=== PATIENT | female | born 1975 | race Caucasian/White ===

== ENCOUNTER 2017-11-30 19:46 | Emergency (ER) | payer OTHER, SELFPAY ==
[2017-11-30 19:47] VITALS: BP 152/63; PULSE 113; RESP 18; TEMP 36.9; O2SAT 100; BMI 33.9
--- NOTE | 2017-11-30 21:17 | CT_ITS ---
STUDY: CT ABDOMEN AND PELVIS WITHOUT CONTRAST REASON FOR EXAM: Female, 42 years old. Right flank pain RADIATION DOSAGE (If Supplied By Facility): CTDIvol = ( 13.42 ) mGy, DLP = ( 673.84 ) mGycm TECHNIQUE: Transaxial images were obtained from the dome of the diaphragm to the symphysis pubis without oral contrast, and without intravenous contrast. Sagittal and coronal images were reconstructed. Individualized dose optimization techniques were used for this CT. COMPARISON: March 30, 2015 FINDINGS: The visualized lung bases are unremarkable. The visualized portions of the heart are within normal limits. 2.1 cm simple cyst lateral aspect of the liver. Normal gallbladder and extrahepatic biliary system. Normal spleen. Normal pancreas. Normal bilateral adrenal glands. There are punctate bilateral nonobstructing nephroliths. Normal visualized stomach. Normal small intestine. Normal colon. The appendix is visualized and appears normal. Normal abdominal aorta. Normal inferior vena cava. Normal retroperitoneum. Normal urinary bladder. Fat-containing umbilical hernia. Normal osseous structures. Surgical clips noted in the pelvis. CT/Abdomen/Pelvis without Cont IMPRESSION: Nonobstructing bilateral nephroliths. No radiodense ureterolith. Electronically Signed: Armando Carrion MD at 22:17 EST , Service support ,
[2017-11-30] MEDS: Ondansetron 4 MG/2 ML Vial IV (21:31)
[2017-11-30] MEDS: 0.9% Normal Saline 1,000 ML 250 ML IV (21:31)
[2017-11-30] MEDS: Ketorolac 30 MG/ML Syringe IV (21:31)
[2017-11-30 21:40] LABS: Absolute Lymphocyte Count 2.96 X10^3/ul (0.83-4.51); Absolute Neutrophil Count 4.3 X10^3/uL (2.0-7.7); Basophil# 0.02 X10^3/uL; Basophil% 0.2 % (0-1); Eosinophil# 0.23 X10^3/uL; Eosinophils% 2.8 % (0-5); Hematocrit 41.8 % (37-47); Hemoglobin 13.8 g/dl (12.0-15.0); Lymphocyte # 2.96 X10^3/ul (4.0); Lymphocyte % 36.6 % (19-41); Mean Corpuscular Hgb 28.4 pg (27.0-32.0); Monocyte# 0.56 X10^3/uL; Monocyte% 6.9 % (0-10); Neutrophil # 4.31 X10^3/uL (2.7-7.7); Neutrophil % 53.4 % (47-70); Platelet Count 250 K/mm3 (150-450); RBC Distribution Width CV 13.3 % (11.6-14.6); RBC Distribution Width SD 41.9 fl (35.1-43.9); Red Blood Count 4.86 M/mm3 (4.2-5.4); White Blood Count 8.1 K/mm3 (4.4-11.0)
[2017-11-30 21:41] LABS: POSITIVE COUNT NO; POSITIVE DIFFERENTIAL NO; POSITIVE MORPHOLOGY NO
[2017-11-30 21:49] LABS: Anion Gap 7 (5-15); BUN 13 mg/dL (7-18); BUN/Creat Ratio 15.3 RATIO (10-20); Chloride 109 mmol/L (98-107); Creatinine, Serum 0.85 mg/dL (0.55-1.02); EST Glomerular Filtration Rate 79 mL/min (>60); Est Glom Filt Rate - Afr Amer 95 mL/min (>60); Estimated Creatinine Clearance 79.17 ml/min; Glucose 85 mg/dL (74-106); Potassium 3.8 mmol/L (3.5-5.1); Sodium Level 142 mmol/L (136-145)
[2017-11-30 22:03] LABS: Bacteria 0 SEEN /hpf (None Seen); Color, Urine Yellow (Yellow); Glucose, Dipstick Normal (Normal); Ketone-Dipstick Negative (Negative); Leukocyte Esterase-Dipstick Negative /ul (Negative); Mucous, Urine 0 SEEN /hpf (<or=2+); Nitrite-Dipstick Negative (Negative); Occult Blood-Urine Negative /ul (Negative); Protein-Dipstick Negative (Negative); Urine Bilirubin Dipstick Negative (Negative); Urine Clarity Clear (Clear); Urine Urobilinogen Normal (Normal); White Blood Cells 0 SEEN /hpf (0-5)
[2017-11-30 22:18] LABS: Squamous Epithelial Cells - UA 5-10 SEEN /hpf (5-10)
[2017-11-30 22:19] LABS: Red Blood Cells-Urine 0-5 SEEN /hpf (0-5); Yeast-Urine RARE /hpf (None Seen)
--- NOTE | 2017-11-30 22:56 | CT_ITS ---
STUDY: CT ABDOMEN AND PELVIS WITH CONTRAST REASON FOR EXAM: Female, 42 years old. Right flank pain. Possible renal infarct. RADIATION DOSAGE (If Supplied By Facility): CTDIvol = ( 19.33 ) mGy, DLP = ( 2093.82 ) mGycm TECHNIQUE: Transaxial images were obtained from the dome of the diaphragm to the symphysis pubis without oral contrast. 100ML ml of Isovue 300 contrast was administered. Sagittal and coronal images were reconstructed. Individualized dose optimization techniques were used for this CT. COMPARISON: March 30, 2015. November 30, 2017 at 9:43 PM. FINDINGS: The visualized lung bases are unremarkable. The visualized portions of the heart are within normal limits. 2.6 cm simple cyst lateral aspect, anterior segment right lobe of the liver slightly increased in size since the study of 2014. Normal gallbladder and extrahepatic biliary system. Normal spleen. Normal pancreas. Normal bilateral adrenal glands. Scattered punctate nonobstructing bilateral renal calculi noted on the most recent prior study. Scattered renal calculi similar in size were present on the study of 2014. No evidence of a renal infarction. Normal visualized stomach. Normal small intestine. Normal colon. The appendix is well visualized and appears normal. Normal abdominal aorta. Normal inferior vena cava. Normal retroperitoneum. Scattered subcentimeter left para-aortic lymph nodes coronal image 63 unchanged. No intra-abdominal free air. Normal urinary bladder. There is absence of the uterus consistent with a prior hysterectomy. No adnexal masses seen. Subcentimeter right ovarian cysts. Surgical clips in the inferior pelvis in the midline. There is a small umbilical hernia containing fat. Normal osseous structures. CT/Abdomen/Pelvis W IV Cont ONLY IMPRESSION: No acute findings in the abdomen or pelvis. Small bilateral nonobstructing renal calculi. No evidence of a renal infarct. Colon is grossly normal. Simple right hepatic cyst. No evidence of bowel obstruction. Right ovarian cysts compatible with physiologic cysts. Electronically Signed: Ja Ackerman MD at 0:20 EST , Service support ,
--- NOTE | 2017-11-30 22:57 | ED.VISSUMM ---
- ER Visit Summary Date of Service: 11/30/17 Chief Complaint: Flank pain History of Present Illness: The patient is a 42 F who presents with a right flank pain. She states it has been present for little over week. Seems to come and go. Is gotten more severe over the past day. She does have a history of kidney stones and states that it feels similar but is lower than where it should be. She denies any urinary symptoms. No vomiting or diarrhea. Physical Examination: Afebrile vital signs are stable Gen: Well-nourished well-developed patient is pacing the room Head: Normocephalic atraumatic Eyes: Perrl EOMI ENT: TMs clear no rhinorrhea moist mucous membranes Neck: Supple no lymphadenopathy no JVD nontender CVS: Regular rate rhythm no murmurs normal S1-S2 Respiratory: No distress clear to auscultation bilaterally chest nontender Abdomen: Soft nontender nondistended normal bowel sounds no masses Back: Right CVA tenderness she has tenderness just below the severe area as well. Extremity: Nontender no edema Skin: Normal color no rash Neuro: alert orientated ?3 CN II-XII intact normal strength sensation reflexes gait cerebellar Psych: Normal affect normal mood Test Results: CBC chemistries negative urinalysis no hematuria or evidence of infection CT noncontrasted does not demonstrate an obvious source for the patient's pain Emergency Department Course and Treatment: Patient received IV fluids Toradol morphine and Zofran. Discussed with the patient we decided to repeat the CT with IV contrast. This did not add an obvious cause to the patient's pain did not show any renal infarct. I will write the patient for a few [place]. She is to follow-up with her doctor. Impression: 1. Right flank pain This note was generated with [employer] dictation software. It may contain incorrect words, spelling, and punctuation that were not noted in review of the chart prior to signing ED Disposition - Plan for ED Patient: Disposition: Home or Assisted Living Chief Complaint: Flank Pain Instructions: ED Flank Pain Uncertain Cause Prescriptions: Hydrocodone Bitart/Apap 5-325 [[place] 5/325] 1 - 2 tab PO Q4H PRN PRN 4 Days #20 tab PRN Reason: Pain Referrals: Sunil Kenney MD [Primary Care Provider] - 2 Days
--- NOTE | 2017-11-30 23:00 | ED.DCSUM_ITS ---
- ER Visit Summary Date of Service: 11/30/17 Chief Complaint: Flank pain History of Present Illness: The patient is a 42 F who presents with a right flank pain. She states it has been present for little over week. Seems to come and go. Is gotten more severe over the past day. She does have a history of kidney stones and states that it feels similar but is lower than where it should be. She denies any urinary symptoms. No vomiting or diarrhea. Physical Examination: Afebrile vital signs are stable Gen: Well-nourished well-developed patient is pacing the room Head: Normocephalic atraumatic Eyes: Perrl EOMI ENT: TMs clear no rhinorrhea moist mucous membranes Neck: Supple no lymphadenopathy no JVD nontender CVS: Regular rate rhythm no murmurs normal S1-S2 Respiratory: No distress clear to auscultation bilaterally chest nontender Abdomen: Soft nontender nondistended normal bowel sounds no masses Back: Right CVA tenderness she has tenderness just below the severe area as well. Extremity: Nontender no edema Skin: Normal color no rash Neuro: alert orientated ?3 CN II-XII intact normal strength sensation reflexes gait cerebellar Psych: Normal affect normal mood Test Results: CBC chemistries negative urinalysis no hematuria or evidence of infection CT noncontrasted does not demonstrate an obvious source for the patient's pain Emergency Department Course and Treatment: Patient received IV fluids Toradol morphine and Zofran. Discussed with the patient we decided to repeat the CT with IV contrast. This did not add an obvious cause to the patient's pain did not show any renal infarct. I will write the patient for a few [place]. She is to follow-up with her doctor. Impression: 1. Right flank pain This note was generated with [employer] dictation software. It may contain incorrect words, spelling, and punctuation that were not noted in review of the chart prior to signing ED Disposition - Plan for ED Patient: Disposition: Home or Assisted Living Chief Complaint: Flank Pain Instructions: ED Flank Pain Uncertain Cause Prescriptions: Hydrocodone Bitart/Apap 5-325 [[place] 5/325] 1 - 2 tab PO Q4H PRN PRN 4 Days #20 tab PRN Reason: Pain Referrals: Sunil Kenney MD [Primary Care Provider] - 2 Days
[2017-12-01] MEDS: HYDROcodone Bitartrate/Apap 5/325 Tablet PO ×2 (00:04→00:48)
[2017-12-01] MEDS: diazePAM 5 MG Tablet PO (00:04)
[2017-12-01 00:05] VITALS: BP 126/72; PULSE 95; RESP 16; O2SAT 96
[2017-12-01 00:50] VITALS: BP 126/76; PULSE 98; RESP 16; O2SAT 99
== END 2017-12-01 00:51 | disposition home or self-care (01) ==
PROVIDERS: Emergency Provider Emergency Medicine; Family Provider Family Medicine; PCP Family Medicine
DX: R10.9 Unspecified abdominal pain (principal); Z87.442 Personal history of urinary calculi
CPT/HCPCS: 74176; 74177; 80048; 81001; 85025; 96361; 96374; 96375; 99283; J7030; Q9967; A4216; J2405

== ENCOUNTER → 2018-06-22 09:17 | Outpatient (CLI) | payer OTHER, SELFPAY ==
[2018-06-22 10:02] LABS: Thyroid Stim Hormone (TSH) 2.37 uIU/mL (0.358-3.74)
== END ==
PROVIDERS: Family Provider Family Medicine; PCP Family Medicine; Referring Provider Family Medicine; Visit Provider Family Medicine
DX: E04.1 Nontoxic single thyroid nodule (principal)
CPT/HCPCS: 84443

== ENCOUNTER → 2019-02-13 17:53 | Outpatient (CLI) | payer OTHER, SELFPAY ==
[2019-01-31 09:45] VITALS: BMI 33.3
== END ==
PROVIDERS: Family Provider Family Medicine; PCP Family Medicine; Referring Provider Nurse Practitioner Family; Visit Provider Nurse Practitioner Family
DX: R35.0 Frequency of micturition (principal)
CPT/HCPCS: 87086; 87088

== ENCOUNTER 2019-02-22 07:11 | Day surgery (SDC) | payer OTHER, SELFPAY ==
[2019-01-31 09:45] VITALS: BMI 33.3
--- NOTE | 2019-02-01 10:32 | HP_ITS ---
Intake Vital Signs 01/31/19 Body Mass Index (BMI) 33.3 Intake Visit Reasons: Hemorrhoid FU per patient Chief Complaint: recheck rectum Torch Brazer Required: No Is patient in pain?: Yes Allergies sulfamethoxazole [From Bactrim] Allergy (Unknown, Verified 11/22/18 13:01) Unknown trimethoprim [From Bactrim] Allergy (Unknown, Verified 11/22/18 13:01) Unknown amoxicillin trihydrate [From Augmentin] Allergy (Verified 11/22/18 13:01) Other potassium clavulanate [From Augmentin] Allergy (Verified 11/22/18 13:01) Other codeine Adverse Reaction (Verified 11/22/18 13:01) Vomiting Sulfa (Sulfonamide Antibiotics) Adverse Reaction (Verified 11/22/18 13:01) Mucosal lesions Medications Cyclobenzaprine [Flexeril] 10 mg PO PRN PRN 11/30/17 [History Confirmed 11/22/18] Sertraline HCl [Zoloft] 100 mg PO DAILY 11/30/17 [History Confirmed 11/22/18] albuterol sulfate HFA 90 mcg/actuation aerosol inhaler 2 puff INHALATION Q6H PRN 10/24/18 [History Confirmed 11/22/18] cetirizine 10 mg capsule 10 mg PO DAILY PRN 10/24/18 [History Confirmed 11/22/18] hydrocortisone 2.5 % rectal cream with applicator % TOPICAL PRN 10/24/18 [History Confirmed 11/22/18] zolpidem 5 mg tablet 5 mg PO QHS PRN 10/24/18 [History Confirmed 11/22/18] hydrocortisone 2.5 % topical cream with perineal applicator 1 applic RC QD-BID PRN #30 g 01/06/19 [Rx Confirmed 01/06/19] Is last menstrual period known: No Post menopausal: No Patient : No PFSH Medical History Hx of hysterectomy (Acute) Thyroid nodule (Acute) Hemorrhoids (Chronic) Constipation (Acute) Anxiety (Acute) Depression (Acute) Rectal fissure (Acute) Surgical History Hx of bilateral breast reduction surgery (Acute) History of repair of rectocele (Acute) History of tonsillectomy and adenoidectomy (Acute) Family History Mother Heart disease Father Heart disease High cholesterol Social History Smoking Status: Never smoker second hand exposure: No alcohol intake: never substance use type: does not use caffeine: Yes what type of physical activity do you participate in: none frequency: does not exercise HPI HPI HPI: CARLOS MORIN, is a 43 F who presents to the office today for HPI HPI Surgical H&P: Yes HPI: CARLOS MORIN, is a 43 F who presents to the office today for follow- up for anal fissure and hemorrhoids. Patient states she believes her fissure has improved however she thinks her hemorrhoids are worsening. Patient has been using nifedipine with lidocaine ointment as well as some Anusol cream. Patient states she has bowel once daily. States she does have still minimal blood per rectum on the toilet paper. Patient did have a picture which showed enlarged internal hemorrhoids as well as the external residual tissue that has been present previously. Patient has had no previous colonoscopy denies any family history of colon cancer. Patient states that she feels when she sits there is a pressure sometimes she denies straining or prolonged time on the toilet and has been taking the fiber and stool softeners with Senokot about once a week. She states her reflux is much better with the 20 mg of omeprazole daily denies any symptoms. 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 Digital rectal exam patient does have internal components to her hemorrhoids however not overly enlarged at this time, no gross blood or masses on exam normal sphincter tone. Assessment & Plan Problems 1. BRBPR (bright red blood per rectum) K62.5 2. Anal fissure K60.2 3. Hemorrhoids K64.9 4. Gastroesophageal reflux disease K21.9 Plan Sent in a prescription for hydrocortisone 2.5% and lidocaine 5% suppositories as per patient's picture appears she is having issues with internal hemorrhoids circumferentially however in the office the internal hemorrhoids are not as prominent on exam as they were in the patient's picture. Patient states she has been having bowel movements daily has continue the fiber as well as stool softener and does occasional Senokot once a week, she denies straining or prolonged time on the toilet. Reflux controlled with omeprazole 20 mg p.o. daily continue. I have discussed the above with the patient. I have offered the patient colonoscopy for evaluation. I have explained the risks/benefits of the procedure and described the procedure. I have discussed the risks with the patient, including but not limited to: infection, bleeding, perforation of the GI tract requiring emergency surgery, inability to complete the procedure, injury to any internal organs, complications of anesthesia, etc. - the patient understands and agrees to proceed. I have answered all the patient's questions to the patient's satisfaction and the patient has no further questions. The patient has been given instructions for the colon cleansing preparation. 1 day of clears, MiraLAX/Dulcolax split prep Danielle Jackson M.D. Pager: [phone] [facility] [address] [place] [address], [address] [place] [address] Office: [phone] Dulcolax split prep. Orders Orders: Colonoscopy 01/31/19 Plan Detail Follow Up We will schedule colonoscopy Coding Level of Care Code Off vis,est,level 3 Diagnoses BRBPR (bright red blood per rectum) K62.5 Anal fissure K60.2 Hemorrhoids K64.9 Gastroesophageal reflux disease K21.9 02/01/19 1032 <Electronically signed by Danielle Jackson MD> Date Danielle Jackson MD I have examined the patient the following changes are noted: Patient still has occasional issues with her hemorrhoids and some pain with bowel movements however denies any blood. Patient also complains of some bladder pressure states she was treated with Macrobid for UTI however the culture did not show a UTI once it was completed. And she is still having the pressure with urination denies pain.
[2019-02-22 07:35] VITALS: BP 119/90; PULSE 79; RESP 16; TEMP 36.7; O2SAT 100; BMI 33.3
[2019-02-22 08:20] VITALS: BP 119/90; BP 97/60; PULSE 74; RESP 16; TEMP 36.5; O2SAT 100
--- NOTE | 2019-02-22 08:24 | OP.ENDO_ITS ---
02/22/2019 Sunil Kenney [address] [place] [address] Re : Colonoscopy procedure for Maci Garvey Dear Dr. Kenney This procedure was performed on Friday, February 22, 2019. My impressions and recommendations are as follows: Impressions : - Hemorrhoids found on perianal exam. - Non-bleeding external and internal hemorrhoids. - The entire examined colon is normal. - No specimens collected. Recommendations : - Discharge patient to home. - High fiber diet. - Continue present medications. - Repeat colonoscopy in 10 years for screening purposes. My findings are described in the full procedure note, which is enclosed. If I can be of further assistance, please feel free to contact me at Doctor phone number(s): , Work: . Sincerely, MD Danielle Albarran MD 02/22/2019 8:24:47 AM This report has been signed electronically.
[2019-02-22 08:25] VITALS: BP 119/90; BP 99/67; PULSE 76; RESP 16; O2SAT 100
[2019-02-22 08:30] VITALS: BP 119/90; BP 98/69; PULSE 74; RESP 16; O2SAT 100
[2019-02-22 08:38] VITALS: BP 103/72; BP 119/90; PULSE 72; RESP 16; TEMP 36.6; O2SAT 100
[2019-02-22 08:55] VITALS: BP 119/90
== END 2019-02-22 09:01 | disposition home or self-care (01) ==
LOC: EN 07:12 → AC 07:13
PROVIDERS: Family Provider Family Medicine; PCP Family Medicine; Referring Provider Family Medicine; Visit Provider Surgery
PROC: 0DJD8ZZ Inspection of Lower Intestinal Tract, Via Natural or Artificial Opening Endoscopic (ICD-10-PCS; CPT 45378; principal; 2019-02-22 07:55)
DX: K64.0 First degree hemorrhoids (principal); K21.9 Gastro-esophageal reflux disease without esophagitis; K60.2 Anal fissure, unspecified; K64.4 Residual hemorrhoidal skin tags; Z87.19 Personal history of other diseases of the digestive system; Z79.899 Other long term (current) drug therapy; E04.1 Nontoxic single thyroid nodule; F41.9 Anxiety disorder, unspecified; F32.9 Major depressive disorder, single episode, unspecified; J45.909 Unspecified asthma, uncomplicated
CPT/HCPCS: 45378; J7120

== ENCOUNTER 2019-03-06 11:52 | Day surgery (SDC) | payer OTHER, SELFPAY ==
[2019-03-02 10:09] VITALS: BMI 33.3
[2019-03-06] VITALS (9 sets, daily range): BP systolic 113–122; BP diastolic 57–89; PULSE 76–88; RESP 16; TEMP 36.1–36.8; O2SAT 94–100; BMI 33.2
--- NOTE | 2019-03-06 13:08 | HP.PCM_ITS ---
History and Physical Date of Admission: 03/06/19 Intake Vital Signs 03/02/19 Body Mass Index (BMI) 33.3 Intake Visit Reasons: Discuss Hemorroidectomy Surgery Chief Complaint: recheck rectum Finger Cobbler Required: No Is patient in pain?: Yes (rectal pain) Allergies sulfamethoxazole [From Bactrim] Allergy (Unknown, Verified 03/02/19 10:08) Unknown trimethoprim [From Bactrim] Allergy (Unknown, Verified 03/02/19 10:08) Unknown amoxicillin trihydrate [From Augmentin] Allergy (Verified 03/02/19 10:08) Other potassium clavulanate [From Augmentin] Allergy (Verified 03/02/19 10:08) Other codeine Adverse Reaction (Verified 03/02/19 10:08) Vomiting Sulfa (Sulfonamide Antibiotics) Adverse Reaction (Verified 03/02/19 10:08) Mucosal lesions Medications Sertraline HCl [Zoloft] 100 mg PO DAILY 11/30/17 [History Confirmed 03/02/19] albuterol sulfate HFA 90 mcg/actuation aerosol inhaler 2 puff INHALATION Q6H PRN 10/24/18 [History Confirmed 03/02/19] cetirizine 10 mg capsule 10 mg PO DAILY PRN 10/24/18 [History Confirmed 03/02/19] hydrocortisone 2.5 % rectal cream with applicator 1 % TOPICAL PRN PRN 10/24/18 [History Confirmed 03/02/19] zolpidem 5 mg tablet 5 mg PO QHS PRN 10/24/18 [History Confirmed 03/02/19] hydrocortisone 2.5 % topical cream with perineal applicator 1 applic RC QD-BID PRN #30 g 01/06/19 [Rx Confirmed 03/02/19] Omeprazole Magnesium [Prilosec Otc] 20 mg PO DAILY 02/15/19 [History Confirmed 03/02/19] PFSH Medical History Hx of hysterectomy (Acute) Thyroid nodule (Acute) Hemorrhoids (Chronic) Constipation (Acute) Anxiety (Acute) Depression (Acute) Rectal fissure (Acute) Surgical History Hx of bilateral breast reduction surgery (Acute) History of repair of rectocele (Acute) History of tonsillectomy and adenoidectomy (Acute) Family History Mother Heart disease Father Heart disease High cholesterol Social History Smoking Status: Never smoker second hand exposure: No alcohol intake: never substance use type: does not use caffeine: Yes what type of physical activity do you participate in: none frequency: does not exercise HPI HPI HPI: CARLOS MORIN, is a 44 F who presents to the office today for HPI HPI Surgical H&P: Yes HPI: CARLOS MORIN, is a 44 F who presents to the office today for hemorrhoids/anal fissure. Patient states she is still having some blood in the toilet as well as when she is wiping. She also has pain with bowel movements as well as after bowel movements. Patient states the pain is a 5/10 with a bowel movement in 4/10 rest the day. Patient had tried medical management however that has not made much of a difference. Patient's colonoscopy showed a normal colon in internal and external hemorrhoids. Patient would like to proceed with surgery. Patient has been taking fiber gummy supplements as well as stool softeners she has not currently been doing sitz baths. ROS General General: No weight change or fatigue Gastro Gastrointestinal: No abdominal pain, No nausea or vomiting, No diarrhea, Yes blood in stool, Yes acid reflux (controlled with meds), Yes hemorrhoids, No black,tarry stools Exam Const General: cooperative, comfortable, no acute distress Resp Effort & Inspection: normal respiratory effort Cardio Rate: regular rate GI Inspection: non-distended Palpation: soft, no guarding, nontender Other: HAWA: Deferred Neuro General: oriented x3 Cranial Nerves: CN's II-XI intact bilaterally Extrem General: no clubbing, cyanosis or edema Assessment & Plan Problems 1. Anal fissure K60.2 2. BRBPR (bright red blood per rectum) K62.5 3. Hemorrhoids K64.9 Plan Reviewed the procedure: Bolycsjuwifgkocs-1-9 cushions, lateral internal sphincterotomy including risks but not limited to bleeding, infection, incontinence, urinary retention, anal stenosis and anesthesia. Discussed patient will only plan to do only 2 of the 3 columns of hemorrhoidal cushions. Discussed with patient this can be a painful procedure and it is important to balance the pain meds and stool softeners/sitz bath's to try to still continue to have soft stools, no constipation or diarrhea as those can make hemorrhoids worse. Patient was agreeable with plan had no further questions this time. Danielle Jackson M.D. Pager: [phone] [facility] [address] [place] [address], [address] [place] [address] Office: [phone] Plan Detail Follow Up We will schedule surgery Coding Level of Care Code Off vis,est,level 3 Diagnoses Anal fissure K60.2 BRBPR (bright red blood per rectum) K62.5 Hemorrhoids K64.9 03/02/19 1029 <Electronically signed by Danielle Jackson MD> Date Danielle Jackson MD
--- NOTE | 2019-03-06 13:30 | HEM_PTH ---
PATIENT: CARLOS MORIN LOC: [facility] U#:[id number] AGE/SX: 44/F ROOM: RE03/06/[address]: Dr. Danielle Jackson MD : 1975 BED: DIS: 03/06/2019 SPEC #: [id number] RECD: 03/06/19 16:37 STATUS: MARCOS REChelsie #: [id number] TREVOR: 03/06/19 13:[address]: Danielle Jackson DEPT: SURGICAL PATHOLOGY RECD BY: Nestor Wilson ENTERED: 03/07/19 09:15 SP TYPE: HEMORRHOID OTHR DR: Dr. Sunil Kenney MD Tissues: HEMORRHOIDS Procedures: Surgery Specimen Level III HEADER OPERATION: Hemorrhoidectomy, lateral internal sphincterotomy PRE-OP DIAGNOSIS: Anal fissure, hemorrhoids, bright red blood per rectum TISSUE SUBMITTED: Hemorrhoids MICROSCOPIC DIAGNOSIS Hemorrhoids: Fragments of anorectal mucosa with dilated and congested blood vessels, consistent with hemorrhoids. SINDY:ishmael 03/08/19 MICROSCOPIC DESCRIPTION Slides are reviewed. GROSS DESCRIPTION Received in fixative is one container labeled with the patient's name and designated hemorrhoids. The specimen consists of two irregular fragments of pink-benitez soft tissue that in aggregate measure 2.5 x 2 x 0.8 cm. Stitch Bonder Machine Operator Helper sections are submitted in one cassette. / SINDY:ishmael 03/07/19 TC:5 CPT: 56044
[2019-03-06] MEDS: BUPIVACAINE LIPOSOME/PF 20 ML VIAL OPERA.SITE (14:15)
[2019-03-06] MEDS: Dibucaine 30 GM Tube 1 APPLIC (14:25)
--- NOTE | 2019-03-06 14:28 | PCM.OPRPT ---
Report of Operation Date of Procedure: 03/06/19 Pre-Operative Diagnosis: External and internal hemorrhoid, chronic anal fissure Post-Operative Diagnosis: Same Surgery/Procedure Performed:: Hemorrhoidectomy, lateral internal sphincterotomy event marketing specialist: Berry Acuña Type of Anesthesia:: General/Supplemental Anesthesiologist: Liu Martínez Special Medications: None Estimated Blood Loss (mL): 10 cc Fluids Replaced: 1000 cc Description of Procedure: The patient was brought into the operating room and general anesthesia was induced. She was placed in prone jackknife lithotomy position. A timeout was completed verifying correct patient, procedure, site, mposition, and special equipment prior to beginning the procedure. The buttocks were taped apart. Perineum was prepared prepped and draped in standard sterile fashion. Local anesthesia was injected as a perianal nerve block-1% lidocaine one-to-one mixture with Exparel with epi total of 13 mL. Anus carefully dilated. Small Hill-Rodriguez retractor was introduced and 3 marginal pedicles identified. She was noted to have internal and external hemorrhoids at the right posterior location with anal fissure at the posterior position. 2-0 Vicryl suture was placed at the base of the pedicle and retracted externally to exteriorize the hemorrhoidal pedicle. An elliptical incision was made extending from perianal skin to anal rectal ring including both internal and external hemorrhoids and excising a minimal amount of anoderm. Cautery was used to separate the hemorrhoid from the underlying tissue. Careful not to involve any of the sphincter muscle. The pedicle was indicated from the base and sent to pathology. Hemostasis was achieved using electrocautery. Following the hemostasis the skin and mucosal incisions were closed with the running locking suture of 2-0 chromic. Next attention was turned to the left lateral position incision was made in the anal mucosa and the internal sphincter was identified. Using Metzenbaum scissors approximately third of the anal sphincter was divided hemostasis was obtained with electrocautery. The incision was sutured with 2-0 chromic running locking suture A Surgifoam with dibucaine was placed in the anus. The rest of the Exparel was used for local anesthesia for a total of 20 cc throughout the case. A gauze pad tucked between the gluteal folds. The patient tolerated procedure well and was extubated and taken to the postanesthesia care unit in stable condition. - Complications none
--- NOTE | 2019-03-06 14:32 | OP.PCM_ITS ---
Report of Operation Date of Procedure: 03/06/19 Pre-Operative Diagnosis: External and internal hemorrhoid, chronic anal fissure Post-Operative Diagnosis: Same Surgery/Procedure Performed:: Hemorrhoidectomy, lateral internal sphincterotomy records tech: Berry Acuña Type of Anesthesia:: General/Supplemental Anesthesiologist: Liu Martínez Special Medications: None Estimated Blood Loss (mL): 10 cc Fluids Replaced: 1000 cc Description of Procedure: The patient was brought into the operating room and general anesthesia was induced. She was placed in prone jackknife lithotomy position. A timeout was completed verifying correct patient, procedure, site, mposition, and special equipment prior to beginning the procedure. The buttocks were taped apart. Perineum was prepared prepped and draped in standard sterile fashion. Local anesthesia was injected as a perianal nerve block-1% lidocaine one-to-one mixture with Exparel with epi total of 13 mL. Anus carefully dilated. Small Hill-Rodriguez retractor was introduced and 3 marginal pedicles identified. She was noted to have internal and external hemorrhoids at the right posterior location with anal fissure at the posterior position. 2-0 Vicryl suture was placed at the base of the pedicle and retracted externally to exteriorize the hemorrhoidal pedicle. An elliptical incision was made extending from perianal skin to anal rectal ring including both internal and external hemorrhoids and excising a minimal amount of anoderm. Cautery was used to separate the hemorrhoid from the underlying tissue. Careful not to involve any of the sphincter muscle. The pedicle was indicated from the base and sent to pathology. Hemostasis was achieved using electrocautery. Following the hemostasis the skin and mucosal incisions were closed with the running locking suture of 2-0 chromic. Next attention was turned to the left lateral p osition incision was made in the anal mucosa and the internal sphincter was identified. Using Metzenbaum scissors approximately third of the anal sphincter was divided hemostasis was obtained with electrocautery. The incision was sutured with 2-0 chromic running locking suture A Surgifoam with dibucaine was placed in the anus. The rest of the Exparel was used for local anesthesia for a total of 20 cc throughout the case. A gauze pad tucked between the gluteal folds. The patient tolerated procedure well and was extubated and taken to the postanesthesia care unit in stable condition. - Complications none
--- NOTE | 2019-03-06 14:33 | PCM.DC.GS ---
Discharge Diet: Light diet - advance as tolerated Discharge Activity: May not drive while taking narcotic pain medications. May shower in (days): 1 Lifting Restrictions: No lifting greater than 20 pounds x 4 weeks Call your doctor if your incision/area has: Continuous Slow Oozing, Sudden Increased Bleeding, Increased Pain/ Swelling, Increased Redness, Foul Smelling Discharge, Swelling at the incision site Call your doctor if you observe: Fever of 101 or Higher Additional Instructions: It okay to take ibuprofen 400-600 mg PO q6hr PRN along with the Percocet. Avoid Tylenol since there is already Tylenol in the Percocet. Take all pain meds with food. Percocet can cause constipation recommend taking stool softener (i.e. Colace/docusate) daily or twice daily while taking the pain meds. Recommend starting some MiraLAX in 1 to 2 days if no bowel movement. Sitz bath's 2-3 times daily Use dibucaine to the rectal area to the 4 times as needed, once that runs out okay to get [id number] lidocaine 5% and apply similarly. Allergies/Adverse Reactions: Allergies sulfamethoxazole [From Bactrim] Allergy (Unknown, Verified 03/03/19 10:24) Unknown trimethoprim [From Bactrim] Allergy (Unknown, Verified 03/03/19 10:24) Unknown amoxicillin trihydrate [From Augmentin] Allergy (Verified 03/03/19 10:24) Other potassium clavulanate [From Augmentin] Allergy (Verified 03/03/19 10:24) Other codeine Adverse Reaction (Verified 03/03/19 10:24) Vomiting Sulfa (Sulfonamide Antibiotics) Adverse Reaction (Verified 03/03/19 10:24) Mucosal lesions Medications to take at Discharge Sertraline HCl [Zoloft] 100 mg PO DAILY 11/30/17 albuterol sulfate HFA 90 mcg/actuation aerosol inhaler 2 puff INHALATION Q6H PRN 10/24/18 cetirizine 10 mg capsule 10 mg PO DAILY PRN 10/24/18 hydrocortisone 2.5 % rectal cream with applicator 1 % TOPICAL PRN PRN 10/24/18 zolpidem 5 mg tablet 5 mg PO QHS PRN 10/24/18 hydrocortisone 2.5 % topical cream with perineal applicator 1 applic RC QD-BID PRN #30 g 04/12/19 Omeprazole Magnesium [Prilosec Otc] 20 mg PO DAILY 02/15/19 Oxycodone HCl/Acetaminophen [Percocet 5/325] 1 - 2 tablet PO Q4H PRN PRN 5 Days #40 tablet 03/06/19 The following prescriptions were given: Oxycodone HCl/Acetaminophen [Percocet 5/325] 1 - 2 tablet PO Q4H PRN PRN 5 Days #40 tablet PRN Reason: Pain Primary Care Physician: Sunil Kenney MD [Primary Care Provider] - Test Results: Test results from this visit will be discussed in further detail at your follow-up appointment, if applicable. Please Follow Up With: Danielle Jackson MD - At 5:00 on the weekends call [phone] with any concerns When: Call the office for a follow-up appointment in 3 weeks. Proposed Discharge Date: 03/06/19
--- NOTE | 2019-03-06 14:36 | DCINST_ITS ---
Discharge Diet: Light diet - advance as tolerated Discharge Activity: May not drive while taking narcotic pain medications. May shower in (days): 1 Lifting Restrictions: No lifting greater than 20 pounds x 4 weeks Call your doctor if your incision/area has: Continuous Slow Oozing, Sudden Increased Bleeding, Increased Pain/ Swelling, Increased Redness, Foul Smelling Discharge, Swelling at the incision site Call your doctor if you observe: Fever of 101 or Higher Additional Instructions: It okay to take ibuprofen 400-600 mg PO q6hr PRN along with the Percocet. Avoid Tylenol since there is already Tylenol in the Percocet. Take all pain meds with food. Percocet can cause constipation recommend taking stool softener (i.e. Colace/docusate) daily or twice daily while taking the pain meds. Recommend starting some MiraLAX in 1 to 2 days if no bowel movement. Sitz bath's 2-3 times daily Use dibucaine to the rectal area to the 4 times as needed, once that runs out okay to get [id number] lidocaine 5% and apply similarly. Allergies/Adverse Reactions: Allergies sulfamethoxazole [From Bactrim] Allergy (Unknown, Verified 03/03/19 10:24) Unknown trimethoprim [From Bactrim] Allergy (Unknown, Verified 03/03/19 10:24) Unknown amoxicillin trihydrate [From Augmentin] Allergy (Verified 03/03/19 10:24) Other potassium clavulanate [From Augmentin] Allergy (Verified 03/03/19 10:24) Other codeine Adverse Reaction (Verified 03/03/19 10:24) Vomiting Sulfa (Sulfonamide Antibiotics) Adverse Reaction (Verified 03/03/19 10:24) Mucosal lesions Medications to take at Discharge Sertraline HCl [Zoloft] 100 mg PO DAILY 11/30/17 albuterol sulfate HFA 90 mcg/actuation aerosol inhaler 2 puff INHALATION Q6H PRN 10/24/18 cetirizine 10 mg capsule 10 mg PO DAILY PRN 10/24/18 hydrocortisone 2.5 % rectal cream with applicator 1 % TOPICAL PRN PRN 10/24/18 zolpidem 5 mg tablet 5 mg PO QHS PRN 10/24/18 hydrocortisone 2.5 % topical cream with perineal applicator 1 applic RC QD-BID PRN #30 g 04/12/19 Omeprazole Magnesium [Prilosec Otc] 20 mg PO DAILY 02/15/19 Oxycodone HCl/Acetaminophen [Percocet 5/325] 1 - 2 tablet PO Q4H PRN PRN 5 Days #40 tablet 03/06/19 The following prescriptions were given: Oxycodone HCl/Acetaminophen [Percocet 5/325] 1 - 2 tablet PO Q4H PRN PRN 5 Days #40 tablet PRN Reason: Pain Primary Care Physician: Sunil Kenney MD [Primary Care Provider] - Test Results: Test results from this visit will be discussed in further detail at your follow- up appointment, if applicable. Please Follow Up With: Danielle Jackson MD - At 5:00 on the weekends call [phone] with any concerns When: Call the office for a follow-up appointment in 3 weeks. Proposed Discharge Date: 03/06/19
[2019-03-06] MEDS: dexAMETHasone 10 MG/ML Vial IV (15:36)
== END 2019-03-06 16:55 | disposition home or self-care (01) ==
LOC: SDC 11:54 → AC 11:55
PROVIDERS: Family Provider Family Medicine; PCP Family Medicine; Referring Provider Surgery; Visit Provider Surgery
PROC: (CPT 46080; principal; 2019-03-06 13:15)
DX: K64.4 Residual hemorrhoidal skin tags (principal); K64.8 Other hemorrhoids; K60.1 Chronic anal fissure
CPT/HCPCS: 00902; 46080; 46260; 88304; J7120; J2405

== ENCOUNTER 2019-04-11 10:14 | Day surgery (SDC) | payer OTHER, SELFPAY ==
--- NOTE | 2019-03-02 10:29 | HP_ITS ---
Intake Vital Signs 03/02/19 Body Mass Index (BMI) 33.3 Intake Visit Reasons: Discuss Hemorroidectomy Surgery Chief Complaint: recheck rectum Treasury Director Required: No Is patient in pain?: Yes (rectal pain) Allergies sulfamethoxazole [From Bactrim] Allergy (Unknown, Verified 03/02/19 10:08) Unknown trimethoprim [From Bactrim] Allergy (Unknown, Verified 03/02/19 10:08) Unknown amoxicillin trihydrate [From Augmentin] Allergy (Verified 03/02/19 10:08) Other potassium clavulanate [From Augmentin] Allergy (Verified 03/02/19 10:08) Other codeine Adverse Reaction (Verified 03/02/19 10:08) Vomiting Sulfa (Sulfonamide Antibiotics) Adverse Reaction (Verified 03/02/19 10:08) Mucosal lesions Medications Sertraline HCl [Zoloft] 100 mg PO DAILY 11/30/17 [History Confirmed 03/02/19] albuterol sulfate HFA 90 mcg/actuation aerosol inhaler 2 puff INHALATION Q6H PRN 10/24/18 [History Confirmed 03/02/19] cetirizine 10 mg capsule 10 mg PO DAILY PRN 10/24/18 [History Confirmed 03/02/19] hydrocortisone 2.5 % rectal cream with applicator 1 % TOPICAL PRN PRN 10/24/18 [History Confirmed 03/02/19] zolpidem 5 mg tablet 5 mg PO QHS PRN 10/24/18 [History Confirmed 03/02/19] hydrocortisone 2.5 % topical cream with perineal applicator 1 applic RC QD-BID PRN #30 g 01/06/19 [Rx Confirmed 03/02/19] Omeprazole Magnesium [Prilosec Otc] 20 mg PO DAILY 02/15/19 [History Confirmed 03/02/19] PFSH Medical History Hx of hysterectomy (Acute) Thyroid nodule (Acute) Hemorrhoids (Chronic) Constipation (Acute) Anxiety (Acute) Depression (Acute) Rectal fissure (Acute) Surgical History Hx of bilateral breast reduction surgery (Acute) History of repair of rectocele (Acute) History of tonsillectomy and adenoidectomy (Acute) Family History Mother Heart disease Father Heart disease High cholesterol Social History Smoking Status: Never smoker second hand exposure: No alcohol intake: never substance use type: does not use caffeine: Yes what type of physical activity do you participate in: none frequency: does not exercise HPI HPI HPI: CARLOS MORIN, is a 44 F who presents to the office today for HPI HPI Surgical H&P: Yes HPI: CARLOS MORIN, is a 44 F who presents to the office today for hemorrhoids/anal fissure. Patient states she is still having some blood in the toilet as well as when she is wiping. She also has pain with bowel movements as well as after bowel movements. Patient states the pain is a 5/10 with a bowel movement in 4/10 rest the day. Patient had tried medical management however that has not made much of a difference. Patient's colonoscopy showed a normal colon in internal and external hemorrhoids. Patient would like to proceed with surgery. Patient has been taking fiber gummy supplements as well as stool softeners she has not currently been doing sitz baths. ROS General General: No weight change or fatigue Gastro Gastrointestinal: No abdominal pain, No nausea or vomiting, No diarrhea, Yes blood in stool, Yes acid reflux (controlled with meds), Yes hemorrhoids, No black,tarry stools Exam Const General: cooperative, comfortable, no acute distress Resp Effort & Inspection: normal respiratory effort Cardio Rate: regular rate GI Inspection: non-distended Palpation: soft, no guarding, nontender Other: HAWA: Deferred Neuro General: oriented x3 Cranial Nerves: CN's II-XI intact bilaterally Extrem General: no clubbing, cyanosis or edema Assessment & Plan Problems 1. Anal fissure K60.2 2. BRBPR (bright red blood per rectum) K62.5 3. Hemorrhoids K64.9 Plan Reviewed the procedure: Hemorrhoidectomy, lateral internal sphincterotomy including risks but not limited to bleeding, infection, incontinence, urinary retention, anal stenosis and anesthesia. Discussed patient will only plan to do only 2 of the 3 columns of hemorrhoidal cushion. Discussed with patient this can be a painful procedure and it is important to balance the pain meds and stool softeners/sitz bath's to try to still continue to have soft stools, no constipation or diarrhea as those can make hemorrhoids worse. Patient was agreeable with plan had no further questions this time. Danielle Jackson M.D. Pager: [phone] [facility] [address] [place] [address], [address] [place] [id number] Office: [phone] Plan Detail Follow Up We will schedule surgery Coding Level of Care Code Off vis,est,level 3 Diagnoses Anal fissure K60.2 BRBPR (bright red blood per rectum) K62.5 Hemorrhoids K64.9 03/02/19 1029 <Electronically signed by Danielle Hernandez am, MD> Date _ Danielle Jackson MD I have re-examined the patient. There are no clinical changes since date of exam.
[2019-03-06 12:17] VITALS: BMI 33.2
[2019-04-11 10:30] VITALS: BP 135/70; PULSE 89; RESP 16; TEMP 37.3; O2SAT 100; BMI 32.9
--- NOTE | 2019-04-11 11:50 | HEM_PTH ---
PATIENT: CARLOS MORIN LOC: [facility] [place] U#:[id number] AGE/SX: 44/F ROOM: RE04/11/[address]: Dr. Danielle Jackson MD : 1975 BED: DIS: 04/11/2019 SPEC #: [id number] RECD: 04/11/19 16:38 STATUS: MARCOS REChelsie #: [id number] TREVOR: 04/11/19 11:[address]: Danielle Jackson DEPT: SURGICAL PATHOLOGY RECD BY: Jack June ENTERED: 04/12/19 12:33 SP TYPE: HEMORRHOID OTHR DR: Dr. Sunil Kenney MD Tissues: HEMORRHOIDS Procedures: Surgery Specimen Level III HEADER OPERATION: Hemorrhoidectomy PRE-OP DIAGNOSIS: Hemorrhoids TISSUE SUBMITTED: Hemorrhoids MICROSCOPIC DIAGNOSIS Hemorrhoids, hemorrhoidectomy: Submucosal vascular ectasia and thrombosis consistent with hemorrhoid. AM:ishmael 04/13/19 MICROSCOPIC DESCRIPTION Slides are reviewed. GROSS DESCRIPTION Received in fixative is one container labeled with the patient's name and designated hemorrhoids. The specimen consists of a polypoid piece of benitez mucosal tissue measuring 1.5 x 1 x 0.7 cm. The specimen is bisected and reveals congested cut surfaces. The entire specimen is submitted in one cassette. / SJ:rg 04/12/19 TC:5 [facility]: [id number]
[2019-04-11] MEDS: Bupivacaine Mpf 0.5% 30 ML VIAL (12:25)
[2019-04-11] MEDS: Lubricating Jelly 60 GM Tube 30 GM TOPICAL (12:25)
[2019-04-11] MEDS: BUPIVACAINE LIPOSOME/PF 20 ML VIAL OPERA.SITE (12:30)
[2019-04-11] MEDS: Dibucaine 30 GM Tube 1 APPLIC (12:43)
--- NOTE | 2019-04-11 12:50 | PCM.OPRPT ---
Report of Operation Date of Procedure: 04/11/19 Pre-Operative Diagnosis: Hemorrhoidectomy Post-Operative Diagnosis: Same Surgery/Procedure Performed:: Hemorrhoidectomy paper roll machine operator: Karthik Sanchez Type of Anesthesia:: General/Supplemental Anesthesiologist: Chris Eric Special Medications: none Specimen's removed: hemorrhoid Estimated Blood Loss (mL): < 10 cc Fluids Replaced: 1000 cc Description of Procedure: The patient was brought into the operating room and general anesthesia was induced. She was placed in prone jackknife lithotomy position. A timeout was completed verifying correct patient, procedure, site, mposition, and special equipment prior to beginning the procedure. The buttocks were taped apart. Perineum was prepared prepped and draped in standard sterile fashion. Local anesthesia was injected as a perianal nerve block-0.5% lidocaine one-to-one mixture with Exparel with epi total of 10 mL. Anus carefully dilated. Small Hill-Rodriguez retractor was introduced. She was noted to have mainly an external hemorrhoid at the left lateral/posterior location with separation of the mucosa from the previous hemorrhoidectomy internally to that. 0 Vicryl suture was placed at the base of the pedicle. An elliptical incision was made excising the external hemorrhoid with minimal amount of anoderm. Cautery was used to separate the hemorrhoid from the underlying tissue. Careful not to involve any of the sphincter muscle. The hemorrhoid was sent to pathology. Suture of 2-0 chromic was used to reapproximate the previous area of hemorrhoidectomy to the area the previous external hemorrhoid. Hemostasis was achieved using electrocautery. Following the hemostasis the skin and mucosal incisions were closed with the running locking suture of 2-0 chromic. A Surgifoam with dibucaine was placed in the anus. The rest of the Exparel was used for local anesthesia for a total of 20 cc throughout the case. A gauze pad tucked between the gluteal folds. The patient tolerated procedure well and was extubated and taken to the postanesthesia care unit in stable condition. - Complications none
--- NOTE | 2019-04-11 12:57 | DCINST_ITS ---
Discharge Diet: Light diet - advance as tolerated Discharge Activity: May not drive while taking narcotic pain medications. Lifting Restrictions: No lifting greater than 20 pounds x 4 weeks Call your doctor if your incision/area has: Continuous Slow Oozing, Sudden Increased Bleeding, Increased Pain/ Swelling, Increased Redness, Foul Smelling Discharge, Swelling at the incision site Call your doctor if you observe: Fever of 101 or Higher Remove Dressing in (days):: 1 - Okay to remove the Surgifoam from the rectum if it does not fall out on its own Allergies/Adverse Reactions: Allergies sulfamethoxazole [From Bactrim] Allergy (Unknown, Verified 04/10/19 14:54) Unknown trimethoprim [From Bactrim] Allergy (Unknown, Verified 04/10/19 14:54) Unknown amoxicillin trihydrate [From Augmentin] Allergy (Verified 04/10/19 14:54) Other potassium clavulanate [From Augmentin] Allergy (Verified 04/10/19 14:54) Other codeine Adverse Reaction (Verified 04/10/19 14:54) Vomiting Sulfa (Sulfonamide Antibiotics) Adverse Reaction (Verified 04/10/19 14:54) Mucosal lesions Medications to take at Discharge Sertraline HCl [Zoloft] 100 mg PO DAILY 11/30/17 albuterol sulfate HFA 90 mcg/actuation aerosol inhaler 2 puff INHALATION Q6H PRN 10/24/18 cetirizine 10 mg capsule 10 mg PO DAILY PRN 10/24/18 hydrocortisone 2.5 % rectal cream with applicator 1 % TOPICAL PRN PRN 10/24/18 zolpidem 5 mg tablet 5 mg PO QHS PRN 10/24/18 Omeprazole Magnesium [Prilosec Otc] 20 mg PO DAILY 02/15/19 hydrocortisone 2.5 % topical cream with perineal applicator 1 applic TOPICAL BID-TID PRN #30 g 03/24/19 Oxycodone HCl/Acetaminophen [Percocet 5/325] 1 - 2 tab PO Q6H PRN PRN 6 Days #40 tab 04/11/19 The following prescriptions were given: Oxycodone HCl/Acetaminophen [Percocet 5/325] 1 - 2 tab PO Q6H PRN PRN 6 Days #40 tab PRN Reason: Pain Transmission Status: Received by [facility] Primary Care Physician: Sunil Kenney MD [Primary Care Provider] - Test Results: Test results from this visit will be discussed in further detail at your follow- up appointment, if applicable. Please Follow Up With: Danielle Jackson MD - At 5 PM and on the weekends call [phone] with any concerns When: Follow-up in office in 2 to 3 weeks. Proposed Discharge Date: 04/11/19
[2019-04-11 13:09] VITALS: BP 117/61; BP 135/71; PULSE 88; RESP 14; TEMP 36.2; O2SAT 94
[2019-04-11 13:16] VITALS: BP 109/62; BP 135/71; PULSE 85; RESP 14; O2SAT 94
[2019-04-11 13:29] VITALS: BP 116/66; BP 135/71; PULSE 83; RESP 14; O2SAT 100
[2019-04-11 13:35] VITALS: BP 115/65; BP 135/71; PULSE 88; RESP 16; TEMP 36.2; O2SAT 92
[2019-04-11 14:31] VITALS: BP 125/61; BP 135/71; PULSE 93; RESP 16; TEMP 36.6; O2SAT 99
== END 2019-04-11 14:39 | disposition home or self-care (01) ==
LOC: SDC 10:16 → AC 10:16
PROVIDERS: Family Provider Family Medicine; PCP Family Medicine; Referring Provider Surgery; Visit Provider Surgery
PROC: (CPT 46999; principal; 2019-04-11 11:35)
DX: K64.5 Perianal venous thrombosis (principal); F41.9 Anxiety disorder, unspecified; F32.9 Major depressive disorder, single episode, unspecified; K21.9 Gastro-esophageal reflux disease without esophagitis; J45.909 Unspecified asthma, uncomplicated; Z79.51 Long term (current) use of inhaled steroids; Z79.899 Other long term (current) drug therapy
CPT/HCPCS: 46999; 88304; J7120; J2405

== ENCOUNTER → 2020-04-01 13:52 | Outpatient (CLI) | payer OTHER, SELFPAY ==
[2019-04-27 13:15] VITALS: BMI 32.9
--- NOTE | 2020-04-01 13:55 | RAD_ITS ---
STUDY: X-RAY - LUMBAR SPINE REASON FOR EXAM: Female, 45 years old. lumbago with sciatica right side TECHNIQUE: 4 view(s) of the lumbar spine were obtained. COMPARISON: None FINDINGS: Normal lumbar lordosis. There is no substantial scoliosis. There is a normal alignment of the vertebrae. Normal vertebral bodies and endplates. Normal disc space heights. Fallopian tube clips. Pelvic sutures. RAD/L/S Spine Min 4 Views IMPRESSION: Normal x-ray examination of the lumbar spine. Electronically Signed: David Damian MD at 23:56 EDT Tel , Service support ,
== END ==
PROVIDERS: PCP Family Medicine; Referring Provider Family Medicine; Visit Provider Family Medicine
DX: M54.41 Lumbago with sciatica, right side (principal)
CPT/HCPCS: 72110

== ENCOUNTER → 2020-04-08 14:56 | Outpatient (CLI) | payer OTHER, SELFPAY ==
[2019-04-27 13:15] VITALS: BMI 32.9
--- NOTE | 2020-04-08 14:59 | BI_ITS ---
MAMMOGRAPHY - BILATERAL SCREENING REASON FOR EXAM: Female, 45 years old. Routine annual screening examination. PERTINENT HISTORY: Non-contributory. History of prior bilateral breast reduction surgery and lift. TECHNIQUE: Digital bilateral breast ivory (3D mammographic acquisition) in the CC and MLO projections. 2-D mediolateral oblique (MLO) and craniocaudad (CC) views of both breasts were obtained. CAD: Full Field Digital Mammography with Computer Added Detection was performed. COMPARISON: None. Baseline examination. FINDINGS: Breast Composition: The breasts are heterogeneously dense, which may obscure small masses. There are no dominant masses or suspicious calcifications. No other significant abnormalities are identified. BI/SCREEN MAMM (CAD) W/IVORY BILAT IMPRESSION: Negative screening mammogram. Yearly followup mammogram recommended. (A) ASSESSMENT CATEGORY: BIRADS Category 1: Negative. A letter regarding these results will be sent to the patient by the facility within 30 days. Approximately 10% of breast cancers are not detected by mammography. A normal mammogram should not delay biopsy of a clinically suspicious abnormality. [id number] Electronically Signed: Tristan Pollock, at 8:08 EDT , Service support ,
== END ==
PROVIDERS: PCP Family Medicine; Referring Provider Family Medicine; Visit Provider Family Medicine
DX: Z12.31 Encounter for screening mammogram for malignant neoplasm of breast (principal)
CPT/HCPCS: 77063; 77067

== ENCOUNTER → 2020-05-10 12:37 | Outpatient (CLI) | payer OTHER, SELFPAY ==
[2019-04-27 13:15] VITALS: BMI 32.9
--- NOTE | 2020-05-10 13:00 | MRI_ITS ---
STUDY: MRI LUMBAR SPINE WITHOUT CONTRAST REASON FOR EXAM: Female, 45 years old. Back pain into R leg TECHNIQUE: Standardized fat and water weighted pulse sequences were obtained in the sagittal and axial planes. COMPARISON: X-ray 04/01/2020 FINDINGS: T12-L1: Normal endplates. Normal disc height, hydration and morphology. Normal bilateral facet joints. Normal central canal and bilateral lateral recesses. Normal bilateral intervertebral neural foramina. Normal lumbar lordosis. There is no substantial scoliosis. Normal conus medullaris that terminates at the T12/L1. L1-2: Normal endplates. Normal disc height, hydration and morphology. Normal bilateral facet joints. Normal central canal and bilateral lateral recesses. Normal bilateral intervertebral neural foramina. L2-3: Mild disc desiccation but no disc protrusion, spinal stenosis, or neural foraminal stenosis. L3-4: Normal endplates. Normal disc height, hydration and morphology. Normal bilateral facet joints. Normal central canal and bilateral lateral recesses. Normal bilateral intervertebral neural foramina. L4-5: Mild broad disc protrusion produces mild spinal stenosis and mild bilateral neural foraminal stenosis. L5-S1: Normal endplates. Normal disc height, hydration and morphology. Normal bilateral facet joints. Normal central canal and bilateral lateral recesses. Normal bilateral intervertebral neural foramina. Normal visualized sacral ala. Normal visualized paraspinous soft tissue structures. MRI/Spine Lumbar (Routine) IMPRESSION: Multilevel degenerative changes, as described above. Electronically Signed: Isai Nichole MD at 14:06 EDT Tel , Service support ,
== END ==
PROVIDERS: PCP Family Medicine; Referring Provider Family Medicine; Visit Provider Family Medicine
DX: M54.9 Dorsalgia, unspecified (principal)
CPT/HCPCS: 72148

== ENCOUNTER → 2020-06-26 | Outpatient (CLI) | payer OTHER, SELFPAY ==
[2019-04-27 13:15] VITALS: BMI 32.9
--- NOTE | 2020-06-26 13:43 | US_ITS ---
STUDY: THYROID ULTRASOUND REASON FOR EXAM: Female, 45 years old. NODULES TECHNIQUE: Ultrasound evaluation of the thyroid was performed with real-time and static black-scale imaging. COMPARISON: Prior thyroid ultrasound of 01/14/2016 FINDINGS: RIGHT LOBE: The right lobe of the thyroid gland measures 5.7 x 1.5 x 1.7 cm. There is a heterogeneous echotexture. There are multiple nodules present throughout the right thyroid. The largest nodule is 1.7 x 1.3 x 0.7 cm, hypoechoic, ovoid and wider than tall with marked internodular vascularity. LEFT LOBE: The left lobe of the thyroid gland measures 5.3 x 1.6 x 1.8 cm. There is a heterogeneous echotexture. Numerous subcentimeter complex nodules consistent with choroid cysts. ISTHMUS: The isthmus measures 0.3 centimeter. US/Thyroid IMPRESSION: No substantial change in size or appearance of the thyroid. Numerous nodules bilaterally and generally heterogeneous parenchyma. The dominant follicle of the right thyroid is not substantially changed in appearance and is slightly smaller than on the prior exam. Electronically Signed: Marita Padgett MD at 18:25 EDT , Service support ,
== END | disposition home or self-care (01) ==
LOC: US 13:42
PROVIDERS: PCP Family Medicine; Referring Provider Family Medicine; Visit Provider Family Medicine
DX: E04.1 Nontoxic single thyroid nodule (principal)
CPT/HCPCS: 76536

== ENCOUNTER 2020-07-18 12:00 | Outpatient (RCR) | payer OTHER, SELFPAY ==
[2019-04-27 13:15] VITALS: BMI 32.9
--- NOTE | 2020-04-05 10:24 | HP.PTEVAL ---
Patient's Visit Information CARLOS MORIN is a 45 year old F referred to Physical Therapy by Dr. Felix Ovalle MD with a diagnosis of LOW BACK PAIN. Date of Evaluation: 04/05/20 Physical Therapist: Adali Garcia, PT, Cert MDT - Visit Plan Frequency: 2-3x /Week Duration: 4-6 Weeks Plan: US, IF-ESTIM WITH MH OR CP, POSTURE CORRECTION/STRENGTHENING, INSTRUCTION IN APPROPRIATE BODY MECHANICS AND ACTIVITY MODIFICATIONS. DLS STARTING WITH A NEUTRAL SPINE PROGRESSING ROM TOLERATED. ERASMO LE ROM, STRETCHING AND STRENGTHENING. HEP INSTRUCTION. - Subjective Work/Leisure: [employer]. ONLY MISSED 2 DAYS OF WORK. WORKING NOW. Disability: NO. Present symptoms: RIGHT LOW BACK PAIN, RIGHT THIGH, LEG, FOOT AND TOES. ALSO HAS NUMBESS AND TINGLING IN THE LEG. NO LLE SX'S. Present since: ABOUT A MONTH AGO. Pain Scale: WORST 7/10, LEAST 2/10. Currently: 4/10. Commenced as a result of: HELPIING LOAD A GRILL IN THE CAR AND TWISTED WHILE PULLING. Symptoms at onset: LOW BACK. Worse: SITTING, AT WORK AND AFTER WORK, REPETATIVE MOTIONS LIKE VACUMING, BENDING, LIFTING, TWISTING. Better: ICE, MOTRIN, TYLONOL, NEUROTIN. Disturbed sleep: YES. Previous history/Previous treatment: H/O INTERMITTENT MILD LOW BACK PAIN SELF TREATED. Treatment this episode: NEUROTIN - CURRENT, 2 ROUNDS OF STEROID - DONE, MUSCLE RELAXER - DONE. Coughing/sneezing/straining: NEGATIVE. Gait: DIFFICULTY INITIATING GAIT AFTER SITTING. Difficulty initiating urinatin: NO. Accidents: NO. Unexplained weight loss: NO. Imaging: LUMBAR X-RAY - NORMAL PER PATIENT REPORT AND [employer] EMR. PMH: DEPRESSION. H/O NECK PROBLEMS TREATED WITH PT. Recent major surgery: HYSTERECTOMY - Objective Sitting/Standing Posture: POOR. Lordosis: NORMAL. Lateral shift: NO. Relevant shift: N/A. Active Correction of posture: BETTER ACTIVELY AND PASSIVELY WITH LUMBAR SUPPORT. Other Observations: INDEP GAIT INTO PT. DIFFICULTY TRANSITIONING FROM SIT TO STAND AND INITIATING GAIT AFTER SITTING. LOOKS UNCOMFORTABLE SITTING. SIFTS WEIGHT TO LEFT BUTTOCK. Motor deficit: ERASMO LE'S GROSSLY 5/5 WITH MMT'ING EXCEPT RIGHT HIP 4/5. Sensory deficit: ERASMO LE LIGHT TOUCH SENSATION INTACT AND SYMMETRICAL. ROM deficit: ERASMO LE'S WFL. Reflexes: 2/3 ERASMO LE'S. Dural Signs: POSITIVE RIGHT LE. Lumbar mvmt loss: flex - MOD. ext - MOD. R SG - MOD. L SG - GIGI. PATIENT WITH INCREASED LB DISCOMFORT/TIGHTNESS AT THE END OF THE AVAILABLE ROM ALL PLANES. Core strength: POOR. Palpation: TENDERNESS WITH PALPATION OF THE LOWER LUMBAR SPINE AND RIGHT PARASPINAL REGIONS. TREATMENT: NEUROMUSCULAR REEDUCATION - RETRAINING OF MVMT AND POSTURE FOR SITTING, LYING AND STANDING ACTIVITIES. - Goals Goal 1:: DECREASE C/O LOW BACK AND RIGHT LE SXS'. Goal Time Frame: 4-6 Weeks Goal 2:: IMPROVE PERSONAL CARE, LIFTING, SITTING, STANDING, SLEEP, RECREATIONAL AND WORK FUNCTION Goal Time Frame: 4-6 Weeks Goal 3:: INSTRUCT IN PROPHYLAXIS Goal Time Frame: 4-6 Weeks - Anticipated Interventions Patient/Client Instruction: Educate patient on: Condition, Plan of Care, Risk Factors, Benefits of Fitness Program For the Purpose of:: To improve self management Therapeutic Exercise to Include: Strength training, Body mechanics, Postural training, Flexibilty training, Neuromotor development, Dynamic Lumbar Stabilization For the Purpose of:: To decrease pain, To improve muscle performance and motor function, To increase tolerance to activity/condition/position, To improve ability of physical actions for home/community/work/leisure TENS: Yes IF ES: Yes Cryotherapy (ice pack, ice massage): Yes Thermo therapy (hot pack): Yes Ultrasound (thermal/non thermal): Yes For the Purpose of:: To decrease pain, To improve nutrient delivery to tissue Thank you for the opportunity to evaluate your patient. For Medicare and Medicare HMO plans, please review the plan of care and approve it. It will need to be FAXED BACK to us at [phone] for Medicare purposes. For Medicare only, by signing this I certify the plan of care. Please let me know if there are questions or concerns regarding this plan of care. Physician Signature: Date:
--- NOTE | 2020-04-17 13:04 | HP.PTREVAL_ITS ---
Dr. Felix Ovalle MD, It has been my pleasure to treat CARLOS MORIN over the last 6 visits for LOW BACK PAIN. Please see the progress note below for an update on the physical therapy plan of care! Subjective: PATIENT REPORTS HER BACK IS FEELING A LITTLE BETTER BUT LEG IS NOT BETTER. FEELING SOME PIN PRICKS ON THE OUTSIDE OF THE RIGHT LEG AND ON THE TOP OF THE RIGHT FOOT. HAD SX'S IN TOES INTITIALLY BUT THAT HAD GONE AWAY. NO WORSE WITH EX'S. RIGHT LEG AND FOOT SX'S CAME ON IN SITTING. PATIENT REPORTS SHE IS FRUSTRATED WITH THE PAIN AND WANTS TO SEE THE DOCTOR AGAIN. SHE REPORTS THAT WHEN SHE GOT HOME FROM WORK YESTERDAY SHE TOLD HER THAT HER LEG HURT SO BAD SHE WANTED TO CUT IT OFF. Objective/Function: PATIENT CONTINUES TO HAVE LIMITED LUMBAR MOBILITY AND POSITIVE RIGHT LE DURAL SIGN. REDUCED SX' AFTER THERAPY AGAIN TODAY THOUGH. RIGHT ANKLE IS STILL STRONG. HAVING FOOT SX'S (TINGLING ON THE TOP OF THE FOOT) AGAIN. PATIENTS GAIT AND TRANSFERS ARE VERY GUARDED. Plan Plan: US, IF-ESTIM WITH MH OR CP, POSTURE CORRECTION/STRENGTHENING, INSTRUCTION IN APPROPRIATE BODY MECHANICS AND ACTIVITY MODIFICATIONS. DLS STARTING WITH A NEUTRAL SPINE PROGRESSING ROM TOLERATED. ERASMO LE ROM, STRETCHING AND STRENGTHENING. HEP INSTRUCTION. Goals Goal 1:: DECREASE C/O LOW BACK AND RIGHT LE SXS'. Goal Time Frame: 4-6 Weeks Goal Progress: Not Progressing Goal 2:: IMPROVE PERSONAL CARE, LIFTING, SITTING, STANDING, SLEEP, RECREATIONAL AND WORK FUNCTION Goal Time Frame: 4-6 Weeks Goal Progress: Not Progressing Goal 3:: INSTRUCT IN PROPHYLAXIS Goal Time Frame: 4-6 Weeks Goal Progress: Not Progressing Anticipated Interventions Patient/Client Instruction: Educate patient on: Condition, Plan of Care, Risk Factors, Benefits of Fitness Program For the Purpose of:: To improve self management Therapeutic Exercise to Include: Strength training, Body mechanics, Postural training, Flexibilty training, Neuromotor development, Dynamic Lumbar Stabilization For the Purpose of:: To decrease pain, To improve muscle performance and motor function, To increase tolerance to activity/condition/position, To improve gustabo lity of physical actions for home/community/work/leisure TENS: Yes IF ES: Yes Cryotherapy (ice pack, ice massage): Yes Thermo therapy (hot pack): Yes Ultrasound (thermal/non thermal): Yes For the Purpose of:: To decrease pain, To improve nutrient delivery to tissue Please do not hesitate to contact me at [phone] by phone or if you have questions or concerns regarding this new plan of care! Sincerely, Adali Garcia, PT, Cert MDT
--- NOTE | 2020-06-28 10:36 | HP.PTREVAL_ITS ---
Dr. Felix Elena MD, It has been my pleasure to treat CARLOS MORIN over the last 15 visits for LOW BACK PAIN. Please see the progress note below for an update on the physical therapy plan of care! Subjective: PATIENT REPORTS SHE HAD AN INJECTION WITH DR. GREENBERG LAST WEDNESDAY AND IT ACTUALLY DID HELP. SHE REPORTS HER LOW BACK IS FEELING BETTER. SHE REPORTS HER LEG IS STILL BOTHERING HER A LOT AND SHE HAS WEAKNESS IN HER RIGHT LEG. STATES FEELING A LOT OF NUMBNESS, WEAKNESS AND SOME PAIN IN THE RIGHT THIGH AND CALF. STATES SHE NOTIFIED DR. GREENBERG'S OFFICE ABOUT HER RIGHT LE NUMBESS AND HE WANTED TO SEE HER. SHE REPORTS SHE FOLLOWED UP WITH DR. GREENBERG WEDNESDAY AND HE TOLD HER HER MRI DOESN'T LOOK THAT BAD SO ORDERED A NERVE CONDUCTION TEST. SAW DR. ELENA YESTERDAY OUT OF FRUSTRATION. STATES DR. ELENA IS GOING TO GET IN TOUCH WITH DR. GREENBERG AND SEE IF THE INJECTION CAUSED SOME OF THE NUMBNESS AND FIND OUT WHEN THE NCT WOULD BE. PATIENT IS SUPPOSED TO CONTACT DR. ELENA IF THE NUMBNESS GETS WORSE BUT STATES HE DID NOT RECOMMEND SHE SEE ANOTHER SPECIALIST YET. STATES THEY DISCUSSED A CONSULT WITH DR LENNON THOUGH POSSIBLY IN THE FUTURE. STILL WORKING. WORKED WEDNESDAY BUT A LOT OF PAIN IN THE LEG AFTER. SCHEDULED FOR THIS . PATIENT IS QUESTIONING WHY SHE IS HAVING RIGHT LE WEAKNESS NOW BECAUSE SHE IS WORKING AND DOING PT NOT JUST LYING AROUND. PATIENT REPORTS THAT THE MORE EX SHE DOES THE WORSE IT SEEMS TO FLARE HER UP. STATES SHE HAS NOT BEEN DOING HOME EX'S BECAUSE OF THAT. PATIENT IS REQUESTING LAND VS AQUATIC THERAPY IF FURTHER THERAPY IS RECOMMENDED. Objective/Function: PATIENT WAS SEEN TODAY FOR RE-ASSESSMENT OF PROGRESS TOWARD THE SET PT GOALS AND THE NEED FOR FURTHER PHYSICAL THERAPY VS READINESS FOR DISCHARGE. WITH TESTING OBJECTIVELY AND WITH SUBJECTIVE REPORTS PATIENT SHOWS IMPROVEMENT SINCE STARTING PT BUT REPORTS OF RIGHT LE SX'S (PAIN, NUMBNESS WEAKNESS) ARE OF CONCERN. SHE REPORTS 50% IMPROVEMENT OVER ALL AND HER BACK PAIN IS BETTER AND BACK FEELS LOOSER BUT SHE IS NOT REPORTING IMPROVENT IN HER RIGHT LE SX'S AND HER OSWESTRY SCORE HAS NOT IMPROVED. PATIENT IS ADDRESSING HER RIGHT LE SX'S WITH THE DOCTORS AND COMMUNICATES A GOOD UNDERSTANDING OF TRYING TO AVOID INCREASING RIGHT LE SX'S WITH PT. THIS PT RECOMMENDS CONTINUING PT BASED ON OBJECTIVE TESTING IMPROVEMENTS SEEN AND ROOM FOR FUTHER IMPROVEMENT WITH TRIAL BACK TO LAND PT. UPON EXAM TODAY: INDEP GAIT INTO PT. INDEP TRANSFER SIT TO STAND WITHOUT UE ASSIST AND LESS DIFFICULTY INITIATING GAIT A FTER SITTING COMPARED TO INITIAL EVAL. APPEARS TO TOLERATE SITTING IN THE CLINIC BETTER NOW COMPARED TO INITIAL EVAL WELL. TRANSFERS OFF AND ON TREATMENT TABLE ARE STILL GUARDED. Motor deficit: ERASMO LE'S GROSSLY 5/5 WITH MMT'ING. Sensory deficit: DECREASED RIGHT THIGH LIGHT TOUCH SENSATION REPORTED COMPARED TO LEFT WITH TESTING. ROM deficit: ERASMO LE'S WFL. Reflexes: 2/3 ERASMO LE'S. Dural Signs: NEGATIVE ERASMO LE'S. Lumbar mvmt loss: flex - MIN. ext - MOD. R SG - MOD. L SG - MOD. ROM TESTING DOES NOT APPEAR TO HAVE AN EFFECT ON PAIN TODAY. Core strength: POOR. Palpation: PATIENT STILL WITH TENDERNESS WITH PALPATION OF RIGHT LUMBAR PARASPINAL REGION. Plan Plan: MONITOR RIGHT LE PAIN, NUMBNESS AND WEAKNESS. CONTINUE PT TRANSITIONING BACK TO LAND 3X'S A WK X 3 WKS FOR PAIN RELEIF (US), POSTURE CORRECTION/STRENGTHENING, INSTRUCTION IN APPROPRIATE BODY MECHANICS AND ACTIVITY MODIFICATIONS. DLS TOLERATED. TRUNK ROM TOLERATED. ERASMO LE ROM, STRETCHING AND STRENGTHENING. FURTHER WRITTEN HEP. PATIENT IS AGREEABLE. Goals Goal 1:: DECREASE C/O LOW BACK AND RIGHT LE SXS'. Goal Time Frame: 4-6 Weeks Goal Progress: Not Progressing Goal 2:: IMPROVE PERSONAL CARE, LIFTING, SITTING, STANDING, SLEEP, RECREATIONAL AND WORK FUNCTION Goal Time Frame: 4-6 Weeks Goal Progress: Not Progressing Goal 3:: INSTRUCT IN PROPHYLAXIS Goal Time Frame: 4-6 Weeks Goal Progress: Not Progressing Anticipated Interventions Patient/Client Instruction: Educate patient on: Condition, Plan of Care, Risk Factors, Benefits of Fitness Program For the Purpose of:: To improve self management Therapeutic Exercise to Include: Strength training, Body mechanics, Postural training, Flexibilty training, Neuromotor development, Dynamic Lumbar Stabilization For the Purpose of:: To decrease pain, To improve muscle performance and motor function, To increase tolerance to activity/condition/position, To improve ability of physical actions for home/community/work/leisure TENS: Yes IF ES: Yes Cryotherapy (ice pack, ice massage): Yes Thermo therapy (hot pack): Yes Ultrasound (thermal/non thermal): Yes For the Purpose of:: To decrease pain, To improve nutrient delivery to tissue Please do not hesitate to contact me at [phone] by phone or Fax: if you have questions or concerns regarding this new plan of care! Sincerely, Adali Garcia, PT, Cert MDT
--- NOTE | 2020-08-27 13:11 | HP.PTDCSUM ---
It has been my pleasure to treat CARLOS MORIN referred by Dr. Felix Ovalle MD, with the diagnosis of LOW BACK PAIN for a total of 19 visit(s). Discharge Date: Please see the following information for a summary of their discharge status. Subjective: PATIENT REPORTS SHE SEEMED TO HAVE DONE OK WITH HER LAST TWO PT SESSION BUT SHE WORKED OVER THE WEEKEND AND HAS HAD EVEN MORE LEG PAIN SINCE. STATES THE EX'S DIDN'T MAKE HER WORSE BUT DIDN'T SEEM TO HELP EITHER. BACK IS STARTING TO GET SORE AGAIN TOO. ANA'T WITH DR. LENNON ON WEDNESDAY. STILL WAITING FOR NCT - SCHEDULED FOR END OF SEP 2020 BUT RECENTLY MOVED UP TO AUG 05 2020. STILL FEELING WEAKNESS IN THE LEG SINCE RADHIKA AND BACK PAIN IS BACK TO WHERE IT WAS BEFORE THE SHOT. BACK Pain Intensity (Out of 10): 3 RIGHT LE Pain Intensity (Out of 10): 5 FOOT Pain Intensity (Out of 10): 3 % Improvement: 50 Objective/Function: PATIENT IS NOT IMPROVING FUNCTIONALLY AND IS REPORTING INCREASING PAIN LEVELS. SPINE CONSULT PENDING WEDNESDAY. WILL HOLD UNTIL AFTER CONSULT. Goal 1:: DECREASE C/O LOW BACK AND RIGHT LE SXS'. Goal Progress: Not Progressing Goal 2:: IMPROVE PERSONAL CARE, LIFTING, SITTING, STANDING, SLEEP, RECREATIONAL AND WORK FUNCTION Goal Progress: Not Progressing Goal 3:: INSTRUCT IN PROPHYLAXIS Goal Progress: Not Progressing Plan: HOLD PT UNTIL SPINE CONSULT WEDNESDAY MORNING. PATIENT TO CALL IF SURGEON RECOMMENDS STOPPING PT. If there are questions or concerns regarding this patient's physical therapy, please feel free to call me at [phone]. Thank you for the referral of this patient. Sincerely, Adali Garcia, PT, Cert MDT
--- NOTE | 2020-08-27 13:14 | HP.PT.NRP ---
CARLOS MORIN was seen in my office for initial evaluation on 04/05/20. The following Plan of Care was established for this patient: Initial Frequency: 2-3x /Week Initial Duration: 4-6 Weeks Patient/Client Instruction: Educate patient on: Condition, Plan of Care, Risk Factors, Benefits of Fitness Program For the Purpose of:: To improve self management Therapeutic Exercise to Include: Strength training, Body mechanics, Postural training, Flexibilty training, Neuromotor development, Dynamic Lumbar Stabilization For the Purpose of:: To decrease pain, To improve muscle performance and motor function, To increase tolerance to activity/condition/position, To improve ability of physical actions for home/community/work/leisure TENS: Yes IF ES: Yes Cryotherapy (ice pack, ice massage): Yes Thermo therapy (hot pack): Yes Ultrasound (thermal/non thermal): Yes For the Purpose of:: To decrease pain, To improve nutrient delivery to tissue This patient was last seen in our office 07/18/20. Pertinent comments regarding their Physical therapy will appear below: This patient has not returned to Physical Therapy and is appropriate to return to MD for further follow-up as needed. At this point I will be discontinuing this patient from physical therapy. I would be happy to see this patient again in the future if found appropriate by the physician. Thank you! Adali Garcia, PT, Cert MDT
== END 2020-07-18 19:00 | disposition home or self-care (01) ==
LOC: PT 12:00
PROVIDERS: PCP Family Medicine; Visit Provider Family Medicine
DX: M54.41 Lumbago with sciatica, right side (principal)
CPT/HCPCS: 97014; 97035; 97110; 97112; 97113; 97162; 97164; 97530; G0283

== ENCOUNTER → 2020-07-29 10:12 | Outpatient (CLI) | payer OTHER, SELFPAY ==
[2020-07-22 08:14] VITALS: BMI 33.3
--- NOTE | 2020-07-29 10:13 | MRI_ITS ---
STUDY: MRI LUMBAR SPINE WITHOUT CONTRAST REASON FOR EXAM: Female, 45 years old. increasing pain back and rt leg x 5 months TECHNIQUE: Standardized fat and water weighted pulse sequences were obtained in the sagittal and axial planes. COMPARISON: 05/10/2020 FINDINGS: T12-L1: Normal endplates. Normal disc height, hydration and morphology. Normal bilateral facet joints. Normal central canal and bilateral lateral recesses. Normal bilateral intervertebral neural foramina. Normal lumbar lordosis. There is no substantial scoliosis. Normal conus medullaris that terminates at the T12/L1. L1-2: Normal endplates. Normal disc height, hydration and morphology. Normal bilateral facet joints. Normal central canal and bilateral lateral recesses. Normal bilateral intervertebral neural foramina. L2-3: Mild disc desiccation but no disc protrusion, spinal stenosis, or neural foraminal stenosis. L3-4: Normal endplates. Normal disc height, hydration and morphology. Normal bilateral facet joints. Normal central canal and bilateral lateral recesses. Normal bilateral intervertebral neural foramina. L4-5: No change in the mild broad disc protrusion which produces mild spinal stenosis and mild bilateral neural foraminal stenosis. L5-S1: Normal endplates. Normal disc height, hydration and morphology. Normal bilateral facet joints. Normal central canal and bilateral lateral recesses. Normal bilateral intervertebral neural foramina. Normal visualized sacral ala. Normal visualized paraspinous soft tissue structures. MRI/Spine Lumbar (Routine) IMPRESSION: No change from 05/10/2020. Electronically Signed: Isai Nichole MD at 12:35 EST Tel , Service support ,
== END ==
PROVIDERS: PCP Family Medicine; Referring Provider Orthopaedic Surgery; Visit Provider Orthopaedic Surgery
DX: M54.5 Low back pain (principal); M54.16 Radiculopathy, lumbar region
CPT/HCPCS: 72148

== ENCOUNTER → 2020-08-05 11:56 | Outpatient (CLI) | payer OTHER, SELFPAY ==
[2019-04-27 13:15] VITALS: BMI 32.9
[2020-07-22 08:14] VITALS: BMI 33.3
--- NOTE | 2020-08-05 13:29 | NEURO_ITS ---
NCS and/or EMG Patient Report Ordering Doctor: Shahnaz Mckeon DATE OF SERVICE: 08/05/20 Indication: The patient reports a back injury in February 2020 while twisting to unload her car. Since that time she has experienced burning pain which will radiate down the right lower extremity. Evaluate for lumbosacral radiculopathy. Findings: Nerve conduction studies were performed in the right and left lower extremity. The right peroneal motor study recording the extensor digitorum brevis showed a normal amplitude, normal distal latency and normal conduction velocity. No conduction block or focal slowing was present across the fibular neck. The right tibial motor study recording the abductor hallucis brevis showed a normal amplitude, normal distal latency and normal conduction velocity. Right sural sensory response showed a normal amplitude and conduction velocity. Right superficial peroneal sensory response showed a normal amplitude and conduction velocity. The left peroneal motor study recording the extensor digitorum brevis showed a normal amplitude, normal distal latency and normal conduction velocity. No c onduction block or focal slowing was present across the fibular neck. The left tibial motor study recording the abductor hallucis brevis showed a normal amplitude, normal distal latency and normal conduction velocity. Left sural sensory response showed a normal amplitude and conduction velocity. Left superficial peroneal sensory response showed a normal amplitude and conduction velocity. Needle EMG of the right lower extremity and lumbar paraspinal muscles was performed. No denervation was present in any muscle. All motor unit morphology, activation and recruitment patterns were normal. Impression: This is a normal study. There is no electrophysiologic evidence of lumbosacral radiculopathy, plexopathy, or peripheral neuropathy in the right lower extremity. Please note: the electrodiagnosis of radiculopathy is made on the basis of excluding peripheral nerve lesions on nerve conduction studies and the needle EMG demonstrating denervation and/or reinnervation in the distribution of one or more nerve roots (i.e., acute and/or chronic axonal loss). Thus, electrodiagnostic studies are insensitive in detecting radiculopathy in the absence of axonal loss (e.g., in the setting of compression resulting in intermittent ischemia or mechanical deformation; or demyelination without axonal loss). Thus, clinical correlation is required in the interpretation of this negative electrodiagnostic study for radiculopathy. Xavier Cooper D.O.
== END ==
PROVIDERS: PCP Family Medicine; Referring Provider Anesthesiology Pain Medicine; Visit Provider Anesthesiology Pain Medicine
DX: R20.2 Paresthesia of skin (principal)
CPT/HCPCS: 95886; 95910

== ENCOUNTER 2020-08-29 13:00 | Outpatient (RCR) | payer OTHER, SELFPAY ==
--- NOTE | 2020-08-08 17:17 | HP.PTEVAL ---
Patient's Visit Information CARLOS MORIN is a 45 year old F referred to Physical Therapy by Dr. Carlos Rodriguez DO with a diagnosis of R piriformis syndrome. Date of Evaluation: 08/08/20 Physical Therapist: CLARISA SparksT, OCS, CSCS - Visit Plan Frequency: 2-3x /Week Duration: 4-6 Weeks Plan: 2-3x/week for 2-4 weeks... DTR to R piriformis, stretch R piri, ITB and HS, US thermal to R pirformis, strengthen hip stabs R. - Subjective Hurting since early February after turning adn putting stuff in car. Back got better but leg still hurts. R buttock down laterally to ankle at times. Had MRI and does have ruptured disc on L but symptoms are on R. Had injections from [facility] which helped briefly then pain returned(L5 injections). Had water and land therapy prior to ortho and did a lot of table exercises and strength. Had US to LB and ES. Sleep is not great because of this pain. Pain is 5/10 most days. Worse tranistioning to stad[place] and sitting too long. 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 Basic aDLs are OK, just slow. Hobbies 3 kids 17,15, 12. no time for hobbies. - Pain R buttock and leg Pain Intensity (Out of 10): 4 Pain Intensity Range: 5, 7 - Objective Waalks with slight R antralgia lacking ext at end stance on R.Transfers from adn to sit I. Transfers on table slow and painful until she gets where she is going. LB ext mod limited adn slight painful R. B SB min limited, flexion slow but full. R piriformis tight only compared to L and painful at end range stretch. ITB slightly tight r vs L. HS min tight and increase pain to stretch R. reflexes 2/3 patella and achilles. Sensation WNL to gross light touch LE. Strefngth LE 4/5 without myotomal abnormalities. repeated ext, L SGIS NE on symptoms nor do PA mobs. Max tender R piriformis which is not tender on L side. - Goals Goal 1:: patient pain in R LE 2/10 at worst and 70% better. Goal Time Frame: 4-6 Weeks Goal 2:: Pt I in appropriate HEP to limit future problems. Goal Time Frame: 4-6 Weeks Goal 3:: LEFS score 60/80 Goal Time Frame: 4-6 Weeks Goal 4:: transition in bed without pain. Goal Time Frame: 4-6 Weeks - Rehabilitation Potential Physical Therapy Diagnosis: R piriformis syndrome. Rehabilitation Potential: Fair - Anticipated Interventions Patient/Client Instruction: Educate patient on: Condition, Plan of Care For the Purpose of:: To decrease pain, To improve muscle performance and motor function, To increase tolerance to activity/condition/position, To improve ability of physical actions for home/community/work/leisure, To improve gait and locomotor functions Therapeutic Exercise to Include: Strength training, Flexibilty training, Gait and locomotor training, Passive ROM, Active ROM For the Purpose of:: To decrease pain, To improve muscle performance and motor function Manual Therapy Techniques to Include: Trigger point massage, Mobilization, Passive ROM, Soft tissue mobilization For the Purpose of:: To decrease pain, To increase ROM, To improve muscle performance and motor function, To improve ability of physical actions for home/community/work/leisure Cryotherapy (ice pack, ice massage): Yes Ultrasound (thermal/non thermal): Yes - therml For the Purpose of:: To decrease pain Thank you for the opportunity to evaluate your patient. For Medicare and Medicare HMO plans, please review the plan of care and approve it. It will need to be FAXED BACK to us at [phone] for Medicare purposes. For Medicare only, by signing this I certify the plan of care. Please let me know if there are questions or concerns regarding this plan of care. Physician Signature: Date:
--- NOTE | 2020-08-29 13:35 | HP.PTDCSUM ---
It has been my pleasure to treat CARLOS MORIN referred by Dr. Carlos Rodriguez DO, with the diagnosis of R piriformis syndrome for a total of 6 visit(s). Discharge Date: 08/29/20 Please see the following information for a summary of their discharge status. Subjective: Feel a little better during day with less intense symptoms. Nights stilla struggle. Hard to stay comfortable. R leg worse at night. 3/10 during day when has been moving. Lying flat is most cofortable. Sees Doctor in the next week. Has [facility] neurosurgeon consult Wednesday for second opinion. R buttock and leg Pain Intensity (Out of 10): 2 % Improvement: 30 Objective/Function: L/S ext slow and limited with R sided pain unaffected by repeated motions. Flexion and R SB full and L SB slow and painful R LB. reflexes aptella moustapha chilles 2/3 B. Sensation WNL to gross light touch in B LE but c/o some numbness lateral R upper leg. Strength 4+/5 in LE. Still appears tender to roll on table. Hip ROM now symmetrical and R hip moving wella dn without pain. Overall better hip ROM and flexibility but not the concomitant improvement in symptoms that we hoped for. Goal 1:: patient pain in R LE 2/10 at worst and 70% better. Goal Progress: Progressing Goal 2:: Pt I in appropriate HEP to limit future problems. Goal Progress: Goal Met Goal 3:: LEFS score 60/80 Goal Progress: Not Progressing Goal 4:: transition in bed without pain. Goal Progress: Not Progressing Plan: Pt to schedule with doctor for next appropriate medical step. Would be happy to continue seeing for core strength if no other options appropriate. Pt will cotninue pirifromis stretches and rollotu at home via HEP. Discharge Comments: Pt to schedule with doctor due to lack of adequate improvement. Piriformis treatment has not been overly helpful. still appears low back related to this therapist but patient is to check with doctor as she has had low back therapy in the past without adequate results. If there are questions or concerns regarding this patient's physical therapy, please feel free to call me at [phone]. Thank you for the referral of this patient. Sincerely, Chris Conde, DPT, OCS, CSCS
== END 2020-08-29 19:00 | disposition home or self-care (01) ==
LOC: PT 13:00
PROVIDERS: PCP Family Medicine; Visit Provider Orthopaedic Surgery
DX: G57.01 Lesion of sciatic nerve, right lower limb (principal)
CPT/HCPCS: 97035; 97110; 97140; 97162; 97164

== ENCOUNTER → 2020-09-11 14:14 | Outpatient (CLI) | payer OTHER, SELFPAY ==
--- NOTE | 2020-09-11 14:44 | RAD_ITS ---
chronic low back pain with right sided sciatica Sacroiliac joints 3 views No priors Findings: No significant erosions. No subchondral sclerosis. The sacroiliac joints are not widened There is minimal vacuum phenomena seen at the inferior sacroiliac joints. Small osteophytes are also noted. Clips are seen overlying the pelvis suspect for tubal ligation devices RAD/S-I Jts 3 or More Views IMPRESSION: No acute pathology at 0142 Reported and signed by: Phyllis Tsai DO Electronically Signed: Phyllis Tsai DO at 1:41 EST Tel , Service support ,
--- NOTE | 2020-09-11 14:44 | RAD_ITS ---
STUDY: X-RAY - PELVIS REASON FOR EXAM: Female, 45 years old. Chronic low back pain with right sided sciatica TECHNIQUE: One view of the pelvis was obtained. COMPARISON: None. FINDINGS: There is a non-specific bowel gas pattern. Tubal ligation clips are seen overlying the mid right side of the pelvis. Normal bilateral iliac wings, sacroiliac joints and visualized sacrum. Normal visualized bilateral superior and inferior pubic rami. Normal pubic symphysis. Normal ischial tuberosities. Normal visualized right femoral head. Normal right acetabulum. Normal right hip joint. Normal visualized left femoral head. Normal left acetabulum. Normal left hip joint. RAD/Pelvis 1 or 2 Views IMPRESSION: Normal x-ray examination of the pelvis. Electronically Signed: Tristan Pollock, at 10:25 EST , Service support ,
[2020-09-11 18:20] LABS: Erythrocyte Sedimentation Rate 14 mm/hr (0-20)
[2020-09-11 18:22] LABS: Absolute Lymphocyte Count 2.08 X10^3/uL (0.83-4.51); Absolute Neutrophil Count 4.1 X10^3/uL (2.0-7.7); Basophil# 0.04 X10^3/uL; Basophil% 0.6 % (0-1); Eosinophil# 0.14 X10^3/uL; Hematocrit 46.1 % (37-47); Hemoglobin 14.7 g/dL (12.0-15.0); Lymphocyte # 2.08 X10^3/ul (4.0); Lymphocyte % 29.4 % (19-41); Mean Corp Hgb Conc 31.9 g/dL (32-36); Mean Corpuscular Hgb 27.6 pg (27.0-32.0); Mean Corpuscular Volume 86.7 fL (81-99); Mean Platelet Vol. 10.7 fl (6.2-12.0); Monocyte% 9.9 % (0-10); NRBC Flagged by Analyzer 0 % (0-5); Platelet Count 318 K/mm3 (150-450); RBC Distribution Width CV 13.4 % (11.6-14.6); RBC Distribution Width SD 42.6 fl (35.1-43.9); Red Blood Count 5.32 M/mm3 (4.2-5.4); White Blood Count 7.1 K/mm3 (4.4-11.0)
[2020-09-11 18:26] LABS: Anion Gap 6 (5-15); BUN 14 mg/dL (7-18); BUN/Creat Ratio 17.1 RATIO (10-20); CRP 3.25 mg/L (0.0-3.0); Chloride 112 mmol/L (98-107); Creatinine, Serum 0.82 mg/dL (0.55-1.02); EST Glomerular Filtration Rate 81 mL/min (>60); Est Glom Filt Rate - Afr Amer 98 mL/min (>60); Glucose 87 mg/dL (74-106); Potassium 4.1 mmol/L (3.5-5.1); Rheumatoid Factor < 10.0 IU/mL (<15); Sodium Level 141 mmol/L (136-145)
[2020-09-13 17:02] LABS: ANTINUCLEAR ANTIBODIES DIRECT Negative (Negative)
[2020-09-17 20:32] LABS: HLA B27 Negative (.)
== END ==
PROVIDERS: PCP Family Medicine; Referring Provider Family Medicine; Visit Provider Family Medicine
DX: M54.16 Radiculopathy, lumbar region (principal); M54.41 Lumbago with sciatica, right side; G89.29 Other chronic pain
CPT/HCPCS: 36415; 72170; 72202; 80048; 81374; 85025; 85652; 86038; 86140; 86431

== ENCOUNTER 2020-10-11 13:13 | Emergency (ER) | payer OTHER, SELFPAY ==
[2020-09-29 12:32] VITALS: BMI 32.9
[2020-10-11 13:13] VITALS: BP 125/80; PULSE 90; RESP 20; TEMP 36.6; O2SAT 98; BMI 33.3
--- NOTE | 2020-10-11 13:46 | EKG12_ITS ---
Test Reason : GEN ILLNESS Blood Pressure : / mmHG Vent. Rate : 082 BPM Atrial Rate : 082 BPM P-R Int : 104 ms QRS Dur : 072 ms QT Int : 384 ms P-R-T Axes : 040 014 008 degrees QTc Int : 448 ms Sinus rhythm with short MS Low voltage QRS Borderline ECG Confirmed by ÁNGEL MELO, JUSTEN ([id number]), greeting card editor CIRA MCAHUCA ([id number]) on 10/16/2020 6:37:23 AM Referred By: AURA Confirmed By:JUSTEN NEAL MD
--- NOTE | 2020-10-11 13:49 | ED.DCSUM_ITS ---
- ER Visit Summary Date of Service: 10/11/20 Chief Complaint: Dizziness and palpitations History of Present Illness: The patient is a 45 F who presents with dizziness and palpitations that began today. Patient states her dizziness feels like a spinning sensation. Patient states that at times she feels her heart racing. Patient states that yesterday she was having some nausea, vomiting, and diarrhea. Patient also admits to a cough with some sputum production. Patient recently tested positive for COVID-19 on 09/29/2020. Patient states she still has a sore throat and some rhinorrhea from that. Patient admits to subjective chills but denies any fevers. Patient also admits to mild headache. Physical Examination: Vital signs are stable. Patient is afebrile. Patient is in no acute distress. Oral mucosa is pink and moist. Neck is supple. Trachea is midline. There is no JVD noted. Heart was regular rate and rhythm. Lungs are clear and equal bilaterally. Abdomen is soft. Bowel sounds are normal. There is no tenderness. There is no rebound or guarding noted. Skin is warm dry. Cranial nerves II through XII are intact. There are no focal motor or sensory deficits noted. Extremities are intact. There is no calf tenderness or edema. Test Results: EKG was obtained. On my interpretation, it shows normal sinus rhythm with a rate of 82. There are no acute ST or T wave changes. Portable 1 view chest x-ray was obtained. On my interpretation, lung conteh are clear. There is normal cardiac silhouette. Bony thorax is normal. There is no acute process noted. Radiologist also interpreted the x-ray and agrees. CBC was normal. Comprehensive metabolic profile was essentially within normal limits. Emergency Department Course and Treatment: Patient was given IV fluids. Patient is feeling better on reevaluation. Patient was advised of her findings. Patient was instructed to follow-up with her primary care physician in 5 to 7 days. Patient was advised that she may return to work when she is symptom-free as it has been more than 10 days since her positive COVID-19 test. Patient understood and was agreeable with the plan. All questions were answered. Disposition: Discharge home Impression: 1. COVID-19 This note was generated with [employer] software. It may contain incorrect words, spelling, and punctuation that were not noted in review of the chart prior to signing ED Disposition - Plan for ED Patient: Disposition: Home or Assisted Living Diagnosis: COVID-19 Instructions: Coronavirus Disease 2019 (COVID-19): Overview Referrals: Felix Ovalle MD [Primary Care Provider] - 3-5 Days
[2020-10-11 14:19] LABS: Absolute Lymphocyte Count 1.47 X10^3/uL (0.83-4.51); Absolute Neutrophil Count 3.9 X10^3/uL (2.0-7.7); Basophil# 0.03 X10^3/uL; Basophil% 0.5 % (0-1); Eosinophil# 0.09 X10^3/uL; Eosinophils% 1.4 % (0-5); Hematocrit 41.2 % (37-47); Hemoglobin 13.6 g/dL (12.0-15.0); Lymphocyte # 1.47 X10^3/ul (4.0); Lymphocyte % 23.2 % (19-41); Mean Corpuscular Hgb 28.3 pg (27.0-32.0); Mean Corpuscular Volume 85.7 fL (81-99); Mean Platelet Vol. 9.9 fl (6.2-12.0); Monocyte# 0.81 X10^3/uL; Monocyte% 12.8 % (0-10); NRBC Flagged by Analyzer 0 % (0-5); Neutrophil # 3.91 X10^3/uL (2.7-7.7); Neutrophil % 61.6 % (47-70); Platelet Count 216 K/mm3 (150-450); RBC Distribution Width CV 13.1 % (11.6-14.6); RBC Distribution Width SD 40.7 fl (35.1-43.9); Red Blood Count 4.81 M/mm3 (4.2-5.4); White Blood Count 6.3 K/mm3 (4.4-11.0)
--- NOTE | 2020-10-11 14:25 | RAD_ITS ---
STUDY: X-RAY CHEST REASON FOR EXAM: Female, 45 years old. POSITIVE FOR COVID ON 09/29/20 -- C/O BRADYCARDIA AND CP WITH DIZZINESS TECHNIQUE: Single AP portable view of the chest. COMPARISON: None. FINDINGS: EKG electrodes are seen. The lungs are clear and expanded. There is no demonstrated pleural abnormality. Normal size heart. Normal mediastinum and kim. Normal visualized pulmonary arteries. Normal visualized aortic arch and descending thoracic aorta. Normal visualized thoracic spine. Normal visualized ribs, clavicles, and shoulders. There is no demonstrated abnormality of the visualized soft tissue structures of the upper abdomen. RAD/Chest 1 View (Portable) IMPRESSION: Normal x-ray examination of the chest. Electronically Signed: Tristan Pollock, at 14:49 EST , Service support ,
[2020-10-11 14:28] VITALS: BP 125/80; PULSE 90; RESP 22; TEMP 36.6; O2SAT 98
[2020-10-11 14:37] LABS: ALB/GLOB Ratio 0.9 RATIO (0.9-2.4); AST(SGOT) 49 U/L (15-37); Alanine Aminotransfer ALT/SGPT 76 U/L (13-56); Albumin, Serum 3.4 g/dL (3.2-5.0); Alkaline Phosphatase 126 U/L (45-117); Anion Gap 5 (5-15); BUN 16 mg/dL (7-18); Calcium,Total 8.6 mg/dL (8.5-10.1); Chloride 112 mmol/L (98-107); Creatinine, Serum 0.73 mg/dL (0.55-1.02); EST Glomerular Filtration Rate 93 mL/min (>60); Est Glom Filt Rate - Afr Amer 112 mL/min (>60); Estimated Creatinine Clearance 89.41 ml/min; Globulin 3.6 g/dL (2.2-4.2); Glucose 55 mg/dL (74-106); Potassium 4.1 mmol/L (3.5-5.1); Sodium Level 140 mmol/L (136-145)
[2020-10-11 15:25] VITALS: BP 112/66; BP 115/61; BP 116/73; PULSE 82; PULSE 83; PULSE 90
[2020-10-11 15:26] VITALS: BP 116/73; PULSE 90; RESP 15; O2SAT 98
== END 2020-10-11 15:31 | disposition home or self-care (01) ==
PROVIDERS: Emergency Provider Emergency Medicine; PCP Family Medicine
DX: U07.1 COVID-19 (principal)
CPT/HCPCS: 71045; 80053; 85025; 93005; 99285; A4216

== ENCOUNTER 2021-05-12 06:32 | Day surgery (SDC) | payer OTHER, SELFPAY ==
[2021-04-22 14:16] VITALS: BMI 34.1
[2021-05-12 07:10] VITALS: BP 132/84; PULSE 84; RESP 16; TEMP 37.4; O2SAT 100; BMI 34.0
[2021-05-12] MEDS: Lactated Ringers 1,000 ML 100 ML IV (07:19)
--- NOTE | 2021-05-12 07:57 | RAD_ITS ---
STUDY: X-RAY - LUMBAR SPINE REASON FOR EXAM: Female, 46 years old. Intraoperative digital documentation images. TECHNIQUE: 2 intraoperative digital documentation view(s) of the lumbar spine were obtained. COMPARISON: None FINDINGS: 2 intraoperative digital documentation views. RAD/Lumbar Spine 2 or 3 Views IMPRESSION: Intraoperative digital documentation views Electronically Signed: Dallas Skelton MD at 9:34 EDT , Service support ,
[2021-05-12] MEDS: MethylPREDNISolone Acetate 80 MG/ML Vial (08:05)
[2021-05-12] MEDS: 0.9% Normal Saline (Pres. free 10 ML Vial (08:05)
[2021-05-12] MEDS: Bupivacaine Mpf 0.5% 30 ML VIAL (08:05)
[2021-05-12] MEDS: Lidocaine 1% (5 ml sdv) 5 ML Vial (08:05)
[2021-05-12 08:15] VITALS: BP 132/84; BP 137/69; PULSE 82; RESP 16; TEMP 36.3; O2SAT 97
[2021-05-12 08:20] VITALS: BP 131/73; BP 132/84; PULSE 78; RESP 16; O2SAT 98
[2021-05-12 08:25] VITALS: BP 129/78; BP 132/84; PULSE 79; RESP 16; O2SAT 98
[2021-05-12 08:30] VITALS: BP 125/85; BP 132/84; PULSE 74; RESP 16; TEMP 36.6; O2SAT 98
[2021-05-12 09:06] VITALS: BP 132/84
--- NOTE | 2021-05-12 10:57 | PCM.OPRPT ---
Report of Operation Date of Procedure: 05/12/21 Description of Surgical Findings:: PREOPERATIVE DIAGNOSES: 1. Lumbosacral radiculopathy. 2. Lumbosacral degenerative disk disease. 3. Lumbosacral spinal stenosis. POSTOPERATIVE DIAGNOSES: 1. Lumbosacral radiculopathy. 2. Lumbosacral degenerative disk disease. 3. Lumbosacral spinal stenosis. PROCEDURE PERFORMED: Right-sided lumbar transforaminal epidural steroid injection, L3-4 and L4-5. ANESTHESIA: MAC. BLOOD LOSS: Minimal. COMPLICATIONS: None. DESCRIPTION OF PROCEDURE: History and physical of today was reviewed. Risks and benefits of the procedure were explained. The patient understood and agreed to proceed. Informed consent was obtained. IV inserted per routine protocol. The patient was taken to the operating room and placed in the prone position with a pillow positioned underneath the abdomen. The right side of the lower back was prepped and draped in a sterile fashion using iodine x3. Under fluoroscopy guidance on oblique view, the L3 through L5 vertebral bodies were visualized. The skin and subcutaneous tissue was anesthetized with approximately 5 mL of 1% lidocaine using a 25-gauge regular needle. Under direct visualization with fluoroscopy at approximately 35-degree angle, starting on the right L3, ending on the right L5, using a 22-gauge 5-inch spinal needle, the needle was advanced via the skin. The tip of the needle was maneuvered and directed towards the inferior and medial gutter of the transverse process at the superiormost aspect of the neural foramen. Once the tip of the needle was at the vicinity of the foramen, after negative aspiration for blood or CSF, a total of 1 mL of contrast was injected in divided doses between both levels to confirm correct placement of the needle as well as medial spread. The confirmation was obtained on AP as well as lateral view. After repeated negative aspiration and confirmation on AP as well as lateral view, a total of 6 mL of preservative-free 0.25% Marcaine with 80 mg of Depo-Medrol was injected in divided doses between both levels. The needles were then removed intact. The patient experienced no sign or symptoms of intrathecal or intravascular injection. The patient experienced no paresthesia. The procedure was completed without any apparent difficulty or any complications. The patient appeared to tolerate it well. ASSESSMENT AND PLAN: This is a 46-year-old female with lumbosacral radiculopathy, lumbosacral degenerative disk disease, and lumbosacral spinal stenosis, status post right-sided lumbar transforaminal epidural steroid injection at L3-4 and L4-5. The patient will continue her current medications. The patient will follow up in approximately 2 weeks for reevaluation..
== END 2021-05-12 09:06 | disposition home or self-care (01) ==
LOC: SDC 06:33 → AC 06:34
PROVIDERS: PCP Family Medicine; Referring Provider Anesthesiology Pain Medicine; Visit Provider Anesthesiology Pain Medicine
PROC: 3E0S3BZ Introduction of Anesthetic Agent into Epidural Space, Percutaneous Approach (ICD-10-PCS; CPT 64484; principal; 2021-05-12 07:55)
DX: M51.17 Intervertebral disc disorders with radiculopathy, lumbosacral region (principal); M48.07 Spinal stenosis, lumbosacral region; K21.9 Gastro-esophageal reflux disease without esophagitis; E78.00 Pure hypercholesterolemia, unspecified
CPT/HCPCS: 64484; 64483; 72100; J7120; J3490

== ENCOUNTER → 2021-06-11 09:23 | Outpatient (CLI) | payer OTHER, SELFPAY | PROVIDERS: PCP Family Medicine; Referring Provider Family Medicine; Visit Provider Family Medicine | DX: E04.1 Nontoxic single thyroid nodule (principal) | CPT/HCPCS: 36415; 84439; 84443 ==

== ENCOUNTER 2021-06-16 09:57 | Day surgery (SDC) | payer OTHER, SELFPAY ==
[2021-06-16 10:24] VITALS: BP 137/91; PULSE 99; RESP 16; TEMP 36.5; O2SAT 100; BMI 33.3
[2021-06-16] MEDS: Lactated Ringers 1,000 ML 100 ML IV (10:29)
--- NOTE | 2021-06-16 10:33 | RAD_ITS ---
PROCEDURE: Transforaminal epidural injection. DATE OF EXAMINATION: 06/16/2021. INDICATION: Female, 46 years old. Back pain. FLUOROSCOPY TIME (if supplied): (8 seconds) minutes/seconds. 3 images were submitted. RAD/Lumbar Spine 2 or 3 Views IMPRESSION: Intraoperative imaging provided for right L3-L5 transforaminal epidural injection. Electronically Signed: Tristan Pollock MD at 15:49 EDT , Service support ,
[2021-06-16] MEDS: Lidocaine 1% (5 ml sdv) 5 ML Vial (10:45)
[2021-06-16] MEDS: Bupivacaine 0.25% 30 ML Vial (10:45)
[2021-06-16] MEDS: MethylPREDNISolone Acetate 80 MG/ML Vial (10:45)
[2021-06-16 10:55] VITALS: BP 127/81; BP 137/91; PULSE 81; RESP 16; TEMP 36.2; O2SAT 98
[2021-06-16 11:00] VITALS: BP 129/76; BP 137/91; PULSE 83; RESP 16; O2SAT 99
[2021-06-16 11:15] VITALS: BP 136/86; BP 137/91; PULSE 82; RESP 16; O2SAT 99
[2021-06-16 11:21] VITALS: BP 136/86; BP 137/91; PULSE 81; RESP 16; TEMP 36.4; O2SAT 99
[2021-06-16 11:35] VITALS: BP 137/91
--- NOTE | 2021-06-16 15:40 | PCM.OPRPT ---
Report of Operation Date of Procedure: 06/16/21 Description of Surgical Findings:: PREOPERATIVE DIAGNOSES: 1. Lumbosacral radiculopathy. 2. Lumbosacral degenerative disk disease. 3. Lumbosacral spinal stenosis. POSTOPERATIVE DIAGNOSES: 1. Lumbosacral radiculopathy. 2. Lumbosacral degenerative disk disease. 3. Lumbosacral spinal stenosis. PROCEDURE PERFORMED: Right-sided lumbar transforaminal epidural steroid injection, L3-4 and L4-5. ANESTHESIA: MAC. BLOOD LOSS: Minimal. COMPLICATIONS: None. DESCRIPTION OF PROCEDURE: History and physical of today was reviewed. Risks and benefits of the procedure were explained. The patient understood and agreed to proceed. Informed consent was obtained. IV inserted per routine protocol. The patient was taken to the operating room and placed in the prone position with a pillow positioned underneath the abdomen. The right side of the lower back was prepped and draped in a sterile fashion using iodine x3. Under fluoroscopy guidance on oblique view, the L3 through L5 vertebral bodies were visualized. The skin and subcutaneous tissue was anesthetized with approximately 5 mL of 1% lidocaine using a 25-gauge regular needle. Under direct visualization with fluoroscopy at approximately 35-degree angle, starting on the right L3, ending on the right L5, using a 22-gauge 5-inch spinal needle, the needle was advanced via the skin. The tip of the needle was maneuvered and directed towards the inferior and medial gutter of the transverse process at the superiormost aspect of the neural foramen. Once the tip of the needle was at the vicinity of the foramen, after negative aspiration for blood or CSF, a total of 1 mL of contrast was injected in divided doses between both levels to confirm correct placement of the needle as well as medial spread. The confirmation was obtained on AP as well as lateral view. After repeated negative aspiration and confirmation on AP as well as lateral view, a total of 6 mL of preservative-free 0.25% Marcaine with 80 mg of Depo-Medrol was injected in divided doses between both levels. The needles were then removed intact. The patient experienced no sign or symptoms of intrathecal or intravascular injection. The patient experienced no paresthesia. The procedure was completed without any apparent difficulty or any complications. The patient appeared to tolerate it well. ASSESSMENT AND PLAN: This is a 46-year-old female with lumbosacral radiculopathy, lumbosacral degenerative disk disease, and lumbosacral spinal stenosis, status post right-sided lumbar transforaminal epidural steroid injection at L3-4 and L4-5. The patient will continue her current medications. The patient will follow up in approximately 2 weeks for reevaluation..
== END 2021-06-16 11:38 | disposition home or self-care (01) ==
LOC: SDC 09:58 → AC 09:59
PROVIDERS: PCP Family Medicine; Referring Provider Anesthesiology Pain Medicine; Visit Provider Anesthesiology Pain Medicine
PROC: 3E0S3BZ Introduction of Anesthetic Agent into Epidural Space, Percutaneous Approach (ICD-10-PCS; CPT 64484; principal; 2021-06-16 11:25)
DX: M48.07 Spinal stenosis, lumbosacral region (principal); M51.17 Intervertebral disc disorders with radiculopathy, lumbosacral region; F32.9 Major depressive disorder, single episode, unspecified; F41.9 Anxiety disorder, unspecified; M51.37 Other intervertebral disc degeneration, lumbosacral region; M46.96 Unspecified inflammatory spondylopathy, lumbar region
CPT/HCPCS: 64484; 64483; 72100; J7120

== ENCOUNTER → 2021-07-18 10:31 | Outpatient (CLI) | payer OTHER, SELFPAY ==
--- NOTE | 2021-07-18 10:34 | RAD_ITS ---
STUDY: X-RAY - PELVIS AND RIGHT HIP REASON FOR EXAM: Chronic right hip pain and back pain, status post back injury 1 year ago. TECHNIQUE: 2 views of the pelvis and hip. COMPARISON: Radiographs 09/11/2020. FINDINGS: There are surgical clips in the right hemipelvis. Normal bilateral iliac wings, sacroiliac joints and visualized sacrum. Normal bilateral superior and inferior pubic rami. Normal pubic symphysis. Normal bilateral ischial tuberosities. There is a small right femoral cam lesion and a small herniation pit at the lateral aspect of the femoral neck. There is a small right os acetabula. Normal hip joint. RAD/HIP, UNI W/ Pelvis 2-3 Views IMPRESSION: Small right femoral cam lesion, small herniation pit and os acetabula, possible manifestations of femoroacetabular impingement. Otherwise, unremarkable x-ray examination of the right hip. Electronically Signed: Neo Kohler MD at 11:09 EDT Tel , Service support ,
== END ==
PROVIDERS: PCP Family Medicine; Referring Provider Nurse Practitioner Family; Visit Provider Nurse Practitioner Family
DX: M25.551 Pain in right hip (principal)
CPT/HCPCS: 73502

== ENCOUNTER → 2021-08-04 17:39 | Outpatient (CLI) | payer OTHER, SELFPAY ==
--- NOTE | 2021-08-04 17:42 | MRI_ITS ---
STUDY: MRI RIGHT HIP REASON FOR EXAM: Female, 46 years old. PAIN RT HIP JOINT TECHNIQUE: Standardized fat and water weighted pulse sequences were obtained in all 3 orthogonal planes. COMPARISON: 07/18/2021. FINDINGS: Mild bilateral gluteus medius/minimus insertional tendinosis with peritendinitis (coronal image 16 series 4). Normal rectus femoris tendon. Mild bilateral hip hamstring tendinosis with low-grade left-sided partial tear (coronal image 7 series 4). Normal iliopsoas tendon. Normal adductor tendons. No muscle atrophy. Small left cystic adnexal parenchymal image 19 series 4). Cervical cyst (axial image 4 series 6). Remainder the visualized intra-abdominal/pelvic contents within normal limits. No pathologically enlarged lymph nodes. Normal hip joint without articular joint space narrowing. Normal acetabulum. Normal labrum. Normal femoral head. Normal femoral neck and intratrochanteric region. No trochanteric, iliopsoas or iliopectineal bursitis. Normal superior and inferior pubic rami. Normal pubic symphysis. Normal ischial tuberosity. Normal visualized iliac wing, sacroiliac joint, and sacral ala. MRI/Lower Ext Joint Only (Routine) IMPRESSION: Mild bilateral gluteus medius/minimus insertional tendinosis with peritendinitis Mild bilateral hamstring tendinosis with low-grade partial-thickness left sided tear ACCESS LEAD finding statistically physiologic (consider ultrasound evaluation) Electronically Signed: Chris Coelho DO at 9:55 EST Tel , Service support ,
== END ==
PROVIDERS: PCP Family Medicine; Visit Provider Nurse Practitioner Family
DX: M25.551 Pain in right hip (principal)
CPT/HCPCS: 73721

== ENCOUNTER 2022-02-02 13:00 | Outpatient (RCR) | payer OTHER, SELFPAY ==
--- NOTE | 2021-11-10 17:19 | HP.PTEVAL ---
Patient's Visit Information CARLOS MORIN is a 46 year old F referred to Physical Therapy by JUNI ENGLISH with a diagnosis of Right Labral Repair 10/23/2021. Date of Evaluation: 11/10/21 Physical Therapist: Tori Richmond DPT - Visit Plan Frequency: 2-3x /Week Duration: 4 Weeks Plan: Follow Protocol. Right Hip Protocol- Labral Repair 10/23/2021 - Subjective Patient reports that she had a right labral repair 10/23/[address] Jean. She went home after surgery- NWB on crutches- she is getting around okay just slow. Patient reports that she has mild pain in the hip. She had radiating pain prior to surgery. Worst: 01/04 Agg: sitting, up/down, moving Ease: rest, ice Best: 10/06. Describes the pain as achy. Pain is located in the anterior hip. Incision has steri-strips and is open. No s/s of infection. Sleep: disturbed- hard to get comfortable- sleeping in a bed. Usually a belly sleeper so this is hard to sleep on her back. 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 Went back to MD on Wednesday- he was happy with progress- no x-rays or MRI. Fully I prior to surgery- has family at home that can help- and teenagers at home. She likes to get back to walking for exercise pain free- and work a 12 hour shift on her feet. PMHx: none Meds: zoloft, asprin, naproxen. - Objective Posture: FH, RS- can correct with verbal cues but does not maintain. Gait: non weight bearing on the right LE with axillary crutches. Sensation: WNL. ROM: knee: WNL, Hip: flexion: 90 degrees, abd: 30 degrees, IR: 0 degrees, ER: 30 degrees, extn: 0 degrees. Strength: Core: fair, Hip: 4-/5 throughout, Knee: 4+/5, Ankle: 5/5. Flex: HS: severe, Gastroc: severe - Balance/Special Test Scores Lower Extremity Functional Score: 13 - Goals Goal 1:: Patient will be I with HEP and progression. (follow protocol) Goal Time Frame: 4-6 Weeks Goal 2:: Patient will ambulate >300 feet with normalized gait pattern. (follow protocol) Goal Time Frame: 4-6 Weeks Goal 3:: Patient will SLS for 30 sec without LOB. (follow protocol) Goal Time Frame: 4-6 Weeks Goal 4:: Patient will report 75% return to normal ADL's. (follow protocol) - Rehabilitation Potential Physical Therapy Diagnosis: Patient presents s/p right labral repair- she has decreased pain free ROM, LE and core strength/stabilization, flex and muscular endurance leading to abnormal gait and increased pain with ADL's. Rehabilitation Potential: Good - Anticipated Interventions Patient/Client Instruction: Educate patient on: Benefits of Fitness Program Therapeutic Exercise to Include: Strength training, Endurance training, Agility training, Body mechanics, Postural training, Flexibilty training, Gait and locomotor training, Neuromotor development, Dynamic Lumbar Stabilization, Scapular Strength/Stabilization Comment: Follow Protocol For the Purpose of:: To improve muscle performance and motor function Thank you for the opportunity to evaluate your patient. For Medicare and Medicare HMO plans, please review the plan of care and approve it. It will need to be FAXED BACK to us at [phone] for Medicare purposes. For Medicare only, by signing this I certify the plan of care. Please let me know if there are questions or concerns regarding this plan of care. Physician Signature: Date:
--- NOTE | 2021-12-08 13:22 | HP.PTREVAL ---
JUNI ENGLISH, It has been my pleasure to treat CARLOS MORIN over the last 9 visits for Right Labral Repair 10/23/2021. Please see the progress note below for an update on the physical therapy plan of care! Subjective: Patient reports that she is still having weakness and some soreness mostly at night. Saw the MD Wednesday and he is happy and everything she is doing everything she should be doing. Still is having some pinching- depending on the movement. Stopped using crutches and started driving on Wednesday. Worst: 3/10 Best: 0/10. Eases: ice, rest and Aleve. She would like to get back to normal walking for exercise. Objective/Function: Posture: FH, RS- can correct with verbal cues but does not maintain. Gait: no significant deviation noted Sensation: WNL. ROM: Lumbar: WFL in all planes- report discomfort with rotation right. knee: WNL, Hip: flexion: 120 degrees, abd: 30 degrees, IR: 20 degrees, ER: 60 degrees, extn: 15 degrees. Strength: Core: fair, Hip: 4/5 throughout, Knee: 4+/5, Ankle: 5/5. Flex: HS: mod Gastroc: mod. SLS: 10 sec then LOB-moderate sway Plan Plan: 12/08/21: Continue to follow protocol. Follow Protocol. Right Hip Protocol- Labral Repair 10/23/2021 Balance/Gait/Functional tests - Balance/Special Test Scores Lower Extremity Functional Score: 43 Goals Goal 1:: Patient will be I with HEP and progression. (follow protocol) Goal Time Frame: 4-6 Weeks Goal Progress: Progressing Goal 2:: Patient will ambulate >300 feet with normalized gait pattern. (follow protocol) Goal Time Frame: 4-6 Weeks Goal Progress: Progressing Goal 3:: Patient will SLS for 30 sec without LOB. (follow protocol) Goal Time Frame: 4-6 Weeks Goal Progress: Progressing Goal 4:: Patient will report 75% return to normal ADL's. (follow protocol) Goal Progress: Progressing Anticipated Interventions Patient/Client Instruction: Educate patient on: Benefits of Fitness Program Therapeutic Exercise to Include: Strength training, Endurance training, Agility training, Body mechanics, Postural training, Flexibilty training, Gait and locomotor training, Neuromotor development, Dynamic Lumbar Stabilization, Scapular Strength/Stabilization Comment: Follow Protocol For the Purpose of:: To improve muscle performance and motor function Please do not hesitate to contact me at [phone] by phone or if you have questions or concerns regarding this new plan of care! Sincerely, CLARISA CubaT
--- NOTE | 2022-01-12 11:39 | HP.PTREVAL_ITS ---
JUNI ENGLISH, It has been my pleasure to treat CARLOS MORIN over the last 18 visits for Right Labral Repair 10/23/2021. Please see the progress note below for an update on the physical therapy plan of care! Subjective: Patient reports that she feels a lot stronger but she still has decreased endurance and some pain. Worst in the last week 12/04, most of the time she is pain free or or a 1/10. With certain movements its deep and shooting but more groin pain and thigh discomfort. She is currently back to all normal ADL's. See the MD on Wed and then returns to work on Wednesday. 12-13 hours on her feet- walks about 5 miles- can sit but depends on the day. She has not run or jumped but doesn't know that she wants to. She feels that she is 85- 90% back to baseline. She feels that she can do a lot of the PT stuff at home- and she needs to get on a walking program. Objective/Function: Posture: FH, RS- can correct with verbal cues but does not maintain. Gait: no significant deviation noted Sensation: WNL. ROM: Lumbar: WFL in all planes knee: WNL, Hip: WFL in all planes Strength: Core: fair, Hip: Flexion:12 lbs, Extn:38 IR: 19 ER: 10 Abd: 25 Add:35 (dynamometer lbs of force) , Knee: 4+/5, Ankle: 5/5. Flex: HS: mod Gastroc: mod. SLS: 15 sec then LOB-mild sway Plan Plan: 01/12/22: Hold- return to MD and return to work- will call if questions or needs to come back- I with HEP and walking progression. 12/08/21: Continue to follow protocol. Follow Protocol. Right Hip Protocol- Labral Repair 10/23/2021 Balance/Gait/Functional tests - Balance/Special Test Scores Lower Extremity Functional Score: 48 Tug Test: <10 sec.=free mobile 30 Second Chair Rise Test Seconds: 13 Goals Goal 1:: Patient will be I with HEP and progression. (follow protocol) Goal Time Frame: 4-6 Weeks Goal Progress: Goal Met Goal 2:: Patient will ambulate >300 feet with normalized gait pattern. (follow protocol) Goal Time Frame: 4-6 Weeks Goal Progress: Goal Met Goal 3:: Patient will SLS for 30 sec without LOB. (follow protocol) Goal Time Frame: 4-6 Weeks Goal Progress: Progressing Goal 4:: Patient will report 75% return to normal ADL's. (follow protocol) Goal Progress: Goal Met Anticipated Interventions Patient/Client Instruction: Educate patient on: Benefits of Fitness Program Therapeutic Exercise to Include: Strength training, Endurance training, Agility training, Body mechanics, Postural training, Flexibilty training, Gait and locomotor training, Neuromotor development, Dynamic Lumbar Stabilization, Scapular Strength/Stabilization Comment: Follow Protocol For the Purpose of:: To improve muscle performance and motor function Please do not hesitate to contact me at [phone] by phone or if you have questions or concerns regarding this new plan of care! Sincerely, Tori Richmond DPT
--- NOTE | 2022-04-08 14:45 | HP.PT.NRP ---
CARLOS MORIN was seen in my office for initial evaluation on 11/10/21. The following Plan of Care was established for this patient: Initial Frequency: 2-3x /Week Initial Duration: 4 Weeks Patient/Client Instruction: Educate patient on: Benefits of Fitness Program Therapeutic Exercise to Include: Strength training, Endurance training, Agility training, Body mechanics, Postural training, Flexibilty training, Gait and locomotor training, Neuromotor development, Dynamic Lumbar Stabilization, Scapular Strength/Stabilization For the Purpose of:: To improve muscle performance and motor function This patient was last seen in our office . Pertinent comments regarding their Physical therapy will appear below: Patient has not attended PT in over 30 days and is appropriate to be d/c from PT and return to MD as needed. At this point I will be discontinuing this patient from physical therapy. I would be happy to see this patient again in the future if found appropriate by the physician. Thank you! Tori Richmond, DPT Balance/Gait/Functional tests - Balance/Special Test Scores Lower Extremity Functional Score: 48 Tug Test: <10 sec.=free mobile 30 Second Chair Rise Test Seconds: 13
== END 2022-02-02 19:00 | disposition home or self-care (01) ==
LOC: PT 13:00
PROVIDERS: PCP Family Medicine
DX: S76.011D Strain of muscle, fascia and tendon of right hip, subsequent encounter (principal); M25.851 Other specified joint disorders, right hip
CPT/HCPCS: 97014; 97110; 97162; 97164; G0283

== ENCOUNTER → 2022-07-28 | Outpatient (CLI) | payer OTHER, SELFPAY ==
--- NOTE | 2022-07-28 12:28 | BI_ITS ---
MAMMOGRAPHY - BILATERAL SCREENING REASON FOR EXAM: Female, 47 years old. Routine annual screening examination. PERTINENT HISTORY: Non-contributory. History of prior bilateral breast reduction surgery. TECHNIQUE: Digital bilateral breast ivory (3D mammographic acquisition) in the CC and MLO projections. 2-D mediolateral oblique (MLO) and craniocaudad (CC) views of both breasts were obtained. CAD: Full Field Digital Mammography with Computer Added Detection was performed. COMPARISON: Comparison is made with prior study dated 04/08/2020. FINDINGS: Breast Composition: The breasts are heterogeneously dense, which may obscure small masses. There are no dominant masses or suspicious calcifications. Stable benign-appearing bilateral axillary lymph nodes. No other significant abnormalities are identified. There has been no significant change since the prior study. BI/SCRN MAMM (CAD)W/IVORY BILAT IMPRESSION: Stable bilateral screening mammogram. Yearly follow-up mammogram recommended. (A) ASSESSMENT CATEGORY: BIRADS Category 2: Benign. A letter regarding these results will be sent to the patient by the facility within 30 days. Approximately 10% of breast cancers are not detected by mammography. A normal mammogram should not delay biopsy of a clinically suspicious abnormality. [id number] Electronically Signed: Tristan Pollock MD at 13:46 EDT ,
== END | disposition home or self-care (01) ==
LOC: OPBI 12:27
PROVIDERS: PCP Family Medicine; Referring Provider Family Medicine; Visit Provider Family Medicine
DX: Z12.31 Encounter for screening mammogram for malignant neoplasm of breast (principal)
CPT/HCPCS: 77063; 77067

== ENCOUNTER → 2023-08-10 | Outpatient (CLI) | payer OTHER, SELFPAY ==
--- NOTE | 2023-08-10 13:53 | BI_ITS ---
MAMMOGRAPHY - BILATERAL SCREENING REASON FOR EXAM: Female, 48 years old. Routine annual screening examination. PERTINENT HISTORY: Non-contributory. History of prior bilateral breast reduction surgery and breast lift. TECHNIQUE: Digital bilateral breast ivory (3D mammographic acquisition) in the CC and MLO projections. 2-D mediolateral oblique (MLO) and craniocaudad (CC) views of both breasts were obtained. CAD: Full Field Digital Mammography with Computer Added Detection was performed. COMPARISON: Comparison is made with prior study July 28, 2022 and April 08, 2020. FINDINGS: Breast Composition: The breasts are heterogeneously dense, which may obscure small masses. There are no dominant masses or suspicious calcifications. Stable fat-containing bilateral axillary lymph nodes. No other significant abnormalities are identified. There has been no significant change since the prior study. BI/SCRN MAMM (CAD)W/IVORY BILAT IMPRESSION: Stable bilateral screening mammogram. Yearly follow-up mammogram recommended. (A) ASSESSMENT CATEGORY: BIRADS Category 2: Benign. A letter regarding these results will be sent to the patient by the facility within 30 days. Approximately 10% of breast cancers are not detected by mammography. A normal mammogram should not delay biopsy of a clinically suspicious abnormality. [id number] Electronically Signed: Tristan Pollock MD at 14:36 EST ,
== END | disposition home or self-care (01) ==
LOC: OPBI 13:52
PROVIDERS: PCP Family Medicine; Referring Provider Nurse Practitioner Family; Visit Provider Nurse Practitioner Family
DX: Z12.31 Encounter for screening mammogram for malignant neoplasm of breast (principal)
CPT/HCPCS: 77063; 77067

== ENCOUNTER → 2024-05-21 | Outpatient (CLI) | payer OTHER, SELFPAY | END | disposition home or self-care (01) | LOC: LABSPEC 13:40 | PROVIDERS: PCP Family Medicine; Visit Provider Nurse Practitioner | DX: N39.0 Urinary tract infection, site not specified (principal) | CPT/HCPCS: 87086; 87088; 87186 ==

== ENCOUNTER → 2024-11-07 | Outpatient (CLI) | payer OTHER, SELFPAY ==
[2024-11-07 10:37] LABS: Mucous, Urine 0 SEEN /hpf (<or=2+)
[2024-11-07 10:49] LABS: Color, Urine Yellow (Yellow); Glucose, Dipstick Normal (Normal); Ketone-Dipstick Negative (Negative); Leukocyte Esterase-Dipstick 500 /ul (Negative); Nitrite-Dipstick Positive (Negative); Occult Blood-Urine 250 /ul (Negative); Protein-Dipstick 30 mg/dl (Negative); Specific Gravity, Urine 1.015 (1.002-1.030); Urine Bilirubin Dipstick Negative (Negative); Urine Clarity Cloudy (Clear); Urine Urobilinogen 1 mg/dl (Normal)
[2024-11-07 10:57] LABS: White Blood Cells >100 SEEN /hpf (0-5)
[2024-11-07 10:58] LABS: Bacteria 2+ /hpf (None Seen); Red Blood Cells-Urine 25-50 SEEN /hpf (0-5); Squamous Epithelial Cells - UA 0-5 SEEN /hpf (5-10)
== END | disposition home or self-care (01) ==
PROVIDERS: PCP Family Medicine; Referring Provider Family Medicine; Visit Provider Family Medicine
DX: N39.0 Urinary tract infection, site not specified (principal)
CPT/HCPCS: 81001

== ENCOUNTER 2025-02-14 13:00 | Outpatient (RCR) | payer OTHER, SELFPAY ==
--- NOTE | 2025-01-08 13:30 | HP.PTEVAL_ITS ---
Patient's Visit Information Visit Information Visit Information: CARLOS MORIN is a 49 year old F referred to Physical Therapy by SUSHIL Benites with a diagnosis of IMPINGEMENT SYNDROME OF LEFT SHOULDER,BICEPS TENDITIS OF LEFT SHOULDER. Date of Evaluation: 01/08/25 Physical Therapist: Andrew Maradiaga, PT, Cert MDT, OCS Visit Plan Frequency: 2x /Week Duration: 4 Weeks Plan: PT INTERVENTIONS RTC /SCAPULAR STRENGTHENING ,POSTURAL EX'S ,AND MODALTIES Subjective Subjective: This 49 y/o female presents to physical therapy with left shoulder p ain. Patient has left shoulder pain for ~ [address] x-rays -.and needs PT if MRI is needed. No injury just insidious onset of pain. Patient pain located global shoulder. Patient described as ache. Patient aggravating factors lifting ,OH activity thus affects ADLS and housework task. Alleviating factors cold and motrin. Patient condition affects sleeping on left side. Patient has no trauma.Denies paresthesia/tingling - .Patient condition affects QOL and function/job demands. Patient goals to decrease pain. 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 Left Shoulder: Pain Intensity (Out of 10): 3 Pain Intensity Range: 10 Objective Objective: POSTURE: mild forward posture PALAPTION: tender AC NEURO: denies parestehesia/tingling,reflexes intact AROM: shoulder flexion 120 degrees pain ,abduction 150 degrees ,ER 90 ,IR L1 PROM: flexion /abduction 160 degrees CAPSULAR : WFL MMT: ( peak force) infraspinatus 7.9 subscapularis 15.3 ,supraspinatus 8.2 ,deltoid 7.9 Special Tests L Shoulder External Rotation Lag Test - RC Tear: Negative L Shoulder Lift Off Test - Subscapular Tear: Negative L Shoulder Drop Sign - IS Test: Positive L Shoulder Empty Can - SS: Positive L Shoulder Neer - Impingement: Positive L Shoulder Pickard Ashutosh - Impingement: Positive L Shoulder O[place]riens - SLAP/A-C: Positive Balance/Special Test Scores Quick DASH Score: 31.8175 Goals Goal 1:: Patient to be I with HEP for shoulder Goal Time Frame: 4-6 Weeks Goal 2:: Patient to improve AROM shoulder flexion /abduction 150 degrees with less pain with OH activities Goal Time Frame: 4-6 Weeks Goal 3:: Patient to demonstrate 50% improvement with ADLS and job demands Goal Time Frame: 4-6 Weeks Goal 4:: Patient to improve peak force strength 5-10# improve function and ADLS Goal Time Frame: 4-6 Weeks Goal 5:: Patient be able to perform ADLS and housework tasks with min limitations Goal Time Frame: 4-6 Weeks Rehabilitation Potential Physical Therapy Diagnosis: This patient has left shoulder pain due to possible RTC tear/tendinopathy with pain ,decrease ROM ,weakness ,affects ADLS and housework tasks /job demands thus benefit from skilled PT PT Rehabilitation Potential: Good Anticipated Interventions Patient/Client Instruction: Educate patient on: Condition and Plan of Care For the Purpose of:: To decrease pain, To improve muscle performance and motor function, To increase tolerance to activity/condition/position, To improve ability of physical actions for home/community/work/leisure, To improve health of tissue, To decrease soft tissue restriction, To increase flexibility/ROM, To assume or resume ADL's, To reduce risk of recurrence and To improve tolerance to ADL's Therapeutic Exercise to Include: Strength training, Postural training and Active ROM Comment: RTC For the Purpose of:: To decrease pain, To increase ROM, To improve muscle performance and motor function, To improve ability to perform ADL's, To increase tolerance to activity/condition/position, To improve ability of physical actions for home/community/work/leisure, To improve health of tissue, To decrease soft tissue restriction, To increase flexibility/ROM, To reduce risk of recurrence and To improve tolerance to ADL's Text: Thank you for the opportunity to evaluate your patient. For Medicare and Medicare HMO plans, please review the plan of care and approve it. It will need to be FAXED BACK to us at [phone] for Medicare purposes. For Medicare only, by signing this I certify the plan of care. Please let me know if there are questions or concerns regarding this plan of care. Physician Signature: Date:_
--- NOTE | 2025-02-14 13:43 | HP.PTDCSUM ---
Discharge Summary D/C summary: It has been my pleasure to treat CARLOS MORIN referred by SUSHIL Benites, with the diagnosis of IMPINGEMENT SYNDROME OF LEFT SHOULDER,BICEPS TENDITIS OF LEFT SHOULDER for a total of 5 visit(s). Discharge Date: 02/14/25 Please see the following information for a summary of their discharge status. Subjective Subjective: Patient reports symptoms some worse and not better Any activity OH and lifting is painful some worse with catching Pain Left Shoulder: Pain Intensity (Out of 10): 3 Overall Improvement % Improvement: 0 Objective Objective/Function: POSTURE: mild forward posture PALAPTION: tender AC NEURO: denies parestehesia/tingling,reflexes intact AROM: shoulder flexion 120 degrees pain ,abduction 150 degrees ,ER 90 ,IR L1 PROM: flexion /abduction 160 degrees ,ER 95 CAPSULAR : WFL MMT: ( peak force) infraspinatus 10.0 subscapularis 15.3 ,supraspinatus 7.0 Pain ,deltoid 7.9 pain Goals Goal 1:: Patient to be I with HEP for shoulder Goal Progress: Progressing Goal 2:: Patient to improve AROM shoulder flexion /abduction 150 degrees with less pain with OH activities Goal Progress: Not Progressing Goal 3:: Patient to demonstrate 50% improvement with ADLS and job demands Goal Progress: Not Progressing Goal 4:: Patient to improve peak force strength 5-10# improve function and ADLS Goal Progress: Not Progressing Goal 5:: Patient be able to perform ADLS and housework tasks with min limitations Goal Progress: Not Progressing Plan Plan: -Possible RTC tear -RTD -MRI D/C Information Discharge Comments: RTD d/c sentence: If there are questions or concerns regarding this patient's physical therapy, please feel free to call me at [phone]. Thank you for the referral of this patient. Sincerely, Andrew Maradiaga, PT, Cert MDT, OCS Balance/Gait/Functional tests Balance/Special Test Scores Quick DASH Score: 31.8175 Improvement % Improvement: 0
== END 2025-02-14 19:00 | disposition home or self-care (01) ==
LOC: PT 13:00
PROVIDERS: PCP Family Medicine; Referring Provider Physician Assistant; Visit Provider Physician Assistant
DX: M75.42 Impingement syndrome of left shoulder (principal); M19.012 Primary osteoarthritis, left shoulder
CPT/HCPCS: 97110; 97140; 97162; 97530

== ENCOUNTER → 2025-04-12 | Outpatient (CLI) | payer OTHER, SELFPAY | END | disposition home or self-care (01) | LOC: LABSPEC 18:04 | PROVIDERS: PCP Family Medicine; Visit Provider Family Medicine | DX: N39.0 Urinary tract infection, site not specified (principal) ==

== ENCOUNTER → 2025-04-13 | Outpatient (CLI) | payer OTHER, SELFPAY ==
[2025-04-12 18:52] LABS: Color, Urine Yellow (Yellow); Glucose, Dipstick Normal (Normal); Ketone-Dipstick Negative (Negative); Leukocyte Esterase-Dipstick Negative /ul (Negative); Nitrite-Dipstick Negative (Negative); Occult Blood-Urine Negative /ul (Negative); Protein-Dipstick 15 mg/dl (Negative); Specific Gravity, Urine 1.015 (1.002-1.030); Urine Bilirubin Dipstick Negative (Negative)
== END | disposition home or self-care (01) ==
LOC: LAB 08:50
PROVIDERS: PCP Family Medicine; Referring Provider Family Medicine; Visit Provider Family Medicine
DX: N39.0 Urinary tract infection, site not specified (principal)
CPT/HCPCS: 81002; 87086; 87088; 87491; 87591; 87661

== ENCOUNTER → 2025-08-20 | Outpatient (CLI) | payer OTHER, SELFPAY ==
--- OUTSIDE RECORDS SUMMARY | 2025-08-20 11:59 | XMS RPT_ITS | CCD ---
Author Organization [facility] Care Team Providers Care Sewer Cleaner Name Role Phone Sunil Kenney Primary Care Provider Julius Hinds PA-C Unavailable [phone] Dr. Felix Ovalle Primary Care Provider SUSHIL Naranjo Attending Provider [phone] Dr. Felix Ovalle Referring Provider SUSHIL Patterson Attending Provider Dr. Xavier Ovalle MD Primary Care Provider Aki Mcdonald Attending Provider Aki Mcdonald Referring Provider Jay Naranjo Attending Provider Dr. Xavier Ovalle MD Referring Provider Evgeny LEVY-CJaida Attending Provider Dr. Xavier Ovalle MD Attending Provider Ru Overton MD Unavailable NONE, NONE Unavailable Unavailable Xavier Ovalle MD Unavailable Dr. Xavier Ovalle MD Primary Care Physicia n Jay Naranjo Attending Physician Evgeny LEVY-CJaida Attending Physician Dr. Xavier Ovalle MD Attending Physician Assessment, Health Risk Attending Physician Unav ailable Assessment, Health Risk Referring Provider Unava ilable Tian MELO, Dr. Ru Huerta Attending Physician Tian MELO, Dr. Ru Huerta Referring Provider Sophy LEVY-CRuma Attending Physician [phone] Kleber MONTAÑO, Juan Pablo Unavailable [place], [facility] Unavailable Jaida Pepper Attending Unavailable Ranney, [facility] Primary [facility] Unavailable Ranney, Christopher Referring Unavailable [facility] Ranney, Christopher Attending Unavailable Ranney, [facility] Unavailable Assessment, Health Risk Attending Unavaila ble Assessment, Health Risk Referring Unavaila ble Ranney, [facility] Primary Care Unavailable Ru Overton Attending Unavailable Ru Overton Referring Unavailable Ranney, Christopher Primary Care Unavailable Pedroney, Christbrissa Attending Unavailable Ranney, Christopher Referring Unavailable Aki Hall Attending Unavailable Aki Hall Referring Unavailable Ranney, Christopher Primary Care Unavailable Ranney, Christopher Primary Care Unavailable Ranney, Christsandyer Attending Unavailable Ranney, Christopher Referring Unavailable [facility], [facility] Unavailable Jay Naranjo Attending Unavailable Ranney, [facility] Primary Care Unavailable Ranney, Christopher Primary Care Unavailable Ruma Beckett Attending Unavailable Ranney, Christopher Referring Unavailable Ranney, Christopher Referring Unavailable [facility], [facility] Unavailable Hudson Colby Attending Unavailable Allergies Allergy Classification Reported Allergen(s) Allergy Type Date of Onset Reaction(s) Facility (14 sources) Codeine Drug Allergy 009 GI Upset, Gastrointestinal [facility] (4 sources) Amoxicillin / Clavulanate Drug Allergy [facility] Work Phone: (1 source) Codeine Drug Allergy [facility] Work Phone: (4 sources) House dust mite; Translations: [DUST MITES] allergy to substance [facility] Work Phone: (4 sources) Mold Extract Drug Allergy [facility] Work Phone: (4 sources) Sulfacetamide Drug Allergy [facility] Work Phone: (4 sources) PLANT POLLEN; Translations: [PLANT POLLEN] allergy to substance hay fever [facility] Work Phone: (10 sources) Amoxicillin; Translations: [amoxicillin trihydrate] Drug Allergy [facility] Comment on above: Elevated liver enzym es (9 sources) Sulfamethoxazole Drug Allergy Rash [facility] (10 sources) Sulfonamides (Antibiotic); Translations: [Sulfa (Sulfonamide Antibiotics)] Propensity to adverse reactions Mucosal lesions [facility] (9 sources) Trimethoprim Drug Allergy [facility] (10 sources) potassium clavulanate; Translations: [potassium clavulanate] Allergy to substance [facility] Comment on above: Elevated liver enzym es. (1 source) Codeine Drug Allergy 025 [facility] (1 source) Sulfamethoxazole Drug Allergy [facility] (1 source) Trimethoprim Drug Allergy [facility] Medications Current Medications Medication Drug Class(es) Dates Sig (Normalized) Sig (Original) acetaminophen 325 mg / oxyCODONE hydrochloride 5 mg oral tablet (20 sources) Opioid Agonist Start: 05-20-2025 End: 06-07-2025 Percocet 5 mg-325 mg tablet Take 1 tablet by mouth four times a day for pain for 30 days active - Juan Pablo Shahid PA-C, [address] [facility] [address] Impingement syndrome of left shoulder [facility] Start: 04-11-2019 End: 04-23-2019 Oxycodone-Acetaminophen 1 TA BLET tablet Discontinued 1 - 2 {tbl} PO EVERY 6 HOURS NEEDED as needed for Pain 40 6 April 11, 2019 April 16, 2019 12:00am April 23, 2019 12:08am Status post hemorrhoidectomy Other specified postprocedural states Personal history of other diseases of the digestive system Start: 04-11-2019 End: 04-23-2019 take 1 tablet by mouth every six hours as needed Oxycodone-Acetaminophen Discontinued 1 - 2 TABLET PO EVERY 6 HOURS NEEDED 40 6 April 11, 2019 April 22, 2019 11:08pm Start: 03-13-2019 End: 03-17-2019 Oxycodone-Acetaminophen 1 TA BLET tablet Discontinued 1 - 2 {tbl} PO EVERY 6 HOURS NEEDED as needed for Pain 30 4 March 13, 2019 12:00am March 16, 2019 12:00am March 17, 2019 12:08am Postoperative pain Status post hemorrhoidectomy Other acute postprocedural pain Other specified postprocedural states Start: 03-13-2019 End: 03-17-2019 take 1 tablet by mouth every six hours as needed Oxycodone-Acetaminophen Discontinued 1 - 2 TABLET PO EVERY 6 HOURS NEEDED 30 4 March 12, 2019 11:00pm March 16, 2019 11:08pm Start: 03-06-2019 End: 03-11-2019 Oxycodone-Acetaminophen 1 TA BLET tablet Discontinued 1 - 2 {tbl} PO EVERY 4 HOURS NEEDED as needed for Pain 40 5 March 06, 2019 1:08pm March 10, 2019 12:00am March 11, 2019 12:08am Postoperative pain Other acute postprocedural pain Start: 03-06-2019 End: 03-11-2019 take 1 tablet by mouth every four hours as needed Oxycodone-Acetaminophen Discontinued 1 - 2 TABLET PO EVERY 4 HOURS NEEDED 40 5 March 06, 2019 12:08pm March 10, 2019 11:08pm [id number] 200 actuat albuterol 0.09 mg/actuat metered dose inhaler (16 sources) beta2-Adrenergic Agonist Start: 03-15-2025 Albut sharla Sulfate 90 mcg/actuation HFA aerosol inhaler Active 1 NMA INHALATION EVERY 6 HOURS as needed for shortness of breath or wheezing 6.7 0 March 15, 2025 12:00am Complies with drug therapy Start: 10-24-2018 End: 09-29-2020 Albuterol Sulfate (Proair Hf a) 90 mcg/actuation HFA aerosol inhaler Discontinued 2 NMA INHALATION EVERY 6 HOURS as needed for Sob &/Or Wheezing October 24, 2018 1:00am September 29, 2020 1:33pm Start: 10-24-2018 End: 09-29-2020 take 1 puff(s) by inhalation every six hours Albuterol Sulfate (Proair Hfa) 90 mcg/actuation HFA aerosol inhaler Discontinued 2 PUFF INHALATION EVERY 6 HOURS October 24, 2018 12:00am September 29, 2020 12:33pm baclofen 10 mg oral tablet (3 sources) gamma-Aminobutyric Acid-ergic Agonist Start: 07-02-2025 End: 07-12-2025 baclofen 10 mg tablet Take 1 tablet by mouth three times a day as needed for muscle spasms for 10 days May have sedative effect. Do not mix with other [employer] depressants. active - Juan Pablo Shahid PA-C, [address] [facility] [address] Strain of muscle fascia and tendon of right hip subsequent encounter [facility] Start: 05-20-2025 baclofen 10 mg tablet Take 1 tablet by mouth three times a day for muscle spasms for 30 days May have sedative effect. Do not mix with other [employer] depressants. active Juan Pablo Shahid PA-C, [address] [facility] [address] Strain of muscle fascia and tendon of right hip subsequent encounter [facility] Start: 10-23-2021 take 1 tablet by lou every eight hours as needed for muscle spasms BACLOFEN 10 MG TABS Take 1 tablet by mouth every eight hours as needed Take as needed for muscle spasm baclofen [id number] Julius Hinds PA-C cetirizine hydrochloride 10 mg oral capsule (10 sources) Histamine-1 Receptor Antagonist Start: 10-24-2018 take 1 capsule by mouth once daily as needed Cetirizine (Zyrtec) 10 mg capsule Active 10 mg PO DAILY as needed for Allergies October 24, 2018 1:00am Complies with drug therapy Start: 08-28-2009 cetirizine hcl (ZYRTEC 10 MG TAB) Take one(1) tablet daily. as necessary 0 08/28/2009 Active Comment on above: Take one(1) tablet d aily. as necessary estradiol 0.1 mg/ml vaginal cream (1 source) Estrogen Start: 5 Estradiol 0.01 % (0.1 mg/gram) cream Active 0 VAGINAL DAILY 42.5 0 June 14, 2025 12:00am pea sized amount using finger tip method every night x 2 weeks then 2-3 times a week there after. Complies with drug therapy fluconazole 150 mg oral tablet (13 sources) Azole Antifungal Start: take 1 tablet by mouth once Fluconazole 150 mg tablet Active 150 mg PO ONCE 2 0 March 24, 2025 12:00am Complies with drug therapy Start: 05-20-2024 End: 03-15-2025 Fluconazole 150 mg tablet Di scontinued 150 mg PO Every 3 Days 2 0 May 20, 2024 12:00am March 15, 2025 9:15am Take at onset of symptoms, if no improvement repeat in 72 hours ibuprofen 100 mg oral tablet (9 sources) Nonsteroidal Anti-inflammatory Drug Start: 09-29-2020 take 2 tablets by mouth every six hours Ibuprofen 100 mg tablet Active 200 mg PO EVERY 6 HOURS September 29, 2020 1:00am Complies with drug therapy Start: 09-29-2020 take 200 mg by mouth every six hours Ibuprofen Active 200 MG PO EVERY 6 HOURS September 29, 2020 12:00am naproxen 500 mg oral tablet (3 sources) Nonsteroidal Anti-inflammatory Drug Start: 05-20-2025 Naprosyn 500 mg tablet Take 1 tablet by mouth once a day active Juan Pablo Shahid PA-C, [address] [facility] [address] Impingement syndrome of left shoulder [facility] Start: 10-21-2021 End: 11-20-2021 take 1 tablet by mouth once NAPROXEN 250 MG TABS Take 1 tablet by mouth every twelve hours naproxen [id number] Julius Hinds PA-C ondansetron 8 mg oral tablet (3 sources) Serotonin-3 Receptor Antagonist Start: 05-20-2025 ondansetron HCl 8 mg tablet Take 1 tablet by mouth every eight hours for nausea for nausea active Juan Pablo Shahid PA-C, [address] [facility] [address] Impingement syndrome of left shoulder [facility] Start: 10-21-2021 ONDANSETRON HC L 4 MG TABS Take 1 tablet by mouth every eight hours as needed May take up to 2 tablets as needed. ondansetron hcl [id number] Julius Hinds PA-C sertraline 100 mg oral tablet (13 sources) Serotonin Reuptake Inhibitor Start: 08-28-2009 End: 03-24-2025 take 1 tablet by mouth once daily Zoloft 100 mg tablet 1 tablet by mouth once a day active Rosalie Diaz LPN [facility] Comment on above: Take one(1) tablet d aily. Completed/Discontinued Medications Medication Drug Class(es) Dates Sig (Normalized) Sig (Original) acetaminophen 325 mg / HYDROcodone bitartrate 5 mg oral tablet (9 sources) Opioid Agonist Start: 12-01-2017 End: 10-24-2018 Hydrocodone-Acetami nophen 1 TABLET tablet Discontinued 1 - 2 {tbl} PO EVERY 4 HOURS NEEDED as needed for Pain 4 December 01, 2017 1:00am October 24, 2018 10:51am Right flank pain Unspecified abdominal pain Start: 12-01-2017 End: 10-24-2018 take 1 tablet by mouth every four hours as needed Hydrocodone-Acetaminophen Discontinued 1 - 2 TABLET PO EVERY 4 HOURS NEEDED 4 December 01, 2017 12:00am October 24, 2018 9:51am amoxicillin 500 mg oral capsule (6 sources) Penicillin-class Antibacterial Start: 03-24-2025 End: 03-31-2025 take 1 capsule by mouth three times daily Amoxicillin 500 mg capsule Discontinued 500 mg PO THREE TIMES A DAY 7 March 24, 2025 12:00am March 30, 2025 12:00am March 31, 2025 12:08am azithromycin 250 mg oral tablet (14 sources) Macrolide Antimicrobial Start: 08-31-2024 End: 03-24-2025 take 2-5 tablets by mouth once daily Azithromycin (Zithromax Z-Lennox) 250 mg tablet Discontinued 0 PO .COMPLEX 6 0 March 15, 2025 12:00am March 24, 2025 11:19am take 500 mg today (day 1), then 250 mg for 4 days (days 2-5) PO cephalexin 500 mg oral capsule (16 sources) Cephalosporin Antibacterial Start: 05-20-2024 End: 05-25-2024 take 1 capsule by mouth every twelve hours Cephalexin 500 mg capsule Discontinued 500 mg PO Q12H 10 5 0 May 20, 2024 12:00am May 24, 2024 12:00am May 25, 2024 12:03am Start: 11-26-2021 End: 10-25-2022 take 1 capsule by mouth every eight hours Cephalexin 500 mg capsule Discontinued 500 mg PO Q8H 21 0 November 26, 2021 1:00am October 25, 2022 10:52am doxycycline hyclate 100 mg oral tablet (20 sources) Tetracycline-class Drug Start: 10-25-2022 End: 05-20-2024 take 1 tablet by mouth twice daily Doxycycline Hyclate 100 mg tablet Discontinued 100 mg PO TWICE A DAY 20 0 October 25, 2022 1:00am May 20, 2024 11:18am Acute bronchitis Acute bronchitis, unspecified Start: 09-14-2022 End: 09-24-2022 take 1 capsule by mouth twice daily Doxycycline Hyclate 100 mg capsule Discontinued 100 mg PO TWICE A DAY 20 10 0 September 14, 2022 1:00am September 23, 2022 1:00am September 24, 2022 1:04am Acute sinusitis, unspecified Start: 12-24-2021 End: 10-25-2022 take 1 capsule by mouth twice daily Doxycycline Monohydrate 100 mg capsule Discontinued 100 mg PO TWICE A DAY 20 0 December 24, 2021 12:00am October 25, 2022 10:53am hydrocortisone 25 mg/ml topical cream (18 sources) Corticosteroid Start: 03-24-2019 End: 07-22-2020 Hydrocortisone (Anusol-Hc) 2.5 % cream with perineal applicator Discontinued 1 NMA TOPICAL 2 to 3 times per day as needed for hemorrhoids 30 0 March 24, 2019 7:58am July 22, 2020 8:16am Start: 01-06-2019 End: 03-24-2019 Hydrocortisone (Anusol-Hc) 2 .5 % cream with perineal applicator Discontinued 1 NMA RC 1 to 2 times per day as needed for hemorrhoids 30 0 January 06, 2019 12:00am March 24, 2019 7:59am Hydrocortisone 2.5 % cream w ith applicator (7 sources) Start: 10-24-2018 End: 07-22-2020 Hydrocortisone 2.5 % cream w ith applicator Discontinued 1 % TOPICAL NEEDED as needed for Pain 0 October 24, 2018 1:00am July 22, 2020 8:16am Start: 10-24-2018 End: 07-22-2020 Hydrocortisone 2.5 % cream w ith applicator Discontinued 1 % TOPICAL NEEDED as needed for Pain October 24, 2018 1:00am July 22, 2020 8:16am hydrocortisone 2.5 % rectal cream with applicator (2 sources) Start: 10-24-2018 End: 07-22-2020 hydrocortisone 2.5 % rectal cream with applicator Discontinued 1 % TOPICAL NEEDED October 24, 2018 12:00am July 22, 2020 7:16am Start: 10-24-2018 End: 07-22-2020 hydrocortisone 2.5 % rectal cream with applicator Discontinued 1 % TOPICAL NEEDED October 24, 2018 1:00am July 22, 2020 8:16am methylPREDNISolone 4 mg oral tablet (15 sources) Corticosteroid Start: 08-31-2024 End: 09-06-2024 take 1 tablet by mouth once Methylprednisolone (Medrol (Lennox)) 4 mg tablets,dose pack Discontinued 4 mg PO per package directions 21 6 0 August 31, 2024 1:00am September 05, 2024 1:00am September 06, 2024 1:09am Start: 10-25-2022 End: 05-20-2024 take 1 tablet by mouth once Methylprednisolone (Medrol (Lennox)) 4 mg tablets,dose pack Discontinued 0 PO per package directions 21 0 October 25, 2022 1:00am May 20, 2024 11:18am Acute bronchitis Acute bronchitis, unspecified PO PER PKG DIR metoprolol tartrate 50 mg oral tablet (1 source) beta-Adrenergic Stevo Start: 08-28-2009 metoprolol tartrate(LOPRESSOR 50 MG TAB) Take one(1) tablet daily. 0 08/28/2009 Active Comment on above: Take one(1) tablet d aily. omeprazole 20 mg delayed release oral tablet (10 sources) Proton Pump Inhibitor Start: 08-28-2009 End: 09-29-2020 take 1 tablet by mouth once daily Omeprazole Magnesium 20 MG tablet,delayed release (DR/EC) Discontinued 20 mg PO DAILY February 15, 2019 12:00am September 29, 2020 1:33pm phenazopyridine hydrochloride 100 mg oral tablet (7 sources) Start: 05-20-2024 End: 03-24-2025 take 1 tablet by mouth three times daily at mealtime for pain Phenazopyridine (Pyridium) 100 mg tablet Discontinued 100 mg PO THREE TIMES A DAY as needed for pain 30 0 May 20, 2024 12:00am March 24, 2025 11:32am Take with food tiZANidine 2 mg oral capsule (9 sources) Central alpha-2 Adrenergic Agonist Start: 07-22-2020 End: 03-24-2025 take 1 capsule by mouth three times daily as needed for muscle spasms Tizanidine 2 mg capsule Discontinued 2 mg PO THREE TIMES A DAY as needed for Spasms July 22, 2020 12:00am March 24, 2025 11:33am zolpidem tartrate 5 mg oral tablet (9 sources) gamma-Aminobutyric Acid-ergic Agonist Start: 10-24-2018 End: 07-22-2020 take 1 tablet by mouth at bedtime as needed for sleep Zolpidem (Ambien) 5 mg tablet Discontinued 5 mg PO AT BEDTIME as needed for Sleep October 24, 2018 1:00am July 22, 2020 8:17am Problems Active Problems Problem Classification Problem Date Documented Da te Episodic/Chronic Anxiety disorders (9 sources) Anxiety; Translations: [Anxiety disorder, unspecified] 03-08-2019 Chronic Hemorrhoids (9 sources) Hemorrhoids; Translations: [Unspecified hemorrhoids] 03-08-2019 Episodic Immunizations and screening for infectious disease (8 sources) Contact with and (suspected) exposure to other viral communicable diseases; Translations: [Contact with or suspected exposure to other viral communicable disease] 09-14-2022 Episodic Mood disorders (9 sources) Depressive disorder; Translations: [Depression] 03-08-2019 Chronic Osteoarthritis (3 sources) Arthritis of acromioclavicular joint; Translations: [Primary osteoarthritis, left shoulder] Onset: 12-27-2024 Chronic Other bone disease and musculoskeletal deformities (18 sources) Segmental and somatic dysfunction; Translations: [Segmental and somatic dysfunction of lumbar region] 11-11-2020 Episodic Other gastrointestinal disorders (9 sources) Constipation; Translations: [Constipation, unspecified] 03-08-2019 Episodic Other screening for suspected conditions (not mental disorders or infectious disease) (1 source) Encounter for screening mammogram for malignant neoplasm of breast; Translations: [Encounter for screening mammogram for malignant neoplasm of breast] Onset: Episodic Other upper respiratory disease (8 sources) Respiratory tract congestion; Translations: [Nasal congestion] 10-25-2022 Episodic Other upper respiratory infections (17 sources) Acute sinusitis; Translations: [Acute sinusitis, unspecified] 11-26-2021 Episodic Otitis media and related conditions (10 sources) Perforation of tympanic membrane; Translations: [Unspecified perforation of tympanic membrane, unspecified ear] 03-24-2025 Episodic Skin and subcutaneous tissue infections (10 sources) Cellulitis of toe; Translations: [Cellulitis of right toe] Episodic Spondylosis; intervertebral disc disorders; other back problems (9 sources) Prolapsed lumbar intervertebral disc; Translations: [Other intervertebral disc displacement, lumbar region] 11-11-2020 Chronic Comment on above: L4/L5 Spondylosis; intervertebral disc disorders; other back problems (9 sources) Backache; Translations: [Dorsalgia, unspecified] 11-28-2020 Episodic Thyroid disorders (9 sources) Thyroid nodule; Translations: [Nontoxic single thyroid nodule] 03-08-2019 Chronic Viral infection (9 sources) Disease caused by 2019-nCoV; Translations: [COVID-19] 10-12-2020 Episodic Past or Other Problems Problem Classification Problem Date Documented Da te Episodic/Chronic Acute bronchitis (16 sources) Acute bronchitis; Translations: [Acute bronchitis, unspecified] Onset: 03-15-2025 10-25-2022 Episodic Other connective tissue disease (3 sources) Biceps tendinitis; Translations: [Bicipital tendinitis, left shoulder] Onset: 12-27-2024 12-27-2024 Episodic Other connective tissue disease (3 sources) Impingement syndrome of left shoulder region; Translations: [Impingement syndrome of left shoulder] Onset: 12-27-2024 12-27-2024 Episodic Other non-traumatic joint disorders (4 sources) Other specified joint disorders, right hip; Translations: [Other specified disorders of joint, pelvic region and thigh] Onset: 09-12-2021 09-12-2021 Episodic Sprains and strains (4 sources) Strain of muscle, fascia and tendon of right hip, subsequent encounter; Translations: [Other specified aftercare] Onset: 09-12-2021 09-12-2021 Episodic Unclassified (1 source) Problem Urinary tract infections (3 sources) Recurrent urinary tract infection; Translations: [Urinary tract infection, site not specified] Onset: 04-19-2025 06-14-2025 Episodic Results Test Name Value Interpretation Reference Range Facility Relevant diagnostic tests/la boratory data Narrativeon 08-07-2025 Fall risk assessment no [facility] Work Phone: MEDS REVIEW Documentation of current medications (procedure) [facility] Work Phone: MEDS REVIEWD Medications reviewed with changes [facility] Work Phone: Relevant diagnostic tests/la boratory data Narrativeon 07-06-2025 Fall risk assessment no [facility] Work Phone: MEDS REVIEW Documentation of current medications (procedure) [facility] Work Phone: MEDS REVIEWD Medications reviewed without changes [facility] Work Phone: Director Case Management Office Visit Reporton 06-14-2025 Director Case Management Office Visit Report 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 Hand Required: No Is patient in pain?: No Allergies sulfamethoxazole (From Bactrim) Allergy (Unknown, Verified 06/14/25 14:26) Rash trimethoprim (From Bactrim) Allergy (Unknown, Verified 06/14/25 14:26) Rash amoxicillin trihydrate (From Augmentin) Allergy (Verified 06/14/25 14:26) Other potassium clavulanate (From Augmentin) Allergy (Verified 06/14/25 14:26) Other codeine Adverse Reaction (Verified 06/14/25 14:26) Vomiting Sulfa (Sulfonamide Antibiotics) Adverse Reaction (Verified 06/14/25 14:26) Mucosal lesions Medications ???Medication ???Instructions ???Recorded ???Confirmed ???Type cetirizine 10 mg capsule (Zyrtec) 10 mg PO DAILY PRN Allergies 09/2806/14/25 History ibuprofen 100 mg tablet 200 mg PO Q6H 09/29/20 06/14/25 Hi story albuterol sulfate 90 mcg/actuation 1 inh inhalation Q6H PRN shortne ss 03/15/25 06/14/25 Rx aerosol inhaler of breath or wheezing #6.7 grams fluconazole 150 mg tablet 150 mg PO ONCE #2 tabs 03/24/25 Rx estradiol 0.01% (0.1 mg/gram) See Rx Instructions vaginal DAILY 06/14/25 06/14/25 Rx vaginal cream #42.5 grams Post menopausal: No Patient : No : No Control Method: [facility] Medical History Cellulitis of great toe, right Thyroid disease High cholesterol Gastric reflux Non-smoker History of pain when walking History of irregular heartbeat Rectal fissure Thyroid nodule Hemorrhoids Constipation Anxiety Depression Surgical History History of cardiac catheterization Status post hemorrhoidectomy Hx of bilateral breast reduction surgery History of repair of rectocele Hx of hysterectomy History of tonsillectomy and adenoidectomy Family History Mother Heart disease Father Heart disease High cholesterol Grandmother Myocardial infarction Social History (Updated 06/14/25 @ 14:21 by Katelyn Lopes) household members: spouse and children housing: house current occupational status: employed 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 She here to establish; reports she has had 2 UTI's since September. She reports she has had a new partner; is sexually active with him. Had STD testing which all came back negative. Not sure if correlated to new partner. Does have history of hysterectomy (adenomyosis). 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 Last PAP: prior to hyst History of abnormal PAP: none Last mammogram: 2022; normal. History of abnormal mammogram: none Colon cancer screenin; normal. Other preventative health care screenings: Dr. Ovalle; PCP. Female Reproductive History Questions: metrorrhagia: No, sexually active: Yes, dyspareunia: No and PCB: No ROS Const Constitutional: Denies chills, fatigue, fever(s), headache(s) or weight loss Eyes Eyes: Denies change in vision ENT ENT: Denies dizziness Cardio Card: Denies chest pain at rest or palpitations Resp Resp: Denies cough or dyspnea GI GI: Denies abdominal pain, constipation or nausea : Denies difficulty voiding, dysuria, hematuria, nipple discharge, pelvic pain, prolapse symptoms, urinary incontinence, vaginal discharge, vaginal dryness, vaginal odor or vaginal pruritus Skin Skin/Breast: Denies alopecia, rash, breast mass, breast pain, breast skin changes or nipple discharge Neuro Neuro: Denies dizziness Psych Psych: Denies anxiety or depression (more content not included)... Normal [facility] Inital Evaluation (1) - PTon 06-11-2025 Inital Evaluation (1) - PT [facility] Physical Therapy [facility] [address] [place] [address] / REHABILITATION SERVICES INITIAL EVALUATION MR#: [id number] Acct: [id number] Name: CARLOS MORIN Rep #: [id number] : 1975 50 From: Chris Conde DPT, OCS, CSCS Referring Dr.: Dr. Ru Overton MD Status: REG RCR Insurance: [employer]/[facility] SELF PAY INSURANCE Patient's Visit Information Visit Information Visit Information: CARLOS MORIN is a 50 year old F referred to Physical Therapy by Dr. Ru Overton MD with a diagnosis of biceps tendinitis L shoudler s/p arthro biceps tenodesis and clean 05/21. Date of Evaluation: 06/11/25 Physical Therapist: Chris Conde DPT, OCS, CSCS Visit Plan Frequency: 2-3x /Week Duration: 3 Months Plan: 2-3x/week as needed for 8-2 weeks biceps tenodesis perfomred so no resitatnce her until June, AROM OK shoulder PROM AAROM, aROM, iso and resistancee for RC and scapula within biceps precautions. Progress HEP. PROM and anteerior scar massage. ice as needed, progress home function. Subjective Subjective: L shouldr scope clean out and biceps tenodesis. Cleaned up OA. 05/21 3 weeks ago. Been in sling since. Saw doc last week adn can wean out. Wear it at night and in public. Gets sore without sling. Precautions: biceps. Sleep is 5/10 if it spasms. insidious onset and painful for > 1 yr, it got stuck. Basic ADL: all I but modified. Fucntional L arm without pain. 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 Pilates prior and wants to get back. Pain L shoulder: Pain Intensity (Out of 10): 2 Pain Intensity Range: 0 and 2 Comment: spasms at night. Objective Objective: Sling donned and doffed I today. L arm. Relaxes l arm only when cued and then get full ext at elbow. Incisions are 3 arthroscopic and healed well, mild scarring only anterior incision. No redness, heat or swelling. PROM L shoulder 120 flexion 90 abd, 35 er, AAROM stick 130 flexion, 38 er. elbow aROM full L. Hesitant at end range. wrist adn hand normal B. Sensation UE WNL to gross light touch. strength elbow not testeed, shoulder contracts with hesitancy adn pain in rotations, flexion not tested. On L Balance/Special Test Scores Quick DASH Score: 56.8175 Goals Goal 1:: ST: full funcitonal fleexion adn er and IR to 150, 60 and L5 on l side Goal Time Frame: 2-4 Weeks Goal 2:: sleep without interruption at night from pain/spasm Goal Time Frame: 2-4 Weeks Goal 3:: L shoulder 99% back to normal movement and working without increased pain. Goal Time Frame: 8-12 Weeks Goal 4:: quickdash score 15 or less Goal Time Frame: 8-12 Weeks Goal 5:: I appropriate mgmt of condition, HEP Goal Time Frame: 8-12 Weeks Goal 6:: ST: dress without limitations Goal Time Frame: 4-6 Weeks Rehabilitation Potential Rehabilitation Potential: Good Anticipated Interventions Patient/Client Instruction: Educate patient on: Condition and Plan of Care For the Purpose of:: To decrease pain, To increase ROM, To improve muscle performance and motor function, To increase tolerance to activity/condition/po sition, To improve ability of physical actions for home/community/work/l eisure and To improve gait and locomotor functions Therapeutic Exercise to Include: Strength training, Postural training, Flexibilty training, Passive ROM and Active ROM For the Purpose of:: To decrease pain, To increase ROM, To improve nutrient delivery to tissue, To improve muscle performance and motor function and To increase tolerance to activity/condition/po sition Manual Therapy Techniques to Include: Scar massage, Passive ROM and Soft tissue mobilization For the Purpose of:: To decrease pain, To increase ROM and To improve nutrient delivery to tissue Cryotherapy (ice pack, ice massage): Yes For the Purpose of:: To improve muscle performance and motor function and To increase tolerance to activity/condition/po sition Text: Thank you for the opportunity to evaluate your patient. For Medicare and Medicare HMO plans, please review the plan of care and approve it. It will need to be FAXED BACK to us at [phone] for Medicare purposes. For Medicare only, by signing this I certify the plan of care. Please let me know if there are questions or concerns regarding this plan of care. Physician Signature: Date : 06/11/25 1048 CC: Dr. Xavier Ovalle MD; Dr. Ru Overton MD EBG Signed Normal [facility] Relevant diagnostic tests/la boratory data Narrativeon 06-05-2025 Fall risk assessment no FELICITY [employer] Work Phone: MEDS REVIEW Done [employer] Work Phone: MEDS REVIEWD Medications reviewed without changes [employer] Work Phone: Absolute lymphocyte countOrd ered By: HEALTH ASSESSMENT on 05-19-2025 Lymphocytes Auto (Unsp spec) [#/Vol] 1.85 10*3/uL 0.83-4.51 [facility] Absolute neutrophil countOrd ered By: HEALTH ASSESSMENT on 05-19-2025 Neutrophils (Bld) [#/Vol] 3.8 10*3/uL 2.0-7.7 [facility] Absolute nucleated red blood cell countOrdered By: HEALTH ASSESSMENT on 05-19-2025 Nucleated RBC (Bld) [#/Vol] 0.00 10*3/uL 0-5 [facility] Anion gap in Serum or Plasma Ordered By: HEALTH ASSESSMENT on 05-19-2025 Anion gap [Moles/Vol] 13 mmol/L 5- [facility] BUN/creatinine ratioOrdered By: HEALTH ASSESSMENT on 05-19-2025 Urea nitrogen/Creatinine [Mass ratio] 16.2 mg/mg 10- [facility] Comment on above: Previous reported re sult: 15.5 RATIOEdited by: AUTOINS on 05/19/25:1207 AMENDED REPORT 05/19/25 1207 BUN/CRE previously reported as: 15.5 RATIO Bilirubin Test strip Ql (U)O rdered By: HEALTH ASSESSMENT on 05-19-2025 Bilirubin Ql (U) Negative Negative [facility] Bilirubin directOrdered By: HEALTH ASSESSMENT on 05-19-2025 Bilirubin.direct [Mass/Vol] 0.19 mg/dL 0.00-0.30 [facility] Bilirubin, totalOrdered By: HEALTH ASSESSMENT on 05-19-2025 Bilirubin [Mass/Vol] 0.47 mg/dL 0.00-1.30 [facility] Comment on above: Previous reported re sult: 0.46 mg/dLEdited by: AUTOINS on 05/19/25:1207 AMENDED REPORT 05/19/25 1207 T BILI previously reported as: 0.46 mg/dL Blood band neutrophil count as percentage of total leukocytesOrdered By: HEALTH ASSESSMENT on 05-19-2025 Band form neutrophils/100 WBC (Bld) 59.8 % 47-70 [facility] CBC, Employeeon 05-19-2025 Absolute Lymph 1.85 X10 3/uL Normal 0.83-4.51 [facility] Comment on above: Performed By: #### L 500.2900, L400.0100, L100.0200 #### [facility] [address] [place], [address] Absolute Neut 3.8 X10 3/uL Normal 2.0-7.7 [facility] Comment on above: Performed By: #### L 500.2900, L400.0100, L100.0200 #### [facility] [address] [place], [address] Basophils/100 WBC (Bld) 0.3 % Normal 0-1 [facility] Comment on above: Performed By: #### L 500.2900, L400.0100, L100.0200 #### [facility] [address] [place], [address] Eosinophils/100 WBC (Bld) 1.6 % Normal 0-5 [facility] Comment on above: Performed By: #### L 500.2900, L400.0100, L100.0200 #### [facility] [address] [place], [address] Erythrocyte distribution width (RBC) [Ratio] 12.3 % Normal 11.6-14.6 [facility] Comment on above: Performed By: #### L 500.2900, L400.0100, L100.0200 #### [facility] [address] [place], [address] Hematocrit (Bld) [Volume fraction] 40.5 % Normal 37-47 [facility] Comment on above: Performed By: #### L 500.2900, L400.0100, L100.0200 #### [facility] [address] [place], [address] Hemoglobin (Bld) [Mass/Vol] 13.6 g/dL Normal 12.0-15.0 [facility] Comment on above: Performed By: #### L 500.2900, L400.0100, L100.0200 #### [facility] [address] [place], [address] Lymphocytes/100 WBC (Bld) 29.1 % Normal 19-41 [facility] Comment on above: Performed By: #### L 500.2900, L400.0100, L100.0200 #### [facility] [address] [place], [address] MCH (RBC) [Entitic mass] 30.2 pg Normal 27.0-32.0 [facility] Comment on above: Performed By: #### L 500.2900, L400.0100, L100.0200 #### [facility] [address] [place], [address] MCHC (RBC) [Mass/Vol] 33.6 g/dL Normal 32-36 [facility] Comment on above: Performed By: #### L 500.2900, L400.0100, L100.0200 #### [facility] [address] [place], [address] MCV (RBC) [Entitic vol] 90.0 fL Normal 81-99 [facility] Comment on above: Performed By: #### L 500.2900, L400.0100, L100.0200 #### [facility] [address] [place], [address] Monocytes/100 WBC (Bld) 9.0 % Normal 0-10 [facility] Comment on above: Performed By: #### L 500.2900, L400.0100, L100.0200 #### [facility] [address] [place], [address] Neutrophils/100 WBC (Bld) 59.8 % Normal 47-70 [facility] Comment on above: Performed By: #### L 500.2900, L400.0100, L100.0200 #### [facility] [address] [place], [address] NRBC # 0.00 10 3/uL Normal 0-5 [facility] Comment on above: Performed By: #### L 500.2900, L400.0100, L100.0200 #### [facility] [address] [place], [address] Nucleated RBC (Bld) [#/Vol] 0 10*3/uL Normal 0-5 [facility] Comment on above: Performed By: #### L 500.2900, L400.0100, L100.0200 #### [facility] [address] [place], [address] Platelet mean volume (Bld) [Entitic vol] 10.5 fL Normal 6.2-12.0 [facility] Comment on above: Performed By: #### L 500.2900, L400.0100, L100.0200 #### [facility] [address] [place], [address] Platelets (Bld) [#/Vol] 209 10*3/uL Normal 150-450 [facility] Comment on above: Performed By: #### L 500.2900, L400.0100, L100.0200 #### [facility] [address] [place], [address] RBC (Bld) [#/Vol] 4.50 10*6/uL Normal 4.2-5.4 [facility] Comment on above: Performed By: #### L 500.2900, L400.0100, L100.0200 #### [facility] [address] [place], [address] RDW SD 40.6 fl Normal 35.1-43.9 [facility] Comment on above: Performed By: #### L 500.2900, L400.0100, L100.0200 #### [facility] [address] [place], [address] WBC (Bld) [#/Vol] 6.4 10*3/uL Normal 4.4-11.0 [facility] Comment on above: Performed By: #### L 500.2900, L400.0100, L100.0200 #### [facility] [address] [place], [address] Calculated very low density lipoprotein (VLDL) cholesterol measurementOrdered By: HEALTH ASSESSMENT on 05-19-2025 Calculated very low density lipoprotein (VLDL) cholesterol measurement 17 mg/dL 5-40 [facility] Carbon dioxide, total [Moles /volume] in Central venous bloodOrdered By: HEALTH ASSESSMENT on 05-19-2025 CO2 [Moles/Vol] 22.2 mmol/L 21.0-32.0 [facility] Comment on above: Previous reported re sult: 22.9 mmol/LEdited by: AUTOINS on 05/19/25:1207 AMENDED REPORT 05/19/251206 CO2 previously reported as: 22.9 mmol/L Chloride assayOrdered By: SHIVA ALTH ASSESSMENT on 05-19-2025 Chloride [Moles/Vol] 105 mmol/L 98-108 [facility] Comment on above: Previous reported re sult: 106 mmol/LEdited by: AUTOINS on 05/19/25:1207 AMENDED REPORT 05/19/251206 CL previously reported as: 106 mmol/L Employee Profileon LDH 155 U/L Normal 84-246 [facility] Comment on above: Performed By: #### L 500.2900, L400.0100, L100.0200 ####[facility] [address] [place], [address] Phosphate [Mass/Vol] 3.0 mg/dL Normal 2.7-4.5 [facility] Comment on above: Performed By: #### L 500.2900, L400.0100, L100.0200 ####[facility] [address] [place], [address] URIC 6.4 mg/dL High 2.6-6.0 [facility] Comment on above: Result Comment: The drugs N-Acetylcysteine and Metamizole may falsely depress this assay. Performed By: #### L 500.2900, L400.0100, L100.0200 ####[facility] [address] [place], [address] Erythrocyte distribution wid th ratioOrdered By: HEALTH ASSESSMENT on 05-19-2025 Erythrocyte distribution width (RBC) [Ratio] 12.3 % 11.6-14.6 [facility] Erythrocyte distribution wid th standard deviationOrdered By: HEALTH ASSESSMENT on 05-19-2025 Erythrocyte distribution width (RBC) [Ratio] 40.6 fl 35.1-43.9 [facility] Glomerular filtration rate ( GFR) estimation/1.73 sq m using serum, plasma, or whole bOrdered By: HEALTH ASSESSMENT on 05-19-2025 GFR/1.73 sq M.predicted among non-blacks MDRD (S/P/Bld) [Vol rate/Area] 89 mL/min/{1.73_m2} >60 [facility] Comment on above: mL/min/1.73m2 CKD-EP I Creatinine Equation (2020) Hematocrit Auto (Bld) [Volum e fraction]Ordered By: HEALTH ASSESSMENT on 05-19-2025 Hematocrit (Bld) [Volume fraction] 40.5 % 37-47 [facility] Hemoglobin measurementOrdere d By: HEALTH ASSESSMENT on 05-19-2025 Hemoglobin (Bld) [Mass/Vol] 13.6 g/dL 12.0-15.0 [facility] Ketones Test strip Ql (U)Ord ered By: HEALTH ASSESSMENT on 05-19-2025 Ketones Ql (U) Negative Negative [facility] LDL calc ser/plasOrdered By: HEALTH ASSESSMENT on 05-19-2025 Cholesterol in LDL [Mass/Vol] 114 mg/dL [facility] Comment on above: Jnsvhjkxag=076-981 m g/dL & Higher Jxcw=104 mg/dL or greaterFriedwald Equation for LDL-C Laboratory - Chemistry and C hemistry - challengeOrdered By: HEALTH ASSESSMENT on 05-19-2025 AST [Catalytic activity/Vol] 14 U/L <32 [facility] Lactate dehydrogenase (LDH) measurementOrdered By: HEALTH ASSESSMENT on 05-19-2025 LDH [Catalytic activity/Vol] 155 U/L 84-246 [facility] MCV (mean corpuscular volume ) determinationOrdered By: HEALTH ASSESSMENT on 05-19-2025 MCV (RBC) [Entitic vol] 90.0 fL 81-99 [facility] Mean corpuscular hemoglobin (MCH) determinationOrdered By: HEALTH ASSESSMENT on 05-19-2025 MCH (RBC) [Entitic mass] 30.2 pg 27.0-32.0 [facility] Mean corpuscular hemoglobin concentration (MCHC) determinationOrdered By: HEALTH ASSESSMENT on 05-19-2025 MCHC (RBC) [Mass/Vol] 33.6 g/dL 32-36 [facility] Mean platelet volume determi nationOrdered By: HEALTH ASSESSMENT on 05-19-2025 Platelet mean volume (Bld) [Entitic vol] 10.5 fL 6.2-12.0 [facility] Nitrite Test strip Ql (U)Ord ered By: HEALTH ASSESSMENT on 05-19-2025 Nitrite Ql (U) Negative Negative [facility] Nucleated red blood cell per centageOrdered By: HEALTH ASSESSMENT on 05-19-2025 Nucleated RBC/100 WBC (Bld) [Ratio] 0 % 0-5 [facility] Platelet countOrdered By: HE ALTH ASSESSMENT on 05-19-2025 Platelets (Bld) [#/Vol] 209 10*3/uL 150-450 [facility] Potassium measurement (mass/ volume)Ordered By: HEALTH ASSESSMENT on 05-19-2025 Potassium (Unsp spec) [Mass/Vol] 4.2 mmol/L 3.3-5.1 [facility] Protein Test strip Ql (U)Ord ered By: HEALTH ASSESSMENT on 05-19-2025 Protein Ql (U) Negative Negative [facility] RBC Auto (Bld) [#/Vol]Ordere d By: HEALTH ASSESSMENT on 05-19-2025 RBC (Bld) [#/Vol] 4.50 10*6/uL 4.2-5.4 [facility] Screening total cholesterol/ high density lipoprotein (HDL) cholesterol ratioOrdered By: HEALTH ASSESSMENT on 05-19-2025 Cholesterol.total/[place] sterol in HDL [Mass ratio] 3.22 {ratio} [facility] Serum creatinine measurement (mass/volume)Ordered By: HEALTH ASSESSMENT on 05-19-2025 Creatinine [Mass/Vol] 0.80 mg/dL 0.70-1.20 [facility] Comment on above: Previous reported re sult: 0.81 mg/dLEdited by: AUTOINS on 05/19/25:1207 AMENDED REPORT 05/19/25 1207 CREAT,SERUM previously reported as: 0.81 mg/dL Serum globulin measurementOr dered By: HEALTH ASSESSMENT on 05-19-2025 Globulin (S) [Mass/Vol] 2.2 g/dL 2.2-4.2 [facility] Comment on above: Previous reported re sult: 2.4 g/dLEdited by: FatsomaS on 05/19/25:1207 AMENDED REPORT 05/19/25 1207 GLOB previously reported as: 2.4 g/dL Serum glucose measurement (m ass/volume)Ordered By: HEALTH ASSESSMENT on 05-19-2025 Glucose [Mass/Vol] 81 mg/dL 70-99 [facility] Comment on above: Previous reported re sult: 82 mg/dLEdited by: FatsomaS on 05/19/25:1207 AMENDED REPORT 05/19/25 120 GLU previously reported as: 82 mg/dL Serum or plasma alanine owen otransferase (ALT) measurementOrdered By: HEALTH ASSESSMENT on 05-19-2025 ALT [Catalytic activity/Vol] 8 U/L <35 [facility] Serum or plasma albumin blossom urement (mass/volume)Ordered By: HEALTH ASSESSMENT on 05-19-2025 Albumin [Mass/Vol] 4.3 g/dL 3.5-5.0 [facility] Comment on above: Previous reported re sult: 4.2 g/dLEdited by: FatsomaS on 05/19/25:1207 AMENDED REPORT 05/19/25 120 ALB previously reported as: 4.2 g/dL Serum or plasma albumin/glob ulin mass ratioOrdered By: HEALTH ASSESSMENT on 05-19-2025 Albumin/Globulin [Mass ratio] 1.9 {ratio} 0.9-2.4 [facility] Comment on above: Previous reported re sult: 1.7 RATIOEdited by: FatsomaS on 05/19/25:1207 AMENDED REPORT 05/19/251206 A/G previously reported as: 1.7 RATIO Serum or plasma alkaline zana sphatase measurementOrdered By: HEALTH ASSESSMENT on 05-19-2025 ALP [Catalytic activity/Vol] 61 U/L 35-104 [facility] Serum or plasma calcium blossom urement (mass/volume)Ordered By: HEALTH ASSESSMENT on 05-19-2025 Calcium [Mass/Vol] 9.2 mg/dL 7.6-11.0 [facility] Comment on above: Previous reported re sult: 9.3 mg/dLEdited by: FatsomaS on 05/19/25:1207 AMENDED REPORT 05/19/251206 CA previously reported as: 9.3 mg/dL Serum or plasma cholesterol in HDL measurement (mass/volume)Ordered By: HEALTH ASSESSMENT on 05-19-2025 Cholesterol in HDL [Mass/Vol] 59 mg/dL >40 [facility] Comment on above: National Cholesterol Education Program (NCEP) guidelines:<40 mg/dL: Low HDL-cholesterol (major risk factor for CHD)>= 60 mg/dL: High HDL-cholesterol (negative risk factor for CHD)HDL-cholesterol is affected by a number of factors, e.g. smoking, exercise, hormones, sex and age. Serum or plasma cholesterol measurement (mass/volume)Ordered By: HEALTH ASSESSMENT on 05-19-2025 Cholesterol [Mass/Vol] 191 mg/dL <201 [facility] Comment on above: Cholesterol level, D esirable <200 mg/dLBorderline high cholesterol 200-239 mg/dLHigh cholesterol >=240 mg/dLRecommendations of the NCEP Adult Treatment Panel for the following risk-cutoff thresholds for the [place] population. Serum or plasma urea nitroge n measurement (mass/volume)Ordered By: HEALTH ASSESSMENT on 05-19-2025 Urea nitrogen [Mass/Vol] 13 mg/dL 4-19 [facility] Serum or plasma uric acid me asurement (mass/volume)Ordered By: HEALTH ASSESSMENT on 05-19-2025 Urate [Mass/Vol] 6.4 mg/dL High 2.6-6.0 [facility] Comment on above: The drugs N-Acetylcy steine and Metamizole may falsely depress this assay. Sodium levelOrdered By: HEAL ASSESSMENT on 05-19-2025 Sodium [Moles/Vol] 140 mmol/L 133-145 [facility] Total proteinOrdered By: HEA [facility] ASSESSMENT on 05-19-2025 Protein [Mass/Vol] 6.5 g/dL 5.9-8.4 [facility] Comment on above: Previous reported re sult: 6.7 g/dLEdited by: AUTOINS on 05/19/25:1207 AMENDED REPORT 05/19/25 120 T PROT previously reported as: 6.7 g/dL Triglycerides measurementOrd ered By: HEALTH ASSESSMENT on 05-19-2025 Triglyceride [Mass/Vol] 86 mg/dL <199 [facility] Comment on above: The drugs N-Acetylcy steine and Metamizole may falsely depress this assay. Normal range: <150 mg/dLBorderline High: 150-199 mg/dLHigh: 200-499 mg/dLVery High: >500 mg/dL Urinalysis, Employeeon 05-19 BILIRUBIN URINE Negative Normal Negative [facility] Comment on above: Order Comment: CLEAN CATCH Performed By: #### L 500.2900, L400.0100, L100.0200 ####[facility] [address] [place], [address] Clarity (U) Clear Normal Clear [facility] Comment on above: Order Comment: CLEAN CATCH Performed By: #### L 500.2900, L400.0100, L100.0200 ####[facility] [address] [place], [address] Color (U) Straw Normal Yellow [facility] Comment on above: Order Comment: CLEAN CATCH Performed By: #### L 500.2900, L400.0100, L100.0200 ####[facility] [address] [place], [address] GLUCOSE, UR Normal Normal Normal [facility] Comment on above: Order Comment: CLEAN CATCH Performed By: #### L 500.2900, L400.0100, L100.0200 ####[facility] [address] [place], [address] KETONE UR Negative Normal Negative [facility] Comment on above: Order Comment: CLEAN CATCH Performed By: #### L 500.2900, L400.0100, L100.0200 ####[facility] [address] [place], [address] LEUK ESTERASE Negative Normal Negative [facility] Comment on above: Order Comment: CLEAN CATCH Performed By: #### L 500.2900, L400.0100, L100.0200 ####[facility] [address] [place], [address] Nitrite Ql (U) Negative Normal Negative [facility] Comment on above: Order Comment: CLEAN CATCH Performed By: #### L 500.2900, L400.0100, L100.0200 ####[facility] [address] [place], [address] OCCULT BLOOD-UR Negative Normal Negative [facility] Comment on above: Order Comment: CLEAN CATCH Performed By: #### L 500.2900, L400.0100, L100.0200 ####[facility] [address] [place], [address] pH UR 6.0 Normal 5.0 - 8.0 [facility] Comment on above: Order Comment: CLEAN CATCH Performed By: #### L 500.2900, L400.0100, L100.0200 ####[facility] [address] [place], [address] PROT DIPSTX Negative Normal Negative [facility] Comment on above: Order Comment: CLEAN CATCH Performed By: #### L 500.2900, L400.0100, L100.0200 ####[facility] [address] [place], [address] SP.GR. DIPSTX 1.005 Normal 1.002-1.030 [facility] Comment on above: Order Comment: CLEAN CATCH Performed By: #### L 500.2900, L400.0100, L100.0200 ####[facility] [address] [place], [address] UROBILI Normal Normal Normal [facility] Comment on above: Order Comment: CLEAN CATCH Performed By: #### L 500.2900, L400.0100, L100.0200 ####[facility] [address] [place], [place], [id number] Urine clarityOrdered By: JOSSELIN LT ASSESSMENT on 05-19-2025 Clarity (U) Clear Clear [facility] Urine color determinationOrd ered By: HEALTH ASSESSMENT on 05-19-2025 Color (U) Straw Yellow [facility] Urine glucose detectionOrder ed By: HEALTH ASSESSMENT on 05-19-2025 Glucose Ql (U) Normal mg/dl Normal [facility] Urine leukocyte esterase det ection by dipstickOrdered By: HEALTH ASSESSMENT on 05-19-2025 Leukocyte esterase Test strip Ql (U) Negative Negative [facility] Urine pHOrdered By: HEALTH A SSESSMENT on 05-19-2025 pH (U) 6.0 [pH] 5.0 - 8.0 [facility] Urine specific gravity measu rementOrdered By: HEALTH ASSESSMENT on 05-19-2025 Specific gravity (U) [Rel density] 1.005 1.002-1.030 [facility] Urine urobilinogen measureme ntOrdered By: HEALTH ASSESSMENT on 05-19-2025 Urobilinogen Ql (U) Normal mg/dl Normal [facility] White blood cell (WBC) count Ordered By: HEALTH ASSESSMENT on 05-19-2025 WBC (Bld) [#/Vol] 6.4 10*3/uL 4.4-11.0 [facility] Urine Cultureon 04-15-2025 URC Below infection level. Mixed Gram Positive Organisms York Count 1000-10,000 MIXC Mixed contaminants. Submit a new specimen if indicated. Normal [facility] Comment on above: Performed By: #### L 400, M8200.3000, M1, M82 #### [facility] [address] [place], [address] M8200.2203on 04-13-2025 M8200.2202 Pending Chlamydia Trachomatis PCR NEGATIVE for Chlamydia trachomatis N. gonorrhoeae PCR Negative for N. gonorrhoeae Normal [facility] Comment on above: Performed By: #### L 400.2010, M8200.3000, M100.2200, M8200.2202 #### [facility] [address] [place], [address] M8200.3000on 04-13-2025 M8200.3000 Pending Trichomonas Vag DNA PCR Negative for Trichomonas vaginalis Normal [facility] Comment on above: Performed By: #### L 400.2010, M8200.3000, M100.2200, M8200.2203 #### [facility] [address] [place], [address] Urinalysis, Routine (Dipstic k)on 04-13-2025 BILIRUBIN URINE Normal Negative [facility] Comment on above: Order Comment: Urine , Random Result Comment: DUPL ICATE Performed By: #### L 400.2010, M8200.3000, M100.2200, M8200.2203 #### [facility] [address] [place], [address] Clarity (U) Normal Clear [facility] Comment on above: Order Comment: Urine , Random Result Comment: DUPL ICATE Performed By: #### L 400.2010, M8200.3000, M100.2200, M8200.2203 #### [facility] [address] [place], [address] Color (U) Normal Yellow [facility] Comment on above: Order Comment: Urine , Random Result Comment: DUPL ICATE Performed By: #### L 400.2010, M8200.3000, M100.2200, M8200.2203 #### [facility] [address] [place], [address] GLUCOSE, UR Normal Normal [facility] Comment on above: Order Comment: Urine , Random Result Comment: DUPL ICATE Performed By: #### L 400.2010, M8200.3000, M100.2200, M8200.2203 #### [facility] [address] [place], [address] KETONE UR Normal Negative [facility] Comment on above: Order Comment: Urine , Random Result Comment: DUPL ICATE Performed By: #### L 400.2010, M8200.3000, M100.2200, M8200.2203 #### [facility] [address] [place], [address] LEUK ESTERASE Normal Negative [facility] Comment on above: Order Comment: Urine , Random Result Comment: DUPL ICATE Performed By: #### L 400.2010, M8200.3000, M100.2200, M8200.2203 #### [facility] [address] [place], [address] Nitrite Ql (U) Normal Negative [facility] Comment on above: Order Comment: Urine , Random Result Comment: DUPL ICATE Performed By: #### L 400.2010, M8200.3000, M100.2200, M8200.2203 #### [facility] [address] [place], [address] OCCULT BLOOD-UR Normal Negative [facility] Comment on above: Order Comment: Urine , Random Result Comment: DUPL ICATE Performed By: #### L 400.2010, M8200.3000, M100.2200, M8200.2203 #### [facility] [address] [place], [address] pH UR Normal 5.0 - 8.0 [facility] Comment on above: Order Comment: Urine , Random Result Comment: DUPL ICATE Performed By: #### L 400.2010, M8200.3000, M100.2200, M8200.2203 #### [facility] [address] [place], [address] PROT DIPSTX Normal Negative [facility] Comment on above: Order Comment: Urine , Random Result Comment: DUPL ICATE Performed By: #### L 400.2010, M8200.3000, M100.2200, M8200.2203 #### [facility] [address] [place], [address] SP.GR. DIPSTX Normal 1.002-1.030 [facility] Comment on above: Order Comment: Urine , Random Result Comment: DUPL ICATE Performed By: #### L 400.2010, M8200.3000, M100.2200, M8200.2203 #### [facility] [address] [place], [address] UR Preservative Normal [facility] Comment on above: Order Comment: Urine , Random Result Comment: DUPL ICATE Performed By: #### L 400.2010, M8200.3000, M100.2200, M8200.2203 #### [facility] [address] [place], [address] UROBILI Normal Normal [facility] Comment on above: Order Comment: Urine , Random Result Comment: DUPL ICATE Performed By: #### L 400.2010, M8200.3000, M100.2200, M8200.2203 #### [facility] [address] [place], [address] Urine cultureOrdered By: Eladia Ovalle on 04-13-2025 Bacteria identified Cx Nom (U) Positive Abnormal [facility] Bilirubin Test strip Ql (U)O rdered By: Xavier Ovalle on 04-12-2025 Bilirubin Ql (U) Negative Negative [facility] Ketones Test strip Ql (U)Ord ered By: Xavier Ovalle on 04-12-2025 Ketones Ql (U) Negative Negative [facility] Nitrite Test strip Ql (U)Ord ered By: Xavier Ovalle on 04-12-2025 Nitrite Ql (U) Negative Negative [facility] Protein Test strip Ql (U)Ord ered By: Xavier Ovalle on 04-12-2025 Protein Ql (U) 15 mg/dl High Negative [facility] Urinalysis, Routine (Dipstic k)on 04-12-2025 BILIRUBIN URINE Negative Normal Negative [facility] Comment on above: Order Comment: CLEAN CATCH Performed By: #### L 400.2010 #### [facility] [address] [place], [address] Clarity (U) Clear Normal Clear [facility] Comment on above: Order Comment: CLEAN CATCH Performed By: #### L 400.2010 #### [facility] [address] [place], [address] Color (U) Yellow Normal Yellow [facility] Comment on above: Order Comment: CLEAN CATCH Performed By: #### L 400.2010 #### [facility] [address] [place], [address] GLUCOSE, UR Normal Normal Normal [facility] Comment on above: Order Comment: CLEAN CATCH Performed By: #### L 400.2010 #### [facility] [address] [place], [address] KETONE UR Negative Normal Negative [facility] Comment on above: Order Comment: CLEAN CATCH Performed By: #### L 400.2010 #### [facility] [address] [place], [address] LEUK ESTERASE Negative Normal Negative [facility] Comment on above: Order Comment: CLEAN CATCH Performed By: #### L 400.2010 #### [facility] [address] [place], [address] Nitrite Ql (U) Negative Normal Negative [facility] Comment on above: Order Comment: CLEAN CATCH Performed By: #### L 400.2010 #### [facility] [address] [place], [address] OCCULT BLOOD-UR Negative Normal Negative [facility] Comment on above: Order Comment: CLEAN CATCH Performed By: #### L 400.2010 #### [facility] [address] [place], [address] pH UR 6.5 Normal 5.0 - 8.0 [facility] Comment on above: Order Comment: CLEAN CATCH Performed By: #### L 400.2010 #### [facility] [address] [place], [place], [address] PROT DIPSTX 15 mg/dl Abnormal Negative [facility] Comment on above: Order Comment: CLEAN CATCH Performed By: #### L 400.2010 #### [facility] [address] [place], [place], [address] SP.GR. DIPSTX 1.015 Normal 1.002-1.030 [facility] Comment on above: Order Comment: CLEAN CATCH Performed By: #### L 400.2010 #### [facility] [address] [place], [address] UROBILI Normal Normal Normal [facility] Comment on above: Order Comment: CLEAN CATCH Performed By: #### L 400.2010 #### [facility] [address] [place], [address] Urine clarityOrdered By: Eladia Ovalle on 04-12-2025 Clarity (U) Clear Clear [facility] Urine color determinationOrd ered By: Xavier Ovalle on 04-12-2025 Color (U) Yellow Yellow [facility] Urine glucose detectionOrder ed By: Xavier Ovalle on 04-12-2025 Glucose Ql (U) Normal mg/dl Normal [facility] Urine leukocyte esterase det ection by dipstickOrdered By: Xavier Ovalle on 04-12-2025 Leukocyte esterase Test strip Ql (U) Negative Negative [facility] Urine pHOrdered By: Amisha Ovalle on 04-12-2025 pH (U) 6.5 [pH] 5.0 - 8.0 [facility] Urine specific gravity measu rementOrdered By: Xavier Ovalle on 04-12-2025 Specific gravity (U) [Rel density] 1.015 1.002-1.030 [facility] Urine urobilinogen measureme ntOrdered By: Xavier Ovalle on 04-12-2025 Urobilinogen Ql (U) Normal mg/dl Normal [facility] Urgent Care Visit Reporton 0 6-28-2025 Urgent Care Visit Report [facility] [address], [address] [place] [address] OFFICE VISIT Date of Service: 03/24/25 MR#: [id number] Acct: [id number] Name: CARLOS MORIN Rep #: [id number] : 1975 Provider: TU Pepper Age/Sex: 50/F Location[place] [facility] Status: Signed Intake Vital Signs 09/15/21 09:25 03/24/25 11:19 Height 5 ft 5 in BP 102/68 Blood Pressure Location Rt brachial Position Sitting Respiration 15 Pulse 73 Pulse Source NIBP Temp 98.3 F Temp Source Oral Pulse Oximetry (%) 98 Oxygen Delivery Method room air Intake Visit Reasons: DRAINAGE R EAR Chief Complaint: right ear drainage Reroller Hand Required: No Is patient in pain?: No Allergies sulfamethoxazole (From Bactrim) Allergy (Unknown, Verified 03/24/25 11:32) Rash trimethoprim (From Bactrim) Allergy (Unknown, Verified 03/24/25 11:32) Rash amoxicillin trihydrate (From Augmentin) Allergy (Verified 03/24/25 11:32) Other potassium clavulanate (From Augmentin) Allergy (Verified 03/24/25 11:32) Other codeine Adverse Reaction (Verified 03/24/25 11:32) Vomiting Sulfa (Sulfonamide Antibiotics) Adverse Reaction (Verified 03/24/25 11:32) Mucosal lesions Medications ???Medication ???Instructions ???Recorded ???Confirmed ???Type cetirizine 10 mg capsule (Zyrtec) 10 mg PO DAILY PRN Allergies 09/2810/25/22 History ibuprofen 100 mg tablet 200 mg PO Q6H 09/29/20 10/25/22 Hi story albuterol sulfate 90 mcg/actuation 1 inh inhalation Q6H PRN shortne ss 03/15/25 03/15/25 Rx aerosol inhaler of breath or wheezing #6.7 grams amoxicillin 500 mg capsule 500 mg PO TID 7 days #21 caps 02/2603/24/25 Rx fluconazole 150 mg tablet 150 mg PO ONCE #2 tabs 03/24/25 Rx Is last menstrual period known: No Post menopausal: No Patient : No Have you fallen in the past year?: No Nurse's Note: right ear drainage and decreased hearing x 4 days. denies pain, fever, blood, viral s/s. [facility] Medical History Anxiety Cellulitis of great toe, right Constipation Depression Gastric reflux Hemorrhoids High cholesterol History of irregular heartbeat History of pain when walking Non-smoker Rectal fissure Thyroid disease Thyroid nodule Surgical History History of cardiac catheterization History of repair of rectocele History of tonsillectomy and adenoidectomy Hx of bilateral breast reduction surgery Hx of hysterectomy Status post hemorrhoidectomy Family History Mother Heart disease Father Heart disease High cholesterol Grandmother Myocardial infarction Social History household members: spouse and children housing: house current occupational status: employed Smoking Status: Never smoker second hand exposure: No alcohol intake: never substance use type: does not use caffeine: Yes what type of physical activity do you participate in: none frequency: does not exercise seatbelt use: always do you feel safe at home: Yes HPI HPI Chief Complaint: right ear drainage Details: CARLOS MORIN, is a 50 F who presents to the office today for -can take amox but not augmentin -recent uri- was coughing really hard/bad- was tx wtih z pack -past 4 days with clear to yellow drainage from right ear, decrease in hearing, feels like a rustling noise to ear -no fever or chills -denies ear pain but feels like a pressure -tried so far had some old ear drops- neomycin with steroid tried for 2 days did not help ROS Const Constitutional: Positive for other (ROS negative x6 except what was placed in HPI) Exam Const General: cooperative and no acute distress Orientation: alert and oriented x3 HENMT Head: normal to inspection and normocephalic Other: -right ear + perforated ear drum- scant amt of dried crusted blood noted around 3-4 o'clock- no drainage noted- no pinna or tragus pain- outer ear with no redness or swelling -left ear normal findings Resp Effort Inspection: normal respiratory effort, able to speak in complete sentences and symmetric chest movement Auscultation: Bilateral: Clear to Auscultation, Left: Clear to Auscultation and Right: Clear to Auscultation Cardio Rate: regular rate Rhythm: regular rhythm Heart Sounds: S1 normal and S2 normal GI Auscultation: normal bowel sounds Palpation: soft and no hepatosplenomegaly Neuro General: patient alert, patient awake and patient oriented x3 Extrem General: normal to inspection and full ROM Psych Appearance: grossly normal Mental Status: mental status grossly normal Attitude: co (more content not included)... Normal [facility] Office Visit Reporton 2024 Office Visit Report [facility] [address] [place] [address] OFFICE VISIT Date of Service: 03/15/25 MR#: [id number] Acct: [id number] Patient: CARLOS MORIN Rep #: [id number] : 1975 Provider: SUSHIL Langley Age/Sex: 50/F Location[place] [facility] [place] Status: Signed Intake Vital Signs 09/15/21 09:25 Height 1.65 m Intake Visit Reasons: Cough Chief Complaint: cough Allergies sulfamethoxazole (From Bactrim) Allergy (Unknown, Verified 08/31/24 12:19) Rash trimethoprim (From Bactrim) Allergy (Unknown, Verified 08/31/24 12:19) Rash amoxicillin trihydrate (From Augmentin) Allergy (Verified 08/31/24 12:19) Other potassium clavulanate (From Augmentin) Allergy (Verified 08/31/24 12:19) Other codeine Adverse Reaction (Verified 08/31/24 12:19) Vomiting Sulfa (Sulfonamide Antibiotics) Adverse Reaction (Verified 08/31/24 12:19) Mucosal lesions [facility] Medical History Anxiety Cellulitis of great toe, right Constipation Depression Gastric reflux Hemorrhoids High cholesterol History of irregular heartbeat History of pain when walking Non-smoker Rectal fissure Thyroid disease Thyroid nodule Surgical History History of cardiac catheterization History of repair of rectocele History of tonsillectomy and adenoidectomy Hx of bilateral breast reduction surgery Hx of hysterectomy Status post hemorrhoidectomy Family History Mother Heart disease Father Heart disease High cholesterol Grandmother Myocardial infarction Social History household members: spouse and children housing: house current occupational status: employed Smoking Status: Never smoker second hand exposure: No alcohol intake: never substance use type: does not use caffeine: Yes what type of physical activity do you participate in: none frequency: does not exercise seatbelt use: always do you feel safe at home: Yes HPI HPI Chief Complaint: cough Details: CARLOS MORIN, is a 50 F who presents to the office today for cough. Pt has been sick about 1 week. She has had a cough that has been productive of brown sputum. She had this last week and it started to get better and then it came back. She has some chest tightness and sob. She has no sinus pain or pressure, no ear ache, no sore throat, no congestion. She has no fever/chills/body ache. She took a home covid test which was negative. She has tried some OTCs and her albuterol inhaler that she has for exercise induced asthma which have helped minimally. ROS Const Constitutional: No chills, fatigue or fever(s) ENT ENT: No ear or mastoid pain, ear pressure, nasal congestion, sinus pressure, sinus pain or sore throat Resp Respiratory: Positive for cough Cough: Yes productive, shortness of breath and other (chest tightness) Endo Endocrine: No fatigue Exam Const General: cooperative, healthy appearing, comfortable, no acute distress, well developed and well groomed Nutritional Appearance: average body habitus and well nourished Orientation: alert, awake and oriented x3 HENMT Head: normocephalic and atraumatic Face and sinus: no sinus tenderness Resp Effort Inspection: normal respiratory effort, able to speak in complete sentences, symmetric chest movement and no cough Coding Level of Care Code Off vis,est,level 3 Diagnoses Acute bronchitis J20.9 Assessment and Plan Assessment and Plan (1) Acute bronchitis: Status: Acute Plan: Cough with brownish sputum production, chest tightness, and some SOB. Sick about 1 week, started to improve on its own and then worsened again. Pt took home covid test which was negative. She has tried some OTCs and her albuterol inhaler that she has for exercise induced asthma which helped minimally. At this point recommend adding azithromycin. Albuterol inhaler refilled at patients request as well. Disclaimer: This visit was performed virtually via live audio and video at the request of the patient. As such the physical exam and testing is limited by what is able to be seen through the patient's camera and lighting which may vary in quality, and limited by what the patient is able to perform via clinician instruction. If there is no significant improvement or new complications, the patient should follow up [id number] with a clinician of the appropriate level of care. Medications: New azithromycin (Zithromax Z-Lennox) take 500 mg today (day 1), then 250 mg for 4 days (days 2-5) PO 6 tabs 0RF albuterol sulfate 90 mcg/actuation 1 inh inhalation Q6H PRN 6.7 grams 0RF shortness of breath or wheezing Discontinued fluconazole Take at onset of symptoms (more content not included)... Normal [facility] PT D/C Summary (1)on 025 PT D/C Summary (1) [facility] Physical Therapy [facility] [address] [place] [address] / REHABILITATION SERVICES DISCHARGE SUMMARY MR#: [id number] Acct: [id number] Name: CARLOS MORIN Rep #: [id number] : 1975 50 From: Andrew Maradiaga PT, Cert. T, OCS Referring DrGretta: SUSHIL Benites Status: REG RCR Insurance: [employer] SEL[employer] PAY INSURANCE Discharge Summary D/C summary: It has been my pleasure to treat CARLOS MORIN referred by SUSHIL Benites, with the diagnosis of IMPINGEMENT SYNDROME OF LEFT SHOULDER,BICEPS TENDITIS OF LEFT SHOULDER for a total of 5 visit(s). Discharge Date: 02/14/25 Please see the following information for a summary of their discharge status. Subjective Subjective: Patient reports symptoms some worse and not better Any activity OH and lifting is painful some worse with catching Pain Left Shoulder: Pain Intensity (Out of 10): 3 Overall Improvement % Improvement: 0 Objective Objective/Function: POSTURE: mild forward posture PALAPTION: tender AC NEURO: denies parestehesia/tingling ,reflexes intact AROM: shoulder flexion 120 degrees pain ,abduction 150 degrees ,ER 90 ,IR L1 PROM: flexion /abduction 160 degrees ,ER 95 CAPSULAR : WFL MMT: ( peak force) infraspinatus 10.0 subscapularis 15.3 ,supraspinatus 7.0 Pain ,deltoid 7.9 pain Goals Goal 1:: Patient to be I with HEP for shoulder Goal Progress: Progressing Goal 2:: Patient to improve AROM shoulder flexion /abduction 150 degrees with less pain with OH activities Goal Progress: Not Progressing Goal 3:: Patient to demonstrate 50% improvement with ADLS and job demands Goal Progress: Not Progressing Goal 4:: Patient to improve peak force strength 5-10# improve function and ADLS Goal Progress: Not Progressing Goal 5:: Patient be able to perform ADLS and housework tasks with min limitations Goal Progress: Not Progressing Plan Plan: -Possible RTC tear -RTD -MRI D/C Information Discharge Comments: RTD d/c sentence: If there are questions or concerns regarding this patient's physical therapy, please feel free to call me at [phone]. Thank you for the referral of this patient. Sincerely, Andrew Maradiaga, PT, Cert MDT, OCS Balance/Gait/Function al tests Balance/Special Test Scores Quick DASH Score: 31.8175 Improvement % Improvement: 0 02/14/25 1343 CC: Dr. Xavier Ovalle MD; SUSHIL Benites JLA Signed Normal [facility] Inital Evaluation (1) - PTon 01-08-2025 Inital Evaluation (1) - PT [facility] [address] [place] [address] / REHABILITATION SERVICES INITIAL EVALUATION MR#: [id number] Acct: [id number] Name: CARLOS MORIN Rep #: [id number] : 1975 49 From: Andrew Hernandez PT. MD Saunders, OCS Referring Dr.: SUSHIL Benites Status: REG RCR Insurance: [employer] SELF PAY INSURANCE Patient's Visit Information Visit Information Visit Information: CARLOS MORIN is a 49 year old F referred to Physical Therapy by SUSHIL Benites with a diagnosis of IMPINGEMENT SYNDROME OF LEFT SHOULDER,BICEPS TENDITIS OF LEFT SHOULDER. Date of Evaluation: 01/08/25 Physical Therapist: Andrew Maradiaga PT, Cert T, OCS Visit Plan Frequency: 2x /Week Duration: 4 Weeks Plan: PT INTERVENTIONS RTC /SCAPULAR STRENGTHENING ,POSTURAL EX'S ,AND MODALTIES Subjective Subjective: This 49 y/o female presents to physical therapy with left shoulder pain. Patient has left shoulder pain for [address] pearson -.and needs PT if MRI is needed. No injury just insidious onset of pain. Patient pain located global shoulder. Patient described as ache. Patient aggravating factors lifting ,OH activity thus affects ADLS and housework task. Alleviating factors cold and motrin. Patient condition affects sleeping on left side. Patient has no trauma.Denies paresthesia/tingling - .Patient condition affects QOL and function/job demands. Patient goals to decrease pain. 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 Left Shoulder: Pain Intensity (Out of 10): 3 Pain Intensity Range: 10 Objective Objective: POSTURE: mild forward posture PALAPTION: tender AC NEURO: denies parestehesia/tingling ,reflexes intact AROM: shoulder flexion 120 degrees pain ,abduction 150 degrees ,ER 90 ,IR L1 PROM: flexion /abduction 160 degrees CAPSULAR : WFL MMT: ( peak force) infraspinatus 7.9 subscapularis 15.3 ,supraspinatus 8.2 ,deltoid 7.9 Special Tests L Shoulder External Rotation Lag Test - RC Tear: Negative L Shoulder Lift Off Test - Subscapular Tear: Negative L Shoulder Drop Sign - IS Test: Positive L Shoulder Empty Can - SS: Positive L Shoulder Neer - Impingement: Positive L Shoulder Pickard Ashutosh - Impingement: Positive L Shoulder O'Briens - SLAP/A-C: Positive Balance/Special Test Scores Quick DASH Score: 31.8175 Goals Goal 1:: Patient to be I with HEP for shoulder Goal Time Frame: 4-6 Weeks Goal 2:: Patient to improve AROM shoulder flexion /abduction 150 degrees with less pain with OH activities Goal Time Frame: 4-6 Weeks Goal 3:: Patient to demonstrate 50% improvement with ADLS and job demands Goal Time Frame: 4-6 Weeks Goal 4:: Patient to improve peak force strength 5-10# improve function and ADLS Goal Time Frame: 4-6 Weeks Goal 5:: Patient be able to perform ADLS and housework tasks with min limitations Goal Time Frame: 4-6 Weeks Rehabilitation Potential Physical Therapy Diagnosis: This patient has left shoulder pain due to possible RTC tear/tendinopathy with pain ,decrease ROM ,weakness ,affects ADLS and housework tasks /job demands thus benefit from skilled PT PT Rehabilitation Potential: Good Anticipated Interventions Patient/Client Instruction: Educate patient on: Condition and Plan of Care For the Purpose of:: To decrease pain, To improve muscle performance and motor function, To increase tolerance to activity/condition/po sition, To improve ability of physical actions for home/community/work/l eisure, To improve health of tissue, To decrease soft tissue restriction, To increase flexibility/ROM, To assume or resume ADL's, To reduce risk of recurrence and To improve tolerance to ADL's Therapeutic Exercise to Include: Strength training, Postural training and Active ROM Comment: RTC For the Purpose of:: To decrease pain, To increase ROM, To improve muscle performance and motor function, To improve ability to perform ADL's, To increase tolerance to activity/condition/po sition, To improve ability of physical actions for home/community/work/l eisure, To improve health of tissue, To decrease soft tissue restriction, To increase flexibility/ROM, To reduce risk of recurrence and To improve tolerance to ADL's Text: Thank you for the opportunity to evaluate your patient. For Medicare and Medicare HMO plans, please review the plan of care and approve it. It will need to be FAXED BACK to us at [phone] for Medicare purposes. For Medicare only, by signing this I certify the plan of care. Please let me know if there are questions or concerns regarding this plan of care. Physician Signature: Date : 01/09/25 0810 CC: Dr. Xavier Ovalle MD; SUSHIL Benites JLA Signed Normal [facility] Urinalysis, Completeon 11-07 BACTERIA 2+ /hpf Normal None Seen [facility] Comment on above: Order Comment: Order Date: 11/07/24 Order Info: [address] [place] [address] R/O UTI STAFF NURSE ICU RESOURCE TEAM TO SPECIFY Performed By: #### L [id number] #### [facility] [address] [place], [address] EPI,SQUAMOUS 0-5 SEEN Normal 5-10 [facility] Comment on above: Order Comment: Order Date: 11/07/24 Order Info: [address] [place] [address] R/O UTI STAFF NURSE ICU RESOURCE TEAM TO SPECIFY Performed By: #### L [id number] #### [facility] [address] [place], [address] RBC 25-50 SEEN Normal 0-5 [facility] Comment on above: Order Comment: Order Date: 11/07/24 Order Info: [address] [place] [address] R/O UTI STAFF NURSE ICU RESOURCE TEAM TO SPECIFY Performed By: #### L [id number] #### [facility] [address] [place], [address] WBC >100 SEEN Normal 0-5 [facility] Comment on above: Order Comment: Order Date: 11/07/24 Order Info: [address] [place] [address] R/O UTI STAFF NURSE ICU RESOURCE TEAM TO SPECIFY Result Comment: Micr oscopic field is filled. Other elements may be obscured. Performed By: #### L [id number] #### [facility] [address] [place], [address] Mucus Ql (Urine sed) 0 SEEN Normal [facility] Comment on above: Order Comment: Order Date: 11/07/24 Order Info: [address] [place] [address] R/O UTI STAFF NURSE ICU RESOURCE TEAM TO SPECIFY Performed By: #### L [id number] #### [facility] [address] [place], [address] Urgent Care Visit Reporton 1 11-01-2023 Urgent Care Visit Report [facility] [address], [address] [place] [address] OFFICE VISIT Date of Service: 08/31/24 MR#: [id number] Acct: [id number] Name: CARLOS MORIN Rep #: [id number] : 1975 Provider: SUSHIL Humphrey Age/Sex: 49/F Location[place] [facility] Status: Signed Intake Vital Signs 09/15/21 09:25 08/31/24 12:19 Height 5 ft 5 in BP 124/80 H Blood Pressure Location Lt brachial Position Sitting Respiration 15 Pulse 98 Pulse Source NIBP Temp 98.4 F Temp Source Oral Pulse Oximetry (%) 97 Oxygen Delivery Method room air Intake Visit Reasons: Cough Chief Complaint: cough, drainage, chest congest Reroller Hand Required: No Is patient in pain?: No Allergies sulfamethoxazole (From Bactrim) Allergy (Unknown, Verified 08/31/24 12:19) Rash trimethoprim (From Bactrim) Allergy (Unknown, Verified 08/31/24 12:19) Rash amoxicillin trihydrate (From Augmentin) Allergy (Verified 08/31/24 12:19) Other potassium clavulanate (From Augmentin) Allergy (Verified 08/31/24 12:19) Other codeine Adverse Reaction (Verified 08/31/24 12:19) Vomiting Sulfa (Sulfonamide Antibiotics) Adverse Reaction (Verified 08/31/24 12:19) Mucosal lesions Is last menstrual period known: No Post menopausal: No Patient : No Have you fallen in the past year?: No Nurse's Note: cough, drainage, chest congest x 1 week with mucus. pt declines viral testing, is flying out of town tomorrow. concerned s/s will worsen away from home [facility] Medical History Anxiety Cellulitis of great toe, right Constipation Depression Gastric reflux Hemorrhoids High cholesterol History of irregular heartbeat History of pain when walking Non-smoker Rectal fissure Thyroid disease Thyroid nodule Surgical History History of cardiac catheterization History of repair of rectocele History of tonsillectomy and adenoidectomy Hx of bilateral breast reduction surgery Hx of hysterectomy Status post hemorrhoidectomy Family History Mother Heart disease Father Heart disease High cholesterol Grandmother Myocardial infarction Social History household members: spouse and children housing: house current occupational status: employed Smoking Status: Never smoker second hand exposure: No alcohol intake: never substance use type: does not use caffeine: Yes what type of physical activity do you participate in: none frequency: does not exercise seatbelt use: always do you feel safe at home: Yes HPI HPI Chief Complaint: cough, drainage, chest congest Details: CARLOS MORIN, is a 49 F who presents to the office today for cough, congestion and postnasal drainage for the past week. Patient states that she has had a cough productive of yellow mucus. She denies hemoptysis, shortness of breath or difficulty breathing. No nausea, vomiting, diarrhea. No loss of taste or smell. No other associated symptoms or alleviating/aggravati ng factors. ROS Const Constitutional: No anorexia (As noted in HPI) Exam Const General: cooperative and well developed HENMT Head: normal to inspection and atraumatic Ears: hearing grossly normal bilaterally Nose: nasal discharge clear Face and sinus: normal facial exam Mouth: oral mucosae normal Throat: abnormal tonsil bilaterally hypertrophy 1+ Resp Effort Inspection: normal respiratory effort and no audible wheezes Auscultation: Bilateral: Clear to Auscultation Cardio Palpation: normal PMI Rate: regular rate Rhythm: regular rhythm Neuro General: patient alert and CN's II-XI intact bilaterally Psych Appearance: grossly normal Mental Status: mental status grossly normal Coding Level of Care Code Off vis,est,level 3 Diagnoses Acute bronchitis J20.9 Assessment and Plan Assessment and Plan (1) Acute bronchitis: Status: Acute Plan: Azithromycin and Medrol Dosepak as prescribed today. Encouraged to get plenty of rest, drink lots of clear liquids, and use Tylenol or Ibuprofen (unless contraindicated) for fever and comfort. Patient also educated on other symptomatic management techniques. To be seen in 7-10 days if no improvement; sooner if worsening of symptoms. Patient advised of potential red flags and when appropriate to report to the ED. Patient verbalized understanding and agreement with all the above. Medications: New azithromycin take 500 mg today (day 1), then 250 mg for 4 days (days 2-5) PO 6 tabs 0RF methylprednisolone (Medrol (Lennox)) 4 mg PO PER PKG DIR 21 tabs 0RF 6 days Plan Details Goals Barriers: Goals Decrease spasm (more content not included)... Normal [facility] Absolute lymphocyte countOrd ered By: HEALTH ASSESSMENT on 06-10-2023 Lymphocytes Auto (Unsp spec) [#/Vol] 1.69 10*3/uL 0.83-4.51 [facility] Absolute reticulocyte countO rdered By: HEALTH ASSESSMENT on 06-10-2023 Reticulocytes (Bld) [#/Vol] 0.00 10*3/uL 0-5 [facility] Basophil percentageOrdered B y: HEALTH ASSESSMENT on 06-10-2023 Basophil percentage 3.0 mg/dL 2.5-4.9 [facility] Bilirubin [Mass/Vol] 0.40 mg/dL 0.20-1.00 [facility] Comment on above: For patients on eltr ombopag therapy, use of Dimension [place] TBIL is not recommended. Chloride [Moles/Vol] 110 mmol/L 98-107 [facility] Cholesterol [Mass/Vol] 196 mg/dL <200 [facility] Comment on above: <200 mg/dL Desirable 200-240 mg/dL Borderline >240 mg/dL High Risk Glucose [Mass/Vol] 85 mg/dL 74-106 [facility] LDH [Catalytic activity/Vol] 156 U/L 84-246 [facility] Neutrophils (Bld) [#/Vol] 4.0 10*3/uL 2.0-7.7 [facility] Potassium [Moles/Vol] 4.1 mmol/L 3.5-5.1 [facility] Protein [Mass/Vol] 6.9 g/dL 6.4-8.2 [facility] Sodium [Moles/Vol] 138 mmol/L 136-145 [facility] Triglyceride [Mass/Vol] 64 mg/dL <199 [facility] Comment on above: The drugs N-Acetylcy steine and Metamizole may falsely depress this assay.Serum Triglycerides Reference Interval Normal <150 mg/dL Borderline high 150 - 199 mg/dL High 200 - 499 mg/dL Very High > or = 500 mg/dL WBC (Bld) [#/Vol] 6.5 10*3/uL 4.4-11.0 [facility] Bilirubin Test strip Ql (U)O rdered By: HEALTH ASSESSMENT on 06-10-2023 Bilirubin Ql (U) Negative Negative [facility] Blood erythrocytes count (nu mber/volume)Ordered By: HEALTH ASSESSMENT on 06-10-2023 RBC (Bld) [#/Vol] 4.59 10*6/uL 4.2-5.4 [facility] Blood hemoglobin measurement (mass/volume)Ordered By: HEALTH ASSESSMENT on 06-10-2023 Hemoglobin (Bld) [Mass/Vol] 13.3 g/dL 12.0-15.0 [facility] Blood platelet mean volumeOr dered By: HEALTH ASSESSMENT on 06-10-2023 Platelet mean volume (Bld) [Entitic vol] 10.9 fL 6.2-12.0 [facility] Determination of erythrocyte mean corpuscular volume (MCV)Ordered By: HEALTH ASSESSMENT on 06-10-2023 MCV (RBC) [Entitic vol] 90.2 fL 81-99 [facility] Direct bilirubinOrdered By: HEALTH ASSESSMENT on 06-10-2023 Bilirubin.direct [Mass/Vol] 0.10 mg/dL 0.00-0.30 [facility] Hematocrit Auto (Bld) [Volum e fraction]Ordered By: HEALTH ASSESSMENT on 06-10-2023 Hematocrit (Bld) [Volume fraction] 41.4 % 37-47 [facility] Ketones Test strip Ql (U)Ord ered By: HEALTH ASSESSMENT on 06-10-2023 Ketones Ql (U) Negative Negative [facility] - Chemistry and C hemistry - challengeOrdered By: HEALTH ASSESSMENT on 06-10-2023 ALP [Catalytic activity/Vol] 82 U/L 45-117 [facility] ALT [Catalytic activity/Vol] 15 U/L 13-56 [facility] Cholesterol.total/[place] sterol in HDL [Mass ratio] 3.60 {ratio} [facility] CO2 [Moles/Vol] 24.0 mmol/L 21.0-32.0 [facility] Globulin (S) [Mass/Vol] 3.4 g/dL 2.2-4.2 [facility] Urea nitrogen/Creatinine [Mass ratio] 20.0 mg/mg 10-20 [facility] - Hematology and Cell countsOrdered By: HEALTH ASSESSMENT on 06-10-2023 Erythrocyte distribution width (RBC) [Entitic vol] 42.1 fL 35.1-43.9 [facility] Erythrocyte distribution width (RBC) [Ratio] 12.8 % 11.6-14.6 [facility] MCH (RBC) [Entitic mass] 29.0 pg 27.0-32.0 [facility] Nucleated RBC/100 WBC (Bld) [Ratio] 0 % 0-5 [facility] MCHC Auto (RBC) [Mass/Vol]Or dered By: HEALTH ASSESSMENT on 06-10-2023 MCHC (RBC) [Mass/Vol] 32.1 g/dL 32-36 [facility] Nitrite Test strip Ql (U)Ord ered By: HEALTH ASSESSMENT on 06-10-2023 Nitrite Ql (U) Negative Negative [facility] No Panel InformationOrdered By: HEALTH ASSESSMENT on 06-10-2023 Estimated GFR (MDRD) Amer 92 mL/min >60 [facility] Comment on above: GFR Calc Estimated GFR (MDRD) Non-Af Amer 76 mL/min >60 [facility] Comment on above: Non- GFR Calc Platelets bldOrdered By: JOSSELIN [facility] ASSESSMENT on 06-10-2023 Platelets (Bld) [#/Vol] 226 10*3/uL 150-450 [facility] Protein Test strip Ql (U)Ord ered By: HEALTH ASSESSMENT on 06-10-2023 Protein Ql (U) Negative Negative [facility] Segmented neutrophils/100 WB C Auto (Bld)Ordered By: HEALTH ASSESSMENT on 06-10-2023 Segmented neutrophils/100 WBC (Bld) 61.8 % 47-70 [facility] Serum or plasma albumin blossom urement (mass/volume)Ordered By: HEALTH ASSESSMENT on 06-10-2023 Albumin [Mass/Vol] 3.5 g/dL 3.2-5.0 [facility] Serum or plasma albumin/glob ulin mass ratioOrdered By: HEALTH ASSESSMENT on 06-10-2023 Albumin/Globulin [Mass ratio] 1.0 {ratio} 0.9-2.4 [facility] Serum or plasma calcium blossom urement (mass/volume)Ordered By: HEALTH ASSESSMENT on 06-10-2023 Calcium [Mass/Vol] 8.5 mg/dL 8.5-10.1 [facility] Serum or plasma cholesterol in HDL measurement (mass/volume)Ordered By: HEALTH ASSESSMENT on 06-10-2023 Cholesterol in HDL [Mass/Vol] 54 mg/dL >40 [facility] Comment on above: The drugs N-Acetylcy steine and Metamizole may falsely depress this assay. Reference Range HDL <40 mg/dL Low HDL Cholesterol HDL >or= 60 mg/dL High HDL Cholesterol Serum or plasma cholesterol in VLDL measurement (mass/volume)Ordered By: HEALTH ASSESSMENT on 06-10-2023 Cholesterol in VLDL [Mass/Vol] 13 mg/dL 5-40 [facility] Serum or plasma creatinine m easurement (mass/volume)Ordered By: HEALTH ASSESSMENT on 06-10-2023 Creatinine [Mass/Vol] 0.85 mg/dL 0.55-1.02 [facility] Comment on above: The validity of the calculated GFR & GFRAA in patients over 70 years has not been determined. Clinical correlation is essential. Serum or plasma low density lipoprotein (LDL) cholesterol measurement (mass/volume)Ordered By: HEALTH ASSESSMENT on 06-10-2023 Cholesterol in LDL [Mass/Vol] 129 mg/dL 0-130 [facility] Serum or plasma urea nitroge n measurement (mass/volume)Ordered By: HEALTH ASSESSMENT on 06-10-2023 Urea nitrogen [Mass/Vol] 17 mg/dL 7-18 [facility] Serum or plasma uric acid me asurement (mass/volume)Ordered By: HEALTH ASSESSMENT on 06-10-2023 Urate [Mass/Vol] 5.3 mg/dL 2.6-6.0 [facility] Comment on above: The drugs N-Acetylcy steine and Metamizole may falsely depress this assay. Thin prep Papanicolaou smear with manual screeningOrdered By: HEALTH ASSESSMENT on 06-10-2023 Thin prep Papanicolaou smear with manual screening 12 U/L 15-37 [facility] Thin prep Papanicolaou smear with manual screening 4 5-15 [facility] Urine blood detectionOrdered By: HEALTH ASSESSMENT on 06-10-2023 RBC Ql (U) Negative Negative [facility] Urine clarityOrdered By: HEA LTH ASSESSMENT on 06-10-2023 Clarity (U) Clear Clear [facility] Urine color determinationOrd ered By: HEALTH ASSESSMENT on 06-10-2023 Color (U) Yellow Yellow [facility] Urine glucose detectionOrder ed By: HEALTH ASSESSMENT on 06-10-2023 Glucose Ql (U) Normal mg/dl Normal [facility] Urine leukocyte esterase det ection by dipstickOrdered By: HEALTH ASSESSMENT on 06-10-2023 Leukocyte esterase Test strip Ql (U) Negative Negative [facility] Urine pHOrdered By: HEALTH A SSESSMENT on 06-10-2023 pH (U) 6.0 [pH] 5.0 - 8.0 [facility] Urine specific gravity measu rementOrdered By: HEALTH ASSESSMENT on 06-10-2023 Specific gravity (U) [Rel density] 1.015 1.002-1.030 [facility] Urobilinogen Auto test strip Ql (U)Ordered By: HEALTH ASSESSMENT on 06-10-2023 Urobilinogen Ql (U) Normal mg/dl Normal [facility] Clinical Summary: DignaRaghu juan a 11-07-2021 [facility] OP Visit Invalid Interpretation Code [facility] [place] [facility] Work Phone: Otheron 07-16-2009 CONVERTED CLINICAL HISTORY OPERATIVE PROCEDURE: Dinesh breast reduction, lt nipple reduction CLINICAL INFORMATION: Dinesh breast macromastia [facility] CONVERTED FINAL DIAGNOSIS FINAL DIAGNOSIS: A) RIGHT BREAST, REDUCTION - FIBROCYSTIC CHANGE. NEGATIVE FOR MALIGNANCY. B) LEFT BREAST, REDUCTION - FIBROCYSTIC CHANGE. NEGATIVE FOR MALIGNANCY. C) SKIN OF MEDIAL ABDOMEN, EXCISION - DYSPLASTIC COMPOUND NEVUS. D) SKIN OF LATERAL ABDOMEN, EXCISION - DYSPLASTIC COMPOUND NEVUS. COMMENT: Fibrocystic change includes fibrosis, adenosis, apocrine metaplasia, and cyst formation. Specimens C and D slides reviewed by Dr. Dupree. SPECIMEN: (A) BREAST TISSUE LEFT (B) BREAST TISSUE RIGHT (C) SKIN (D) SKIN [facility] CONVERTED GROSS DESCRIPTION GROSS DESCRIPTION: Rt breast tissue A) Specimen A is labeled right breast tissue. Received are portions of benitez skin with attached breast tissue measuring 20 x 10 x 7 cm. The skin surface appears unremarkable. Sections through the breast tissue reveal areas of dense, smooth, pink-white, fibrous tissue with surrounding adipose tissue. No discrete or suspicious lesions are identified. The specimen is sectioned and a sample submitted in three cassettes labeled A. Lt breast tissue B) Specimen B is labeled left breast tissue. Received are portions of benitez skin with attached breast tissue measuring 15 x 15 x 3 cm in aggregate. The skin surface appears unremarkable. Sections through the breast tissue reveal areas of smooth to nodular, pink-white, fibrous tissue with surrounding normal appearing adipose tissue. No discrete or suspicious lesions are identified. Principal Data Architect sample submitted in three cassettes labeled B. Nevus abdomen medial C) Specimen C is labeled nevus abdominal medial. Received is an ellipse of benitez unoriented skin with attached soft tissue measuring 1.3 x 0.7 x 0.3 cm. Centrally located is an area of brown discoloration measuring 0.3 cm in diameter. The resection margins are Traci inked. The specimen is serially sectioned and submitted in cassette C. Nevus abdomen lateral D) Specimen D is labeled nevus abdominal lateral. Received is an ellipse of benitez skin with attached soft tissue measuring 1 x 0.5 x 0.2 cm. On the skin surface is an area of brown discoloration measuring 0.5 cm in diameter. The resection margins are inked. The specimen is serially sectioned and submitted in cassette D. EAC/SMS/gpl MICROSCOPIC DESCRIPTION: Slides reviewed. SDS/lrs [facility] CONVERTED ORDERING PROVIDER Ordering Provider: GARCIA SAUNDERS [facility] Thyroidon 07-16-2009 [facility] Richard RODRIGUEZ M.D., PATHOLOGIST (Electronic signature on file) Final Signed Out: 07/16/2009 12:49 [facility] Vital Signs Date Time Vital Sign Value Performing Clinician Facility 08-07-2025 10:010500 Body height 173 cm Juan Pablo Shahid PA-C Work Phone: [facility] 08-07-2025 10:010500 Body height 172.72 cm Juan Pablo Dillon PA-C Work Phone: [facility] 08-07-2025 10:01-0500 Body mass index (BMI) [Ratio] 27.47 kg/m2 Juan Pablo Dillon PA-C Work Phone: [facility] 08-07-2025 10:01-0500 Body weight 82 kg Juan Pablo Dillon PA-C Work Phone: [facility] 08-07-2025 10:01-0500 Body weight 81.65 kg Juan Pablo Dillon PA-C Work Phone: [facility] 08-07-2025 10:01-0500 BP SITE #1 Juan Pablo Dillon PA-C Work Phone: [facility] 08-07-2025 10:01-0500 Diastolic blood pressure 84 mm[Hg] Juan Pablo Dillon PA-C Work Phone: [facility] 08-07-2025 10:01-0500 Heart rate 81 /min Juan Pablo Dillon PA-C Work Phone: [facility] 08-07-2025 10:01-0500 HGHTCHNVIS Juan Pablo Dillon PA-C Work Phone: [facility] 08-07-2025 10:01-0500 Systolic blood pressure 125 mm[Hg] Juan Pablo Dillon PA-C Work Phone: [facility] 08-07-2025 10:01-0500 VITALSDONE Juan Pablo Dillon PA-C Work Phone: [facility] 07-06-2025 08:25-0400 Body height 173 cm Juan Pablo Dillon PA-C Work Phone: [facility] 07-06-2025 08:25-0400 Body height 172.72 cm Juan Pablo Dillon PA-C Work Phone: [facility] 07-06-2025 08:25-0400 Body mass index (BMI) [Ratio] 27.47 kg/m2 Juan Pablo Dillon PA-C Work Phone: [facility] 07-06-2025 08:25-0400 Body weight 82 kg Juan Pablo Dillon PA-C Work Phone: [facility] 07-06-2025 08:25-0400 Body weight 81.65 kg Juan Pablo Dillon PA-C Work Phone: [facility] 07-06-2025 08:25-0400 BP SITE #1 Juan Pablo Dillon PA-C Work Phone: [facility] 07-06-2025 08:25-0400 Diastolic blood pressure 84 mm[Hg] Juan Pablo Dillon PA-C Work Phone: [facility] 07-06-2025 08:25-0400 HGHTCHNVIS Juan Pablo Dillon PA-C Work Phone: [facility] 07-06-2025 08:25-0400 Systolic blood pressure 122 mm[Hg] Juan Pablo Dillon PA-C Work Phone: [facility] 07-06-2025 08:25-0400 VITALSDONE Juan Pablo Dillon PA-C Work Phone: [facility] 06-14-2025 14:24-0400 Body height 165.[address] Xavier Ovalle MD Work Phone: [facility] 06-14-2025 14:24-0400 Body mass index (BMI) [Ratio] 31.1 kg/m2 Dr. Xavier Ovalle MD Work Phone: [facility] 06-14-2025 14:24-0400 Body weight 85.[address] Xavier Ovalle MD Work Phone: [facility] 06-14-2025 14:24-0400 Diastolic blood pressure 80 mm[Hg] Dr. Xavier Ovalle MD Work Phone: [facility] 06-14-2025 14:24-0400 Systolic blood pressure 124 mm[Hg] Dr. Xavier Ovalle MD Work Phone: [facility] 06-05-2025 12:52-0400 Body height 173 cm Ru Overton MD Work Phone: [facility] 06-05-2025 12:52-0400 Body height 172.72 cm Ru Overton MD Work Phone: [facility] 06-05-2025 12:52-0400 Body mass index (BMI) [Ratio] 27.47 kg/m2 Ru Overton MD Work Phone: [facility] 06-05-2025 12:52-0400 Body weight 82 kg Ru Overton MD Work Phone: [facility] 06-05-2025 12:52-0400 Body weight 81.65 kg Ru Overton MD Work Phone: [facility] 06-05-2025 12:52-0400 BP SITE #1 Ru Overton MD Work Phone: [facility] 06-05-2025 12:52-0400 Diastolic blood pressure 86 mm[Hg] Ru Overton MD Work Phone: [facility] 06-05-2025 12:52-0400 Heart rate 90 /min Ru Overton MD Work Phone: [facility] 06-05-2025 12:52-0400 HGHTCHNVIS Ru Overton MD Work Phone: [facility] 06-05-2025 12:52-0400 Systolic blood pressure 126 mm[Hg] Ru Overton MD Work Phone: [facility] 06-05-2025 12:52-0400 VITALSDONE Ru Overton MD Work Phone: [facility] 03-24-2025 11:19-0400 Body temperature 98.3 [degF] Dr. Xavier Ovalle MD Work Phone: [facility] 03-24-2025 11:19-0400 Diastolic blood pressure 68 mm[Hg] Dr. Xavier Ovalle MD Work Phone: [facility] 03-24-2025 11:19-0400 Heart rate 73 /min Dr. Xavier Ovalle MD Work Phone: [facility] 03-24-2025 11:19-0400 Respiratory rate 15 /min Dr. Xavier Ovalle MD Work Phone: [facility] 03-24-2025 11:19-0400 SaO2% (BldA) [Mass fraction] 98 % Dr. Xavier Ovalle MD Work Phone: [facility] 03-24-2025 11:19-0400 Systolic blood pressure 102 mm[Hg] Dr. Xavier Ovalle MD Work Phone: [facility] 12-24-2021 14:10-0400 Body temperature 98 [degF] Dr. Felix Ovalle Work Phone: [facility] Work Phone: 12-24-2021 14:10-0400 Diastolic blood pressure 80 mm[Hg] Dr. Felix Ovalle Work Phone: [facility] Work Phone: 12-24-2021 14:10-0400 Heart rate 112 /min Dr. Felix Ovalle Work Phone: [facility] Work Phone: 12-24-2021 14:10-0400 Respiratory rate 16 /min Dr. Felix Ovalle Work Phone: [facility] Work Phone: 12-24-2021 14:10-0400 SaO2% (BldA) [Mass fraction] 98 % Dr. Felix Ovalle Work Phone: [facility] Work Phone: 12-24-2021 14:10-0400 Systolic blood pressure 124 mm[Hg] Dr. Felix Ovalle Work Phone: [facility] Work Phone: NEGATED: Highlighted [id number] 12:05-0500 Body height 165.1 cm Venus Joel AT [facility] Work Phone: NEGATED: Highlighted [id number] 12:05-0500 Body height 165 cm Venus Joel AT [facility] Work Phone: NEGATED: Highlighted [id number] 12:05-0500 Body mass index (BMI) [Ratio] 34.07 kg/m2 Venus Joel AT [facility] Work Phone: NEGATED: Highlighted [id number] 12:05-0500 Body weight 92.53 kg Venus Joel AT [facility] Work Phone: NEGATED: Highlighted [id number] 12:05-0500 Body weight 93 kg Venus Joel AT [facility] Work Phone: Encounters Encounter Date Encounter Type Care Provider Facility Start: 08-08-2025 ambulatory Xavier Gomes lity:[facility] Start: 08-07-2025 In-person encounter Juan Pablo huertas PA-C Work Phone: [facility] Work Phone: Start: 08-07-2025 Visit out of hours Juan Pablo dallas PA-C Work Phone: [facility] Work Phone: Start: 07-06-2025 In-person encounter Juan Pablo huertas PA-C Work Phone: [facility] Work Phone: Start: 07-06-2025 Visit out of hours Juan Pablo dallas PA-C Work Phone: [facility] Work Phone: Start: 06-14-2025 End: 06-14-2025 Patient encounter procedure Ruma MAE -[facility] Work Phone: Start: 06-14-2025 End: 06-14-[address] Xavier Ovalle MD Work Phone: -[facility] Start: 06-14-[address] Ru Huerta MD -Physical Therapy Work Phone: Start: 06-05-2025 In-person encounter Ru Mgcregor MD Work Phone: [facility] Work Phone: Start: 06-05-2025 Visit out of hours Ru castro MD Work Phone: [facility] Work Phone: Start: 05-19-2025 Registered Referred [facility] -Laboratory Work Phone: Start: 05-19-2025 ambulatory Xavier Gomes lity:[facility] Start: 04-13-2025 End: 04-13-[address] Xavier Ovalle MD Work Phone: -Laboratory Start: 04-13-2025 End: 04-13-[address] Xavier Ovalle MD -Laboratory Work Phone: Start: 04-12-2025 End: 04-13-[address] Xavier Ovlale MD Work Phone: -Laboratory Specimen Start: 04-12-2025 End: 04-12-[address] Xavier Ovalle MD -Laboratory Specimen Work Phone: Start: 04-12-2025 End: 04-12-2025 ambulatory Xavier Ovalle Facility:[facility] Start: 04-12-2025 End: 04-12-2025 ambulatory Xavier Ovalle Facility:[facility] Start: 04-06-2025 End: 04-10-2025 ambulatory Xavier Ovalle Facility:[facility] Start: 03-24-2025 End: 03-24-2025 Patient encounter procedure Jaida Pepper CANDLE WICKERBrandiC -[facility] Work Phone: Start: 03-24-2025 End: 03-24-[address] Xavier Ovalle MD Work Phone: [facility] Start: 03-15-2025 End: 03-15-2025 Patient encounter procedure Jay Mason PA -[facility] Virtual Visit Work Phone: Start: 03-15-2025 End: 03-15-[address] Xavier Ovalle MD Work Phone: [facility] Work Phone: Start: 02-14-2025 End: 02-14-2025 ambulatory Aki Hall Facility:[facility] Start: 02-14-2025 End: 02-14-2025 Discharged Recurring Aki Hall PA -Physical Therapy Work Phone: Start: 11-07-2024 End: 11-07-2024 ambulatory Xavier Ovalle Facility:[facility] Start: 08-31-2024 End: 08-31-2024 ambulatory Xavier Ovalle Facility:[facility] Start: 08-10-2023 End: 08-10-2023 ambulatory [facility] Work Phone: Start: 08-10-2023 End: 08-10-2023 Patient encounter procedure [facility]-Outpatient Breast Imaging Work Phone: Start: 06-10-2023 Registered Referred [facility] Start: 02-02-2022 End: 02-02-[address] Felix Ovalle Work Phone: [facility]-Physical Therapy Start: 12-24-2021 End: 12-24-[address] Felix Ovalle Work Phone: [facility] Start: 12-24-2021 End: 12-24-[address] Felix Ovalle Work Phone: [facility] Virtual Visit Start: 08-21-2020 End: 08-21-2020 Patient encounter procedure External Provider [facility] Start: 08-21-2020 Results Only External Provider Exter nal-[facility] Start: 07-15-2009 End: 07-15-2009 Patient encounter procedure Garcia Saunders Work Phone: [facility] Start: 07-15-2009 Results Only Garcia Saunders Work Phone: [facility] Procedures Date Procedure Procedure Detail Performing Clinician Start: 08-07-2025 Blood pressure withi n normal parameters - no follow-up required Juan Pablo Dillon PA-C Work Phone: Start: 08-07-2025 BMI documented as above normal parameters - follow-up documented Juan Pablo Dillon PA-C Work Phone: Start: 08-07-2025 Current tobacco non-user cad cap copd pv dm Juan Pablo Dillon PA-C Work Phone: Start: 08-07-2025 Documentation of current medications Juan Pablo Dillon PA-C Work Phone: Start: 08-07-2025 Pain assessment documented as positive - no follow-up/reason not given Juan Pablo Dillon PA-C Work Phone: Start: 07-06-2025 Blood pressure withi n normal parameters - no follow-up required Juan Pablo Dillon PA-C Work Phone: Start: 07-06-2025 BMI documented as above normal parameters - follow-up documented Juan Pablo Dillon PA-C Work Phone: Start: 07-06-2025 Current tobacco non-user cad cap copd pv dm Juan Pablo Dillon PA-C Work Phone: Start: 07-06-2025 Documentation of current medications Juan Pablo Shahid PA-C Work Phone: Start: 07-06-2025 Pain assessment documented as positive - no follow-up/reason not given Juan Pablo Shahid PA-C Work Phone: Start: 06-05-2025 Blood pressure withi n normal parameters - no follow-up required Ru Overton MD Work Phone: Start: 06-05-2025 BMI documented as above normal parameters - follow-up documented Ru Overton MD Work Phone: Start: 06-05-2025 Current tobacco non-user cad cap copd pv dm Ru Overton MD Work Phone: Start: 06-05-2025 Documentation of current medications Ru Overton MD Work Phone: Start: 06-05-2025 Pain assessment documented as positive - follow-up documented Ru Overton MD Work Phone: Start: 06-05-2025 Physical therapy management Ru Overton MD Work Phone: Start: 05-19-2025 Serum inorganic phosphate measurement Dr[address] Xavier Ovalle MD Work Phone: Start: 05-19-2025 Urnls dip stick/tabl et reagent auto microscopy Dr. Xavier Ovalle MD Work Phone: Start: 04-13-2025 End: 04-13-2025 Polymerase chain reaction analysis Dr. Xavier Ovalle MD Work Phone: Start: 04-13-2025 End: 04-13-[address] Xavier Ovalle MD Work Phone: Start: 04-13-[address] Artie Ovalle MD Work Phone: Start: 04-12-2025 Urnls dip stick/tabl et reagent auto microscopy Dr. Xavier Ovalle MD Work Phone: Start: 04-12-2025 Polymerase chain reaction analysis Dr. Xavier Ovalle MD Work Phone: Start: 04-12-[address] Artie Ovalle MD Work Phone: Start: 08-10-2023 Screening mammography Start: 11-07-2021 End: 11-07-2021 BP scrn no perf at interval Julius Hinds PA-C Work Phone: Start: 11-07-2021 End: 11-07-2021 Calc BMI abv up noemy f/u Julius Hinds PA-C Work Phone: Start: 11-07-2021 End: 11-07-2021 Current tobacco non-user cad cap copd pv dm Julius Hinds PA-C Work Phone: Start: 11-07-2021 End: 11-07-2021 Docrev cur meds by elig clin Julius Hinds PA-C Work Phone: Start: 11-07-2021 End: 11-07-2021 Pain doc pos and plan Julius Valdivia Work Phone: Start: 11-07-2021 End: 11-07-2021 Patient encounter procedure Julius Hinds PA-C Work Phone: Start: 08-21-2020 EXTERNAL IMAGING [employer] al Provider Start: 07-15-2009 CONVERTED SURGICAL PATHOLOGY Garcia Saunders Work Phone: H/O: hysterectomy Hx of hysterectomy Dr. Felix Ovalle Work Phone: Comment on above: 2010 H/O: surgery History of repai r of rectocele Dr. Felix Ovalle Work Phone: Comment on above: 2010 History of reduction of breast Hx of bilateral breast reduction surgery Dr. Felix Ovalle Work Phone: History of tonsillectomy History of tonsillectomy and adenoidectomy Dr. Felix Ovalle Work Phone: NEGATED: Highlighted rowStart: 11-07-2021 End: 11-07-2021 Documentation of current medications Venus Maldonado AT Plan of Treatment Date Care Activity Detail Author Start: 09-04-2025 End: 09-04-[facility] Work Phone: Start: 08-14-2025 End: 08-14-2025 [facility] Work Phone: Start: 08-07-2025 End: 08-07-2025 [facility] Work Phone: Start: 07-06-2025 End: 07-06-2025 [facility] Work Phone: Start: 12-12-2021 End: 12-12-2021 Patient encounter procedure Appointment [facility] Work Phone: Start: 11-07-2021 End: 11-07-2021 Patient encounter procedure Appointment [facility] Work Phone: Start: 05-28-2020 Influenza vaccination INFLUENZA (#1) [facility] Start: 2017 Mammography MAMMOGRAM [facility] Start: 2007 HPV TESTING HPV TESTING [facility] Start: 1998 PAP TESTING PAP TESTING [facility] Start: 02-08-1996 Urine microalbumin profile DTAP,TDAP,TD (1 - Tdap) [facility] Start: 1995 HEPATITIS C SCREENING HEPATITIS C SCREENING [facility] Start: 1995 HIV SCREENING HIV SCREENING [facility] MG Breast - bilatera l Screening [facility] Immunizations Immunization Date Immunization Notes Care Provider Fa cili 07-17-2024 influenza, seasonal, injectable, preservative free Dr. Xavier Ovalle MD Work Phone: [facility] 08-16-2023 influenza, injectabl e, quadrivalent, preservative free Dr. Xavier Ovalle MD Work Phone: [facility] 07-20-2022 influenza, injectabl e, quadrivalent, preservative free [facility] 07-30-2021 influenza, injectabl e, quadrivalent, preservative free [facility] 07-30-2021 influenza, seasonal, injectable Dr. Felix Ovalle Work Phone: [facility] Work Phone: 07-15-2020 influenza, injectabl e, quadrivalent, preservative free [facility] 07-15-2020 influenza, seasonal, injectable Dr. Felix Ovalle Work Phone: [facility] Work Phone: 08-16-2019 influenza, injectabl e, quadrivalent, preservative free [facility] 08-16-2019 influenza, seasonal, injectable Dr. Felix Ovalle Work Phone: [facility] Work Phone: 08-01-2018 influenza, injectabl e, quadrivalent, preservative free [facility] 08-01-2018 influenza, seasonal, injectable Dr. Felix Ovalle Work Phone: [facility] Work Phone: 08-25-2017 influenza, injectabl e, quadrivalent, preservative free [facility] 08-25-2017 influenza, seasonal, injectable Dr. Felix Ovalle Work Phone: [facility] Work Phone: 08-13-2016 influenza, injectabl e, quadrivalent, preservative free [facility] 08-13-2016 influenza, seasonal, injectable Dr. Felix Ovalle Work Phone: [facility] Work Phone: 07-25-2015 influenza, injectabl e, quadrivalent, preservative free [facility] 07-25-2015 influenza, seasonal, injectable Dr. Felix Ovalle Work Phone: [facility] Work Phone: 07-18-2014 influenza, injectabl e, quadrivalent, preservative free [facility] 07-18-2014 influenza, seasonal, injectable Dr. Felix Ovalle Work Phone: [facility] Work Phone: 10-04-[address] 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 2016 Unknown [id number] [address] [facility] PREFERRED [id number] 2008-2013 Indemnity [id number] Unknown [id number] Unknown [id number] Unknown [id number] Unknown [id number] Unknown [id number] Unknown [id number] Unknown [id number] Unknown [id number] Unknown [id number] Unknown [id number] Unknown [id number] Unknown [id number] Social History Date Type Detail Facility Tobacco smoking status UTIS Unknown if ever smoked [facility] Sex Assigned At Not on file [facility] Start: 10-21-2009 End: 06-14-2025 Tobacco smoking status NHIS Never smoker [facility] Start: 10-21-2009 Alcohol intake 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) [facility] Start: 12-24-2021 End: 10-25-2022 Assertion Unknown if ever smoked [facility] Work Phone: Start: 04-10-2019 Non-smoker [facility] Start: 1975 Sex Assigned At Female [facility] Start: 06-05-2025 End: 08-07-2025 social history reviewed E&M Done [facility] NEGATED: Highlighted rowStart: 11-07-2021 End: 11-07-2021 Employment detail Employment detail [facility] Work Phone: Goals Date Patient Goal Desired Activity /State Clinical Notes 03-15-2025 to 06-14-2025 Note Date & Type Note Facility 06-14-2025 Progress note [facility] 06-14-2025 Progress note Note Date/Time June 14, 2025 2:55pm [facility] [address], [address] [place] [address] OFFICE VISIT Date of Service: 06/14/25 MR#: [id number] Acct: [id number] Name: CARLOS MORIN Rep # : [id number] : 1975 Provider: TU Beckett Age/Sex: 50/F Location: [facility] [place] Status: Signed Intake Vital Signs 09/15/21 09:25 06/14/25 14:24 Height 5 ft 5 in 5 ft 5 in Weight: 187 lb 8 oz BMI 31.1 BP 124/80 H 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 Hand Required: No Is patient in pain?: No Allergies sulfamethoxazole (From Bactrim) Allergy (Unknown, Verified 06/14/25 14:26) Rash trimethoprim (From Bactrim) Allergy (Unknown, Verified 06/14/25 14:26) Rash amoxicillin trihydrate (From Augmentin) Allergy (Verified 06/14/25 14:26) Other potassium clavulanate (From Augmentin) Allergy (Verified 06/14/25 14:26) Other codeine Adverse Reaction (Verified 06/14/25 14:26) Vomiting Sulfa (Sulfonamide Antibiotics) Adverse Reaction (Verified 06/14/25 14:26) Mucosal lesions Medications ?Medication ?Instructions ?Recorded ?Confirmed ?Type cetirizine 10 mg capsule (Zyrtec) 10 mg PO DAILY PRN A llergies 10/24/18 06/14/25 History ibuprofen 100 mg tablet 200 mg PO Q6H 09/29/2006/14 History albuterol sulfate 90 mcg/actuation 1 inh inhalation Q6 H PRN shortness 03/15/25 06/14/25 Rx aerosol inhaler of breath or wheezing #6.7 g sarita fluconazole 150 mg tablet 150 mg PO ONCE #2 tabs 03/2406/14/25 Rx estradiol 0.01% (0.1 mg/gram) See Rx Instructions vagi nal DAILY 06/14/25 06/14/25 Rx vaginal cream #42.5 grams Post menopausal: No Patient : No : No Control Method: hyst PFS Medical History Cellulitis of great toe, right Thyroid disease High cholesterol Gastric reflux Non-smoker History of pain when walking History of irregular heartbeat Rectal fissure Thyroid nodule Hemorrhoids Constipation Anxiety Depression Surgical History History of cardiac catheterization Status post hemorrhoidectomy Hx of bilateral breast reduction surgery History of repair of rectocele Hx of hysterectomy History of tonsillectomy and adenoidectomy Family History Mother Heart disease Father Heart disease High cholesterol Grandmother Myocardial infarction Social History (Updated 06/14/25 @ 14:21 by Katelyn Lopes) household members: spouse and children housing: house current occupational status: employed 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 She here to establish; reports she has had 2 UTI's since September. She reports she has had a new partner; is sexually active with him. Had STD testing which all came back negative. Not sure if correlated to new partner. Does have history of hysterectomy (adenomyosis). 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 Last PAP: prior to hyst History of abnormal PAP: none Last mammogram: 2022; normal. History of abnormal mammogram: none Colon cancer screenin; normal. Other preventative health care screenings: Dr. Ovalle; PCP. Female Reproductive History Questions: metrorrhagia: No, sexually active: Yes, dyspareunia: No and PCB: No ROS Const Constitutional: Denies chills, fatigue, fever(s), headache(s) or weight loss Eyes Eyes: Denies change in vision ENT ENT: Denies dizziness Cardio Card: Denies chest pain at rest or palpitations Resp Resp: Denies cough or dyspnea GI GI: Denies abdominal pain, constipation or nausea : Denies difficulty voiding, dysuria, hematuria, nipple discharge, pelvic pain, prolapse symptoms, urinary incontinence, vaginal discharge, vaginal dryness, vaginal odor or vaginal pruritus Skin Skin/Breast: Denies alopecia, rash, breast mass, breast pain, breast skin changes or nipple discharge Neuro Neuro: Denies dizziness Psych Psych: Denies anxiety or depression Endo Endo: Denies cold intolerance, excessive sweating or heat intolerance Exam Const General: cooperative, healthy appearing, no acute distress and well groomed Nutritional Appearance: well nourished Orientation: oriented x3 HENMT Head: normal to inspection and normocephalic Neck Thyroid: thyroid normal Chest Other: Breast exam deferred; left arm post surgical and in sling Resp Effort & Inspection: normal respiratory effort and able to speak in complete sentences GI Inspection: normal to inspection Palpation: soft and no hepatosplenomegaly External Female Exam: normal external appearance and normal appearance of the urethra Urethra: normal appearance of the urethra Speculum Exam - Vagina: normal appearance of the vagina, normal vaginal discharge, no lesions and nontender Speculum Exam - Cervix: absent Bimanual Exam- Vagina & Uterus: normal bimanual exam and uterus absent Bimanual Exam- Adnexa, other: no masses Skin General: no rashes or lesions noted Neuro General: patient oriented x3 Psych Appearance: well kempt Affect: normal affect Attitude: cooperative Coding Level of Care Code Off vis,est,prev 40-64yrs Diagnoses Women's annual routine gynecological examination Z01.419 Recurrent UTI N39.0 Assessment and Plan Assessment and Plan (1) Women's annual routine gynecological examination: Status: Acute Plan: Breast exam deferred (post surgical and unable to complete appropriately) Pelvicexam complete. PAP due: hyst Mammogram due: orders placed to obtain Advised self breast exams monthly. Contraception: hyst Advised incorporating healthy dietary choices such as increase in lean meats, fruits/vegetables, less processed food/sat fat/trans fats. Increase exercise to 30 minutes per day/5 days a week. This can include both weight bearing exercisesand/or brisk walking. Follow up with PCP for further preventative health screenings. Follow up 1 year for repeat annual obstetrics/gynecology nurse exam. Call office sooner with questions or concerns. (2) Recurrent UTI: Status: Acute Plan: Expectant management options advised; incorp dmannose. estradiol cream to help prevent. Discussed risks of starting; advised on how toadminister as well as expecatation of treatment. Unsure if she will actually start or not. If does then to call office for followup if no improvement in symptoms. Orders: Orders GROVER SHIN (ROBSON)Venkat/IVORY CHACKO Today Z12.31 - Encounter for screening mammogram for malignant neoplasm of breast Medications: New estradiol 0.01%(0.1mg/gram) pea sized amount using finger tip method every nightx 2 weeks then 2-3 times a week there after. 42.5 grams 0RF Plan Details Goals & Barriers: Goals Decrease spasm Decrease inflammation Improve ROM Decrease radiculopathy Barriers lumbar disc herniation 06/14/25 1501 <Electronically signed by Ruma MAE> Date _ Ruma MAE Cosigner Signature: Date (if applicable) CC: ~ [facility] Work Phone: 1(850) 435-648106-19-2025 Evaluation note* Diagnosis Onset Date Resolution Status Admit Date Acute bronchitis acute February 9:09am [facility] Work Phone: 1(687) 167-230906-19-2025 Evaluation note* Diagnosis Onset Date Resolution Status Admit Date Acute bronchitis acute February 9:09am Perforated ear drum acute March 24, 2025 11:02am [place] [facility] Work Phone: 1(128) 104-272706-19-2025 Evaluation note* Diagnosis Onset Date Resolution Status Admit Date Acute bronchitis acute February 9:09am Perforated ear drum acute March 24, 2025 11:02am Recurrent UTI acute May 282024 2:15pm Women's annual routine gynecological examination acute Sept2024 2:15pm [facility] Work Phone: 1(220) 126-571806-19-2025 [facility] [address] [place] [address] OFFICE VISIT Date of Service: 03/15/25 MR#: [id number] Acct: [id number] Patient: CARLOS MORIN p #: [id number] : 1975 Provider: SUSHIL Mascorro Age/Sex: 50/F Location: [facility] [place] Status: Signed Intake Vital Signs 09/15/21 09:25 Height 1.65 m Intake Visit Reasons: Cough Chief Complaint: cough Allergies sulfamethoxazole (From Bactrim) Allergy (Unknown, Verified 08/31/24 12:19) Rash trimethoprim (From Bactrim) Allergy (Unknown, Verified 08/31/24 12:19) Rash amoxicillin trihydrate (From Augmentin) Allergy (Verified 08/31/24 12:19) Other potassium clavulanate (From Augmentin) Allergy (Verified 08/31/24 12:19) Other codeine Adverse Reaction (Verified 08/31/24 12:19) Vomiting Sulfa (Sulfonamide Antibiotics) Adverse Reaction (Verified 08/31/24 12:19) Mucosal lesions PFSH Medical History Anxiety Cellulitis of great toe, right Constipation Depression Gastric reflux Hemorrhoids High cholesterol History of irregular heartbeat History of pain when walking Non-smoker Rectal fissure Thyroid disease Thyroid nodule Surgical History History of cardiac catheterization History of repair of rectocele History of tonsillectomy and adenoidectomy Hx of bilateral breast reduction surgery Hx of hysterectomy Status post hemorrhoidectomy Family History Mother Heart disease Father Heart disease High cholesterol Grandmother Myocardial infarction Social History household members: spouse and children housing: house current occupational status: employed Smoking Status: Never smoker second hand exposure: No alcohol intake: never substance use type: does not use caffeine: Yes what type of physical activity do you participate in: none frequency: does not exercise seatbelt use: always do you feel safe at home: Yes HPI HPI Chief Complaint: cough Details: CARLOS MORIN, is a 50 F who presents to the office today for cough. Pt hasbeen sick about 1 week. She has had a cough that has been productive of brown sputum. She had this last week and it started to get better and then it came back. She has some chest tightness and sob. She has no sinus pain or pressure, no ear ache, no sore throat, no congestion. She has no fever/chills/body ache. She took a home covid test which was negative. She has tried some OTCs and her albuterol inhaler that she has for exercise induced asthma which have helped minimally. ROS Const Constitutional: No chills, fatigue or fever(s) ENT ENT: No ear or mastoid pain, ear pressure, nasal congestion, sinus pressure, sinus pain or sore throat Resp Respiratory: Positive for cough Cough: Yes productive, shortness of breath and other (chest tightness) Endo Endocrine: No fatigue Exam Const General: cooperative, healthy appearing, comfortable, no acute distress, well developed and well groomed Nutritional Appearance: average body habitus and well nourished Orientation: alert, awake and oriented x3 HENMT Head: normocephalic and atraumatic Face and sinus: no sinus tenderness Resp Effort & Inspection: normal respiratory effort, able to speak in complete sentences, symmetric chest movement and no cough Coding Level of Care Code Off vis,est,level 3 Diagnoses Acute bronchitis J20.9 Assessment and Plan Assessment and Plan (1) Acute bronchitis: Status: Acute Plan: Cough with brownish sputum production, chest tightness, and some SOB. Sick about1 week, started to improve on its own and then worsened again. Pt took home covid test which was negative. She has tried some OTCs and her albuterol inhalerthat she has for exercise induced asthma which helped minimally. At this point recommend adding azithromycin. Albuterol inhaler refilled at patients request aswell. Disclaimer: This visit was performed virtually via live audio and video at the request of the patient. As such the physical exam and testing is limited by whatis able to be seen through the patient'scamera and lighting which may vary in quality, and limited by what the patient is able to perform via clinician instruction. If there is no significant improvement or new complications, the patient should follow up [id number] with a clinician of the appropriate level of care. Medications: New azithromycin (Zithromax Z-Lennox) take 500 mg today (day 1), then 250 mg for 4 days(days 2-5) PO 6 tabs 0RF albuterol sulfate 90 mcg/actuation 1 inh inhalation Q6H PRN 6.7 grams 0RF shortness of breath or wheezing Discontinued fluconazole Take at onset of symptoms, if no improvement repeat in 72 hours Discontinued Reason: Pt no longer taking 150 mg PO Q3D 2 tabs 0RF azithromycin Discontinued Reason: Pt no longer taking take 500 mg today (day 1), then 250 mg for 4 days (days 2-5) PO 6 tabs 0RF Plan Details Goals & Barriers: Goals Decrease spasm Decrease inflammation Improve ROM Decrease radiculopathy Barriers lumbar disc herniation 03/15/25 0934 A PA> Date _ Jay LING Cosigner Signature: Date (if applicable) CC: ~ [facility]06-19-2025 Progress note Author Jay Mason [facility] Note Date/Time March 15, 2025 9:34 am [facility] [address] [place] [address] OFFICE VISIT Date of Service: 03/15/25 MR#: [id number] Acct: [id number] Patient: CARLOS MORIN Kelsea p #: [id number] : 1975 Provider: SUSHIL Mascorro Age/Sex: 50/F Location[place] [facility] [place]: Signed Intake Vital Signs 09/15/21 09:25 Height 1.65 m Intake Visit Reasons: Cough Chief Complaint: cough Allergies sulfamethoxazole (From Bactrim) Allergy (Unknown, Verified 08/31/24 12:19) Rash trimethoprim (From Bactrim) Allergy (Unknown, Verified 08/31/24 12:19) Rash amoxicillin trihydrate (From Augmentin) Allergy (Verified 08/31/24 12:19) Other potassium clavulanate (From Augmentin) Allergy (Verified 08/31/24 12:19) Other codeine Adverse Reaction (Verified 08/31/24 12:19) Vomiting Sulfa (Sulfonamide Antibiotics) Adverse Reaction (Verified 08/31/24 12:19) Mucosal lesions [facility] Medical History Anxiety Cellulitis of great toe, right Constipation Depression Gastric reflux Hemorrhoids High cholesterol History of irregular heartbeat History of pain when walking Non-smoker Rectal fissure Thyroid disease Thyroid nodule Surgical History History of cardiac catheterization History of repair of rectocele History of tonsillectomy and adenoidectomy Hx of bilateral breast reduction surgery Hx of hysterectomy Status post hemorrhoidectomy Family History Mother Heart disease Father Heart disease High cholesterol Grandmother Myocardial infarction Social History household members: spouse and children housing: house current occupational status: employed Smoking Status: Never smoker second hand exposure: No alcohol intake: never substance use type: does not use caffeine: Yes what type of physical activity do you participate in: none frequency: does not exercise seatbelt use: always do you feel safe at home: Yes HPI HPI Chief Complaint: cough Details: CARLOS MORIN, is a 50 F who presents to the office today for cough. Pt hasbeen sick about 1 week. She has had a cough that has been productive of brown sputum. She had this last week and it started to get better and then it came back. She has some chest tightness and sob. She has no sinus pain or pressure, no ear ache, no sore throat, no congestion. She has no fever/chills/body ache. She took a home covid test which was negative. She has tried some OTCs and her albuterol inhaler that she has for exercise induced asthma which have helped minimally. ROS Const Constitutional: No chills, fatigue or fever(s) ENT ENT: No ear or mastoid pain, ear pressure, nasal congestion, sinus pressure, sinus pain or sore throat Resp Respiratory: Positive for cough Cough: Yes productive, shortness of breath and other (chest tightness) Endo Endocrine: No fatigue Exam Const General: cooperative, healthy appearing, comfortable, no acute distress, well developed and well groomed Nutritional Appearance: average body habitus and well nourished Orientation: alert, awake and oriented x3 HENMT Head: normocephalic and atraumatic Face and sinus: no sinus tenderness Resp Effort & Inspection: normal respiratory effort, able to speak in complete sentences, symmetric chest movement and no cough Coding Level of Care Code Off vis,est,level 3 Diagnoses Acute bronchitis J20.9 Assessment and Plan Assessment and Plan (1) Acute bronchitis: Status: Acute Plan: Cough with brownish sputum production, chest tightness, and some SOB. Sick about1 week, started to improve on its own and then worsened again. Pt took home covid test which was negative. She has tried some OTCs and her albuterol inhalerthat she has for exercise induced asthma which helped minimally. At this point recommend adding azithromycin. Albuterol inhaler refilled at patients request aswell. Disclaimer: This visit was performed virtually via live audio and video at the request of the patient. As such the physical exam and testing is limited by whatis able to be seen through the patient's camera and lighting which may vary in quality, and limited by what the patient is able to perform via clinician instruction. If there is no significant improvement or new complications, the patient should follow up [id number] with a clinician of the appropriate level of care. Medications: New azithromycin (Zithromax Z-Lennox) take 500 mg today (day 1), then 250 mg for 4 days(days 2-5) PO 6 tabs 0RF albuterol sulfate 90 mcg/actuation 1 inh inhalation Q6H PRN 6.7 grams 0RF shortness of breath or wheezing Discontinued fluconazole Take at onset of symptoms, if no improvement repeat in 72 hours Discontinued Reason: Pt no longer taking 150 mg PO Q3D 2 tabs 0RF azithromycin Discontinued Reason: Pt no longer taking take 500 mg today (day 1), then 250 mg for 4 days (days 2-5) PO 6 tabs 0RF Plan Details Goals & Barriers: Goals Decrease spasm Decrease inflammation Improve ROM Decrease radiculopathy Barriers lumbar disc herniation 03/15/25 9026 <Electronically signed by Jay Isabella P A PA> Date _ Jay Mason SUSHIL LING Cosigner Signature: Date (if applicable) CC: ~ [facility] Work Phone: Evaluation noteThere may be information available, but it has not been provided by the sender.[facility] Work Phone: Evaluation note* Diagnosis Onset Date Resolution Status Cellulitis of great toe, right acute [facility] Work Phone: Evaluation noteNo assessment information available [facility] Work Phone: Evaluation note* Diagnosis Onset Date Resolution Status Admit Date Acute bronchitis acute February 9:09am [facility] Work Phone: Instructions* Instruction Description Start Date CompletedPatient advised to follow-up with Primary Care Physician for BMI management. [facility] Work Phone: Reason for referral (narrative)No reason for referral information availableBlPorterville [facility] Work Phone: Chief Complaint Chief Complaint Description Start Date right hip post Right hip sco pe with labral repair acetabuloplasty chondroplasty synovectomy femoroplasty capsular closure. on 10/23/2021 Preliminary chief co mplaint data, not yet signed by the author as of Advance Directives No Advanced Directives Records Found Advance Directive Response Recorded Date/ Time Living Will No September 15 10:25am Power of Nanoscience Technician No September 15, 2021 10:25am Advance Directive Response Recorded Date/ Time Living Will No September 15 9:25am Power of Nanoscience Technician No September 15, 2021 9:25am Family History No Family History Records Found Relationship Condition Age at Onset Recorded Date/T jose alberto mother Cardiac disease Unknown father Cardiac disease Unknown High blood cholesterol Unknown grandmother Myocardial infarction Unknown Family Member Condition Father Alive Mother Hypothyroidism Mother Alive Family Member Condition Father Alive Mother Hypothyroidism Mother Alive Family Member Condition Father Alive Mother Hypothyroidism Mother Alive Chief Complaint and Reason for Visit Chief Complaint Skin complaints INFECTED TOENAIL STRAIN R HIP,JT DISORDER R HIP.RX HERE Reason for Visit Cellulitis of great toe, right Chief Complaint 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 P T HAS RX February 14, 2025 1:00pm Cough March 15, 2025 9:09 am Reason for Visit Admit Date Acute bronchitis March 15, 2025 9:09 am Chief Complaint Admit Date L SHLDR IMPINGE/ARTH/BICEP TENDONITIS. 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 2:15pm Reason for Visit Admit Date Acute bronchitis March 15, 2025 9:09 am Perforated ear drum March 24, 2025 11:0 2am Recurrent UTI June 14, 2025 2:15pm Women's annual routine gynecological exa mination June 14, 2025 2:15pm Summary Purpose Additional Source Comments Source Comments (unrecognize d section and content) In the event this informatio n is protected by the Federal Confidentiality of Alcohol and Drug Abuse Patient Records regulations: The Federal rules restrict any use of the information to criminally investigate or prosecute any alcohol or drug abuse patient.[facility] the event this information is protected by the Federal Confidentiality of Alcohol and Drug Abuse Patient Records regulations: The Federal rules restrict any use of the information to criminally investigate or prosecute any alcohol or drug abuse patient.[facility] Reason for Visit (unrecogniz ed section and content) Reason For Visit Description Postop - 1st visit Preliminary reason f or visit data, not yet signed by the author as of right hip post Right hip sco pe with labral repair acetabuloplasty chondroplasty synovectomy femoroplasty capsular closure. on 10/23/2021 Care Teams (unrecognized sec tion and content) Team Status: Active Member Role Status Dates Dr. Sunil Wade MD Family Provider Active Dr. Felix Ovalle MD Primary Care Provider Activ e Team Status: Active Member Role Status Dates Dr. Felix Ovalle MD Primary Care Provider Activ e Health Risk Assessment Attending Provider, Referring Kacey moreau Active Team Status: Inactive Member Role Status Dates Dr. Felix Ovalle MD Primary Care Provider Activ e Tori Corona CANDLE WICKER, CANDLE WICKER-C Attending Provider, Referring Pro gabo Active Team Status: Active Member Role Status Dates Dr. Xavier Ovalle MD Primary Care Provider Acti ve Team Status: Inactive Member Role Status Dates Dr. Xavier Ovalle MD Primary Care Provider Acti ve Start: February 14, 2025 End: February 14, 2025 SUSHIL Benites Attending Provider Active Start : February 14, 2025 End: February 14, 2025 SUSHIL Benites Referring Provider Active Start : February 14, 2025 End: February 14, 2025 Team Status: Inactive Member Role Status Dates Dr. Xavier Ovalle MD Primary Care Provider Acti ve Start: March 15, 2025 End: March 15, 2025 SUSHIL Reddy Attending Provider Active Sta rt: March 15, 2025 End: March 15, 2025 Team Status: Active Member Role/Relationship Status Dates Dr. Xavier Ovalle MD Primary Care Provider Acti ve Team Status: Inactive Member Role/Relationship Status Dates Dr. Xavier Ovalle MD Primary Care Provider Acti ve Start: February 14, 2025 End: February 14, 2025 SUSHIL Benites Attending Provider Active Start : February 14, 2025 End: February 14, 2025 SUSHIL Benites Referring Provider Active Start : February 14, 2025 End: February 14, 2025 Team Status: Inactive Member Role/Relationship Status Dates Dr. Xavier Ovalle MD Primary Care Provider Acti ve Start: March 15, 2025 End: March 15, 2025 SUSHIL Reddy Attending Provider Active Sta rt: March 15, 2025 End: March 15, 2025 Team Status: Inactive Member Role/Relationship Status Dates Dr. Xavier Ovalle MD Primary Care Provider Acti ve Start: March 24, 2025 End: March 24, 2025 Dr. Xavier Ovalle MD Referring Provider Active Start: March 24, 2025 End: March 24, 2025 TU Osborne Attending Provider Active Start: March 24, 2025 End: March 24, 2025 Team Status: Inactive Member Role/Relationship Status Dates Dr. Xavier Ovalle MD Primary Care Provider Acti ve Start: April 12, 2025 End: April 12, 2025 Dr. Xavier Ovalle MD Attending Provider Active Start: April 12, 2025 End: April 12, 2025 Team Status: Active Member Role/Relationship Status Dates Dr. Xavier Ovalle MD Primary Care Provider Acti ve Start: April 13, 2025 Dr. Xavier Ovalle MD Attending Provider Active Start: April 13, 2025 Dr. Xavier Ovalle MD Referring Provider Active Start: April 13, 2025 Team Status: Inactive Member Role/Relationship Status Dates Dr. Xavier Ovalle MD Primary Care Provider Acti ve Start: April 13, 2025 End: April 13, 2025 Dr. Xavier Ovalle MD Attending Provider Active Start: April 13, 2025 End: April 13, 2025 Dr. Xavier Ovalle MD Referring Provider Active Start: April 13, 2025 End: April 13, 2025 Team Status: Active Member Role/Relationship Status Dates Dr. Xavier Ovalle MD Primary care physician Act mckenzie Team Status: Inactive Member Role/Relationship Status Dates Dr. Xavier Ovalle MD Primary care physician Act mckenzie Start: March 15, 2025 End: March 15, 2025 SUSHIL Reddy Attending physician Active St art: March 15, 2025 End: March 15, 2025 Team Status: Inactive Member Role/Relationship Status Dates Dr. Xavier Ovalle MD Primary care physician Act mckenzie Start: March 24, 2025 End: March 24, 2025 Dr. Xavier Ovalle MD Referring Provider Active Start: March 24, 2025 End: March 24, 2025 TU Osborne Attending physician Active Start: March 24, 2025 End: March 24, 2025 Team Status: Inactive Member Role/Relationship Status Dates Dr. Xavier Ovalle MD Primary care physician Act mckenzie Start: April 12, 2025 End: April 12, 2025 Dr. Xavier Ovalle MD Attending physician Active Start: April 12, 2025 End: April 12, 2025 Team Status: Inactive Member Role/Relationship Status Dates Dr. Xavier Ovalle MD Primary care physician Act mckenzie Start: April 13, 2025 End: April 13, 2025 Dr. Xavier Ovalle MD Attending physician Active Start: April 13, 2025 End: April 13, 2025 Dr. Xavier Ovalle MD Referring Provider Active Start: April 13, 2025 End: April 13, 2025 Team Status: Active Member Role/Relationship Status Dates Dr. Xavier Ovalle MD Primary care physician Act mckenzie Start: May 19, 2025 Health Risk Assessment Attending physician Active Start: May 19, 2025 Health Risk Assessment Referring Provider Active Start: May 19, 2025 Team Status: Active Member Role/Relationship Status Dates Dr. Xavier Ovalle MD Primary care physician Act mckenzie Start: June 14, 2025 Dr. Ru Overton MD Attending physician Active Start: June 14, 2025 Dr. Ru Overton MD Referring Provider Active Start: June 14, 2025 Team Status: Inactive Member Role/Relationship Status Dates Dr. Xavier Ovalle MD Primary care physician Act mckenzie Start: June 14, 2025 End: June 14, 2025 Dr. Xavier Ovalle MD Referring Provider Active Start: June 14, 2025 End: June 14, 2025 TU Amado Attending physician Active Start: June 14, 2025 End: June 14, 2025 INFORMATION SOURCE (unrecogn ized section and content) DATE CREATED AUTHOR 08/09/2025 [facility] FOR RECORDS PERTAINING TO PATIENTS WHO ARE OR HAVE BEEN ENROLLED IN A CHEMICAL DEPENDENCY/SUBSTANCEABUSE PROGRAM, SOME INFORMATION MAY BE OMITTED. This clinical summary was aggregated from multiple sources. Caution should be exercised in using it in the provision of clinical care. This summary normalizes information from multiple sources, and as a consequence, information in this document may materially change the coding, format and clinical context of patient data. In addition, data may be omitted in some cases. CLINICAL DECISIONS SHOULD BE BASED ON THE PRIMARY CLINICAL RECORDS. [employer] provides no warranty or guarantee of the accuracy or completeness of information in this document.
== END | disposition home or self-care (01) ==
LOC: LABSPEC 09:52
PROVIDERS: PCP Family Medicine; Visit Provider Physician Assistant
DX: R30.0 Dysuria (principal)
CPT/HCPCS: 87077; 87086; 87088; 87186

== ENCOUNTER 2025-09-03 12:00 | Outpatient (RCR) | payer OTHER, SELFPAY ==
--- NOTE | 2025-06-11 10:48 | HP.PTEVAL_ITS ---
Patient's Visit Information Visit Information Visit Information: CARLOS MORIN is a 50 year old F referred to Physical Therapy by Dr. Ru Overton MD with a diagnosis of biceps tendinitis L shoudler s/p arthro biceps tenodesis and clean 05/21. Date of Evaluation: 06/11/25 Physical Therapist: Chris Conde, DPT, OCS, CSCS Visit Plan Frequency: 2-3x /Week Duration: 3 Months Plan: 2-3x/week as needed for 8-2 weeks biceps tenodesis perfomred so no resitatnce her until June, AROM OK shoulder PROM AAROM, aROM, iso and resistancee for RC and scapula within biceps precautions. Progress HEP. PROM and anteerior scar massage. ice as needed, progress home function. Subjective Subjective: L shouldr scope clean out and biceps tenodesis. Cleaned up OA. 05/21 3 weeks ago. Been in sling since. Saw doc last week adn can wean out. Wear it at night and in public. Gets sore without sling. Precautions: biceps. Sleep is 5/10 if it spasms. insidious onset and painful for > 1 yr, it got stuck. Basic ADL: all I but modified. Fucntional L arm without pain. 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 Pilates prior and wants to get back. Pain L shoulder: Pain Intensity (Out of 10): 2 Pain Intensity Range: 0 and 2 Comment: spasms at night. Objective Objective: Sling donned and doffed I today. L arm. Relaxes l arm only when cued and then get full ext at elbow. Incisions are 3 arthroscopic and healed well, mild scarring only anterior incision. No redness, heat or swelling. PROM L shoulder 120 flexion 90 abd, 35 er, AAROM stick 130 flexion, 38 er. elbow aROM full L. Hesitant at end range. wrist adn hand normal B. Sensation UE WNL to gross light touch. strength elbow not testeed, shoulder contracts with hesitancy adn pain in rotations, flexion not tested. On L Balance/Special Test Scores Quick DASH Score: 56.8175 Goals Goal 1:: ST: full funcitonal fleexion adn er and IR to 150, 60 and L5 on l side Goal Time Frame: 2-4 Weeks Goal 2:: sleep without interruption at night from pain/spasm Goal Time Frame: 2-4 Weeks Goal 3:: L shoulder 99% back to normal movement and working without increased pain. Goal Time Frame: 8-12 Weeks Goal 4:: quickdash score 15 or less Goal Time Frame: 8-12 Weeks Goal 5:: I appropriate mgmt of condition, HEP Goal Time Frame: 8-12 Weeks Goal 6:: ST: dress without limitations Goal Time Frame: 4-6 Weeks Rehabilitation Potential Rehabilitation Potential: Good Anticipated Interventions Patient/Client Instruction: Educate patient on: Condition and Plan of Care For the Purpose of:: To decrease pain, To increase ROM, To improve muscle performance and motor function, To increase tolerance to activity/condition/position, To improve ability of physical actions for home/community/work/leisure and To improve gait and locomotor functions Therapeutic Exercise to Include: Strength training, Postural training, Flexibilty training, Passive ROM and Active ROM For the Purpose of:: To decrease pain, To increase ROM, To improve nutrient delivery to tissue, To improve muscle performance and motor function and To increase tolerance to activity/condition/position Manual Therapy Techniques to Include: Scar massage, Passive ROM and Soft tissue mobilization For the Purpose of:: To decrease pain, To increase ROM and To improve nutrient delivery to tissue Cryotherapy (ice pack, ice massage): Yes For the Purpose of:: To improve muscle performance and motor function and To increase tolerance to activity/condition/position Text: Thank you for the opportunity to evaluate your patient. For Medicare and Medicare HMO plans, please review the plan of care and approve it. It will need to be FAXED BACK to us at [phone] for Medicare purposes. For Medicare only, by signing this I certify the plan of care. Please let me know if there are questions or concerns regarding this plan of care. Physician Signature: Date:
--- NOTE | 2025-09-03 12:20 | HP.PTDCSUM ---
Discharge Summary D/C summary: It has been my pleasure to treat CARLOS MORIN referred by Dr. Ru Overton MD, with the diagnosis of biceps tendinitis L shoudler s/p arthro biceps tenodesis and clean 05/21 for a total of 18 visit(s). Discharge Date: Please see the following information for a summary of their discharge status. Subjective Subjective: Back to work next week. To doctor next week. Sore up and down. 2/10 when sore. More frequently not sore. Home activities are good, and HEP going well. Sleep is OK and ready to go back to work. Still hurts at night to move. Pain L shoulder: Pain Intensity (Out of 10): 2 Overall Improvement % Improvement: 70 Objective Objective/Function: 155 flexion, far less scap compensation today adn much improved. er to 50 L and IR to L3. Soreness prsists up and down but ready to go back to work subjectively and objectively. Strength flexiona dn abd and er just slightly less than [place], IR is good. biceps and triceps near symmetrical. Goals Goal 1:: ST: full funcitonal fleexion adn er and IR to 150, 60 and L5 on l side Goal Progress: Progressing Goal 2:: sleep without interruption at night from pain/spasm Goal Progress: Goal Met Goal 3:: L shoulder 99% back to normal movement and working without increased pain. Goal Progress: 70 Goal 4:: quickdash score 15 or less Goal Progress: Progressing Goal 5:: I appropriate mgmt of condition, HEP Goal Progress: Goal Met Goal 6:: ST: dress without limitations Goal Progress: Goal Met Plan Plan: d/c to HEP D/C Information d/c sentence: If there are questions or concerns regarding this patient's physical therapy, please feel free to call me at [phone]. Thank you for the referral of this patient. Sincerely, Chris Conde, DPT, OCS, CSCS Balance/Gait/Functional tests Balance/Special Test Scores Quick DASH Score: 15.9075 Improvement % Improvement: 70
== END 2025-09-03 19:00 | disposition home or self-care (01) ==
LOC: PT 12:00
PROVIDERS: PCP Family Medicine; Referring Provider Orthopaedic Surgery Sports Medicine; Visit Provider Orthopaedic Surgery Sports Medicine
DX: M75.22 Bicipital tendinitis, left shoulder (principal)
CPT/HCPCS: 97110; 97140; 97161; 97164; 97530